=== PATIENT | male | born 1975 | race Two or more races ===

== ENCOUNTER 2016-08-25 01:30 | Inpatient (IN) | payer MEDICAID ==
[2016-08-25] VITALS (84 sets, daily range): BP systolic 86–131; BP diastolic 43–109; PULSE 82–110; RESP 6–24; Ht 165.1 cm; Wt 86.1 kg
[~2016-08-25] VITALS: Ht 165.1 cm; Wt 86.1 kg
[2016-08-25] MEDS ORDERED: AMIODARONE 150 MG INJ ONE ×2 (01:46→02:40)
[2016-08-25] MEDS ORDERED: PROPOFOL 100 ML ONE (01:47)
[2016-08-25] MEDS ORDERED: PROPOFOL 100 ML IV STA (01:55)
[2016-08-25] MEDS ORDERED: SODIUM CHLORIDE 0.9% 500 ML BAG IV* STA (01:55)
[2016-08-25] MEDS ORDERED: VECURONIUM 100 MG in DEXTROSE 5% 100 ML IV ONE (01:55)
[2016-08-25] MEDS ORDERED: ASPIRIN 300 MG SUPP PR STA (01:55)
[2016-08-25] MEDS ORDERED: AMIODARONE 900 MG in DEXTROSE 5% 482 ML IV SCH ×4 (02:00)
[2016-08-25] MEDS ORDERED: PROPOFOL 100 ML IV ONE (02:00)
--- NOTE | 2016-08-25 02:10 | ERA ---
ER Documentation Chief Complaint Date/Time DATE: 08/25/16 TIME: 02:06 Chief Complaint HPI This is a 41-year-old male who comes in in cardiac arrest post V. fib. Patient was pulseless upon arrival. Upon arrival patient immediately placed on tire care manager which showed atrial fibrillation. ACLS started. Patient shocked multiple times. We were able to revive the patient. Hypothermia started immediately. No real history is known about this patient other than the fact that the family found him down for an unknown amount of time but not greater than [address] denton.of cardiology contacted immediately. Patient to go to laborer pipeline for intervention ROS All systems reviewed and are negative except as per history of present illness. Allergies Allergies: Coded Allergies: No Known Allergy (Unverified , 08/25/16) Physical Exam Physical Exam Const: [] Head: Atraumatic Eyes: Normal Conjunctiva ENT: Normal External Ears, Nose and Mouth. Neck: Full range of motion..~ No meningismus. Resp: Clear to auscultation bilaterally Cardio: Regular rate and rhythm, no murmurs Abd: Soft, non tender, non distended. Normal bowel sounds Skin: No petechiae or rashes Back: No midline or flank tenderness Ext: No cyanosis, or edema Neur: Awake and alert Psych: Normal Mood and Affect Results 24 hrs Laboratory Tests Test 08/25/16 01:48 Bedside Glucose 465mg/dL Current Medications Medications (Trade) Dose Ordered Sig/Stan Route PRN Reason Start Time Stop Time Status Last Admin Dose Admin Amiodarone HCl/ Dextrose (Cordarone Iv/ D5W) 500 ml @ 0 mls/hr Q0M IV 08/25/16 02:00 08/26/16 01:59 UNV Amiodarone HCl 150 mg 150 mg STK-MED ONCE .ROUTE 08/25/16 01:46 08/25/16 01:47 DC Propofol 100 ml @ ud STK-MED ONCE .ROUTE 08/25/16 01:47 08/25/16 01:48 DC Propofol (Diprivan) 100 ml @ 0 mls/hr TITRATE ONCE IV 08/25/16 02:00 08/25/16 02:01 UNV Sodium Chloride 500 ml 500 ml ONCE STAT IV* 08/25/16 01:55 08/25/16 01:58 DC Propofol (Diprivan) 100 ml @ 0 mls/hr ONCE STAT IV 08/25/16 01:55 08/25/16 01:58 DC Aspirin 300 mg 300 mg ONCE STAT AL 08/25/16 01:55 08/25/16 01:58 DC Vecuronium [place] 100 mg/ Dextrose 100 ml @ 0 mls/hr Q0M ONCE IV 08/25/16 01:55 08/25/16 01:58 DC Amiodarone HCl/ Dextrose (Cordarone Iv/ D5W) 500 ml @ 0 mls/hr Q0M IV 08/25/16 02:00 08/26/16 01:59 Procedures/MDM EKG: Post arrest Rate/Rhythm: [Normal Sinus Rhythm] QRS, ST, T-waves: ST segment elevation in 1 aVL with reciprocal depressions and 2 3 aVF Impression: STEMI Chest X-ray 1V Interpreted by me: Soft Tissue: No acute abnormalities Bones: No acute abnormalities Mediastinum/Cardiac Silhouette/Lungs: [No acute abnormalities] Medical decision-makin-year-old gentleman with ventricular fibrillation arrest. Patient is intubated with a central line and hypothermic protocol has been initiated. Per dog handler, patient given rectal aspirin along with heparin intravenously. Patient will be admitted to intensive care unit before first go to laborer pipeline. More than likely patient suffered massive cardiac event. Family notified. Critical Care: Time: 45 minutes Treatments/Evaluations: Close monitoring and treatment of unstable vital signs, cardiorespiratory, and neurologic status, while maintaining tight balance of fluid, respiratory, and cardiac interventions. Endotracheal Intubation by me: Pre assessment performed. See preceding note for details. Pre-oxygenation performed with 100% oxygen RSI: Performed w/o complication or hypoxic events. Medications as ordered. Blade: [Mac 4] ET Tube: 7.5 cm Depth: 24 cm at the lip Intubation confirmed by colorimetric CO2, equal breath sounds, quiet over the stomach. Chest X-ray 1V Interpreted by me: 3 cm above the maia ET tube. Normal soft tissue, No pneumothorax. Central Line Placement by me: Patient consented, sterilely draped, full prep, gown, glove, mask, time out performed. Anesthesia: 1% lidocaine locally Location: Left subclavian Device: Multiple lumen Technique: Seldinger technique. Secured with suture. Results: Venous return from all ports with easy saline flush. No complications. Guide wire retrieved and disposed of. [Chest X-ray 1V Interpreted by me: Central line in SVC, Normal soft tissue, No evidence of pneumothorax.] Departure Diagnosis: Primary Impression: Cardiac arrest Additional Impression: STEMI (ST elevation myocardial infarction) Qualified Code: I21.3 - ST elevation myocardial infarction (STEMI), unspecified artery Condition: Critical ARIES DUNBAR Aug 25, 2016 02:10
[2016-08-25] MEDS ORDERED: NA BICARBONATE 8.4% 50 ML SYG IV STA (02:20)
[2016-08-25 02:22] LABS: ADD SCAN DIFF NO
[2016-08-25 02:24] LABS: ABNORMAL IP MESSAGE 1; HEMATOCRIT 54.6 % (42.0-52.0); HEMOGLOBIN 16.4 g/dl (14.0-18.0); MEAN CORPUSCULAR HEMOGLOBIN 30.3 pg (29.0-33.0); MEAN CORPUSCULAR VOLUME 100.7 fl (82.0-101.0); MEAN PLATELET VOLUME 10.9 fl (7.4-10.4); PLATELET COUNT 74 10^3/UL (140-415); RED BLOOD COUNT 5.42 10^6/ul (4.70-6.10); RED CELL DISTRIBUTION WIDTH 13.7 % (11.5-14.5); WHITE BLOOD COUNT 19.3 10^3/ul (4.8-10.8)
[2016-08-25] MEDS ORDERED: NORepinephrine 8MG/250 ML (PMX 250 ML ONE ×2 (02:29→08:07)
[2016-08-25] MEDS ORDERED: HEPARIN 5,000 UNIT/0.5 ML VIAL IV ONE (02:30)
[2016-08-25 02:34] LABS: ALBUMIN 3.8 g/dl (3.3-4.9); INR 1.67; POTASSIUM 4.6 mmol/L (3.5-5.1); PROTIME 19.8 Sec (12.2-14.2); PT RATIO 1.5
[2016-08-25 02:36] LABS: CREATININE 1.1 mg/dl (0.61-1.24)
--- NOTE | 2016-08-25 02:36 | RADRPT ---
PROCEDURE: Chest. CLINICAL INDICATION: Chest pain. TECHNIQUE: Single frontal view of the chest was obtained. COMPARISON: None. FINDINGS: There is an endotracheal tube 4.5 cm above the maia. The cardiac silhouette is within normal limi ts. The aortic arch is unremarkable. There are hazy and patchy opacities bilaterally. There is no pleural effusion. There is no pneumothorax. IMPRESSION: Bilateral hazy and patchy opacities could represent pulmonary edema and/or multifocal pneumonia. Endotracheal tube in place. .Priyank Lucero MD, MD Date Time Electronically viewed and signed by .Priyank Lucero MD, on 08/25/2016 02:36 .T/
[2016-08-25 02:37] LABS: ALBUMIN/GLOBULIN RATIO 1.22; BILIRUBIN,INDIRECT 0.3 mg/dl (0-1.1); BILIRUBIN,TOTAL 0.3 mg/dl (0.2-1.3); TOTAL PROTEIN 6.9 g/dl (6.1-8.1)
[2016-08-25 02:38] LABS: CALCIUM 9.4 mg/dl (8.4-10.2); MAGNESIUM 2.7 mg/dl (1.7-2.5)
[2016-08-25] MEDS ORDERED: EPINEPHrine 0.1 MG/ML SYG ONE (02:40)
[2016-08-25] MEDS ORDERED: NA BICARBONATE 8.4% 50 ML SYG ONE ×4 (02:40→14:00)
[2016-08-25] MEDS ORDERED: DEXTROSE 50% 50 ML SYRINGE ONE (02:40)
[2016-08-25] MEDS ORDERED: CA CHLORIDE 10% 10 ML SYRINGE ONE (02:40)
[2016-08-25] MEDS ORDERED: IOHEXOL 350MG/ML 50 ML BTL ONE (02:45)
[2016-08-25] MEDS ORDERED: MIDAZOLAM 1 MG/ML 2 ML INJ ONE (02:45)
[2016-08-25] MEDS ORDERED: HEPARIN 1000 UNITS/ML 10 ML INJ ONE (02:45)
[2016-08-25] MEDS ORDERED: FENTAnyl 50 MCG/ML VIAL ONE (02:45)
[2016-08-25] MEDS ORDERED: LIDOCAINE 1% (MDV) 20 ML INJ ONE (02:45)
[2016-08-25] MEDS ORDERED: IODIXANOL LOCM 100 ML BTL ONE (02:45)
[2016-08-25] MEDS ORDERED: VERAPAMIL 5 MG INJ ONE (02:46)
[2016-08-25] MEDS ORDERED: NITROGLYCERIN (IC) 100 MCG/ML INJ ONE (02:46)
[2016-08-25 02:49] LABS: TROPONIN-I 0.063 ng/ml (0.00-0.12)
[2016-08-25 02:52] LABS: PHOSPHORUS 13.6 mg/dl (2.5-4.9)
[2016-08-25 03:10] LABS: PARTIAL THROMBOPLASTIN TIME 114.2 Sec (25.0-35.0)
[2016-08-25] MEDS ORDERED: BIVALIRUDIN 250MG /NS 50 ML 50 ML IVPB ONE (03:23)
[2016-08-25] MEDS ORDERED: PROPOFOL 20 ML ONE ×2 (03:25→03:28)
[2016-08-25 03:53] LABS: EOSINOPHILS # 1.2 10^3/ul (0.0-0.5); LYMPHOCYTES # 13.1 10^3/ul (0.8-2.9); MONOCYTE # 0.8 10^3/ul (0.3-0.9); NEUTROPHIL # 2.9 10^3/ul (1.6-7.5)
[2016-08-25 03:54] LABS: PLATELET ESTIMATE PLT APPEAR DECREASED
[2016-08-25] MEDS ORDERED: SOD CHLORIDE 0.9% 1,000 ML IV SCH ×2 (04:05→05:03)
[2016-08-25] MEDS ORDERED: INSULIN HUMAN REGULAR 100 UNIT in SOD CHLORIDE 0.9% 99 ML IV SCH ×2 (04:41→05:03)
--- NOTE | 2016-08-25 04:46 | HP ---
Date/Time of Note Date/Time of Note DATE: 08/25/16 TIME: 04:40 Assessment/Plan VTE Prophylaxis VTE Prophylaxis Intervention: contraindicated (Bleeding Risk. Possibly bleeding now - found BRBPR. Labs pending. R/O DIC) Assessment/Plan Assessment/Plan 1) Cardiac arrest, revived in ER after several rounds of CPR and multiple shocks, intubated - Revived. Found to have post arrest STEMI, taken directly to the forestry farm laborer 2) STEMI (ST elevation myocardial infarction) s/p Angioplasty and balloon stent placement - Admit to Intensive Care - Majority of orders provided by Dr. Dyer - Due to get hypothermia treatment - CONSULT: Critical Care - Dr. Angel - Insulin Drip and follow-up as requested by Dr. Dyer. Hgb A1c pending. HPI/ROS Admit Date/Time Admit Date/Time 08/25/16 0441 Hx of Present Illness This is a 41 year old male who just arrived in the ICU after undergoing successful Coronary Artery Catheterization with Angioplasty and Balloon Pump placement by Dr. Dyer. He is currently intubated and on a ventilator. Labs are pending to help with immediate management, and a few minutes ago, he passed BRBPR. Labs are pending. If he is in ER Physician reports: this is a 41-year-old male who comes in in cardiac arrest post V. fib. Patient was pulseless upon arrival. Upon arrival patient immediately placed on cardiac rehabilitation program director which showed atrial fibrillation. ACLS started. Patient shocked multiple times. We were able to revive the patient. Hypothermia started immediately. No real history is known about this patient other than the fact that the family found him down for an unknown amount of time but not greater than [address] Dyer.of cardiology contacted immediately. Patient to go to forestry farm laborer for intervention. He was intubated and a central line placed while in the ER. ROS Unable to obtain due to Critical Condition of Chronic Trach patient, now on Ventilator in ICU. PMH/Family/Social Social History Smoking Status: Unknown if ever smoked Exam/Review of Systems Vital Signs Vitals Vital Signs Date Time Temp Pulse Resp B/P Pulse Ox O2 Delivery O2 Flow Rate FiO2 08/25/16 01:57 83 16 94 100 08/25/16 01:50 99.1 92/64 Exam Exam General: Intubated, Ventilated, Sedated Eyes: Sclera White HENT: Normocephalic/Atraumatic, External Ears/Nose Normal Neck: Trachea Midline Cardiovascular: Normal Rate, Regular Rhythm, No Murmur, No Extra Sounds. Radial pulse +2/4. No pedal Edema. Pulmonary: Coarse breath sounds throughout Gastrointestinal: Normoactive Bowel Sounds, Soft, Non-Tender/Non-Distended, No Hepatosplenomegaly Appreciated Urogenital: Deferred Musculoskeletal: Normal Muscle Bulk, On Propofol and a Paralytic Neurological: Unable to assess Integumentary: Normal Moisture and Temperature, Good Turgor, No Jaundice, No Rash Lymphatic: No Cervical Lymphadenopathy Psychiatric: Unable to assess Labs Result Diagram: 08/25/1621408/25/16214 Medications Medications Current Medications Medications (Trade) Dose Ordered Sig/Stan Route PRN Reason Start Time Stop Time Status Last Admin Dose Admin Amiodarone HCl/ Dextrose (Cordarone Iv/ D5W) 500 ml @ 0 mls/hr Q0M IV 08/25/16 02:00 08/26/16 01:59 UNV Amiodarone HCl 150 mg 150 mg STK-MED ONCE .ROUTE 08/25/16 01:46 08/25/16 01:47 DC Propofol 100 ml @ ud STK-MED ONCE .ROUTE 08/25/16 01:47 08/25/16 01:48 DC Propofol (Diprivan) 100 ml @ 0 mls/hr TITRATE ONCE IV 08/25/16 02:00 08/25/16 02:01 UNV Sodium Chloride 500 ml 500 ml ONCE STAT IV* 08/25/16 01:55 08/25/16 01:58 DC Propofol (Diprivan) 100 ml @ 0 mls/hr ONCE STAT IV 08/25/16 01:55 08/25/16 01:58 DC Aspirin 300 mg 300 mg ONCE STAT OK 08/25/16 01:55 08/25/16 01:58 DC Vecuronium [place] 100 mg/ Dextrose 100 ml @ 0 mls/hr Q0M ONCE IV 08/25/16 01:55 08/25/16 01:58 DC Amiodarone HCl/ Dextrose (Cordarone Iv/ D5W) 500 ml @ 0 mls/hr Q0M IV 08/25/16 02:00 08/26/16 01:59 Procedures Procedures Test 08/25/16 01:48 Bedside Glucose 465mg/dL EKG: Post arrest Interpreted by ER Physician Rate/Rhythm: [Normal Sinus Rhythm] QRS, ST, T-waves: ST segment elevation in 1 aVL with reciprocal depressions and 2 3 aVF Impression: STEMI PROCEDURE: Chest. CLINICAL INDICATION: Chest pain. TECHNIQUE: Single frontal view of the chest was obtained. COMPARISON: None. FINDINGS: There is an endotracheal tube 4.5 cm above the maia. The cardiac silhouette is within normal limits. The aortic arch is unremarkable. There are hazy and patchy opacities bilaterally. There is no pleural effusion. There is no pneumothorax. IMPRESSION: Bilateral hazy and patchy opacities could represent pulmonary edema and/or multifocal pneumonia. Endotracheal tube in place. LESLEY NAILS DO Aug 25, 2016 04:46 pneumothorax.
[2016-08-25] MEDS ORDERED: DEXTROSE 50% 50 ML SYRINGE IV PRN ×4 (05:00→05:30)
[2016-08-25] MEDS: PROPOFOL 100 ML IV SCH ×4 (05:00→21:07)
[2016-08-25] MEDS: ACCU-CHEK XX SCH ×18 (05:25→23:19)
[2016-08-25] MEDS ORDERED: MEPERIDINE 25 MG INJ IV PRN ×2 (05:30)
[2016-08-25] MEDS ORDERED: ACETAMINOPHEN 650MG/20.3ML CUP PO PRN (05:30)
[2016-08-25] MEDS ORDERED: PROPOFOL 100 ML IV SCH (05:30)
[2016-08-25] MEDS ORDERED: ACCU-CHEK XX SCH (05:30)
[2016-08-25] MEDS ORDERED: ACETAMINOPHEN 650 MG SUPP PR PRN (05:30)
--- NOTE | 2016-08-25 05:43 | SP ---
DATE OF PROCEDURE: 08/25/2016 NAME OF PROCEDURE: 1. Emergent left heart catheterization, selective right and left coronary angiography. 2. Angioplasty of left anterior descending artery: 3. Angioplasty of the left circumflex artery. 4. Intraaortic balloon pump placement. 5. Moderate sedation for more than 45 minutes. SURGEON: Dennis Dyer MD CLINICAL INDICATIONS: A 41-year-old gentleman who presented with ventricular fibrillation cardiac a rrest, ST elevation [place]. EKG post-infarct showed diffuse ST elevation myocardial infarction in the a nterolateral leads consistent with anterolateral ST elevation myocardial infarction. FINDINGS: 1. Left main coronary artery is a long vessel. It is large with about 20% stenosis. 2. Left anterior descending is a long vessel which wraps around the apex. It has about 99% mid les ion. After successful angioplasty of this lesion, no significant residual stenosis left. 3. Left circumflex artery is a moderate sized vessel. It is extremely tortuous. Distally, it has about 99% stenosis with CANDACE 2 flow. After successful PTCA of this lesion, there was less than 10% residual stenosis left with CANDACE 3 flow. 4. Right coronary artery is a moderate sized vessel. It is 100% occluded proximally. There are le ft to right collaterals noted consistent with chronic total occlusion right coronary artery. 5. LVEDP is about 22. No significant gradient was noted across the aortic valve. DESCRIPTION OF PROCEDURE: Written informed consent was obtained. The risks and benefits were discu ssed with the patient's nephew and brother. The patient was emergently brought to the cardiovascular lab director, [facility] in supine position. Right groin was prepped and draped in sterile fashion. Right coronary was anesthetized with 1% lidocaine. Using modified Seldinger technique, a 6-Bruneian sheath was placed in right femoral artery. JR4 catheter was advanced into the left ventricle. Hemodynamics were record ed, aortic pressure was measured. It was engaged in the right coronary artery, and angiogram was ob tained. Of note, initial blood pressure was 70/43. Then, JL4 7-Bruneian guide catheter was advanced and engaged the left main coronary artery and angiogram was obtained. A BMW wire used to cross into the LAD lesion. A 2.5 x 12 balloon was used and inflated across the LAD, and the flow was restored . Angiogram was obtained. I decided not to stent the area because of concern about him bleeding. The patient with low platelet, elevated INR. We have already noticed significant bleeding from the ET tube suction. He also has thrombocytopenia, history of poor compliance with medication. I used a 3.0 noncompliant balloon which was placed across the lesion, multiple times inflated. Angiogram w as obtained. Then, BMW wire was used to cross into the left circumflex artery. A 2.5 x 12 balloon was used and advanced across the lesion with difficulty given the severe tortuosity of this vessel. The balloon was inflated multiple times with prolonged inflation up to 12 atmospheres. Angiogram w as obtained. At the LAD, there was another lesion after the area which was ballooned. I was not rubalcava re if it was spasm or hemodynamically significant stenosis. Nitroglycerine intracoronary was given. Improvement was noted, but it was not resolved. I used the same 2.0 balloon, placed across this l esion, and multiple times inflated again. Final angiogram was obtained which showed CANDACE 3 flow, no evidence of dissection, and less than 10 residual stenosis. Catheter and Glidewire were removed. Right femoral angiogram was performed. Given his hemodynamic instability, intraaortic balloon pump was placed as well under direct fluoroscopy. IMMEDIATE COMPLICATIONS: None. TOTAL CONTRAST USED: 140 mL of Visipaque. CONCLUSION: Successful angioplasty of the LAD, left circumflex artery, intraaortic balloon pump. RECOMMENDATIONS: Aggressive medical therapy. Hypothermia will be continued. Intraaortic balloon p ump support will be continued. ICU care, vent support will be continued. Discussed with adis lu. PROGNOSIS: Guarded. Dictated By: DENNIS DUBOSE/PEÑA Conf#: [id number] DID#: [id number]
[2016-08-25] MEDS ORDERED: ARTIFICIAL TEARS 15 ML OPH BOTH EYES SCH (06:00)
[2016-08-25] MEDS ORDERED: PHENYLephrine 20MG IN 250 ML 250 ML IV SCH (06:00)
[2016-08-25] MEDS ORDERED: OCULAR LUBRICANT 3.5 GM OPH OINT BOTH EYES SCH (06:00)
[2016-08-25] MEDS ORDERED: PHENYLephrine 40 MG in DEXTROSE 5% 496 ML IV SCH (06:30)
[2016-08-25 06:31] LABS: ADD SCAN DIFF NO
[2016-08-25 06:42] LABS: ALBUMIN 3.5 g/dl (3.3-4.9)
[2016-08-25 06:43] LABS: ABNORMAL IP MESSAGE 1; HEMATOCRIT 49.8 % (42.0-52.0); HEMOGLOBIN 16.3 g/dl (14.0-18.0); MEAN CORPUSCULAR HEMOGLOBIN 30.7 pg (29.0-33.0); MEAN CORPUSCULAR HGB CONC 32.7 g/dl (32.0-37.0); MEAN CORPUSCULAR VOLUME 93.8 fl (82.0-101.0); MEAN PLATELET VOLUME 10.4 fl (7.4-10.4); PLATELET COUNT 204 10^3/UL (140-415); POTASSIUM 3.4 mmol/L (3.5-5.1); RED BLOOD COUNT 5.31 10^6/ul (4.70-6.10); WHITE BLOOD COUNT 34.5 10^3/ul (4.8-10.8)
[2016-08-25 06:44] LABS: INR 3.09; PROTIME 32.3 Sec (12.2-14.2); PT RATIO 2.5
[2016-08-25 06:45] LABS: ALBUMIN/GLOBULIN RATIO 1.06; BILIRUBIN,INDIRECT 0.6 mg/dl (0-1.1); BILIRUBIN,TOTAL 0.6 mg/dl (0.2-1.3); CREATININE 1.22 mg/dl (0.61-1.24); TOTAL PROTEIN 6.8 g/dl (6.1-8.1)
[2016-08-25 06:46] LABS: CALCIUM 8.3 mg/dl (8.4-10.2); PHOSPHORUS 6.6 mg/dl (2.5-4.9)
[2016-08-25 07:31] LABS: PARTIAL THROMBOPLASTIN TIME > 180.0 Sec (25.0-35.0)
--- NOTE | 2016-08-25 07:39 | CONS ---
DATE OF ADMISSION: 08/25/2016 DATE OF CONSULTATION: 08/25/2016 CARDIOLOGY CONSULTATION REASON FOR CONSULTATION: Cardiopulmonary arrest and ST elevation myocardial infarction. CHIEF COMPLAINT: Cardiac arrest. HISTORY OF PRESENT ILLNESS: History was obtained from the patient's nephew. From discussion with Jesus boucher ____ and also staff, he is an unfortunate 41-year-old gentleman with history of coronary artery d isease, status post PCI apparently 10 years ago, who does not appear to be very compliant with his m edications. The patient was at home on ____; however, today he was found by his nephew to be "choki ng and gagging." He was splashed some water on his face and tried to get him better. The patient w as unresponsive. He put him down, and paramedics were called. Paramedics monitored and noted the p atient to be in V-fib arrest. Multiple shocks were done. They had difficulty extubating the patien t. The patient was intubated in the emergency room. The EKG has shown marked diffuse ST elevation anterolaterally. I was called active code STEMI. The patient has been unresponsive, and hypothermi a protocol has been done. Has been hypotensive and placed on Levophed. PAST MEDICAL HISTORY: Obtained from the family members. History of hypertension, history of morin ry artery disease, status post AK, status post PCI about 10 years ago, history of dyslipidemia. MEDICATIONS AT HOME: Unclear if he takes any medication or not. He is not taking his cholesterol m edication apparently. SOCIAL HISTORY: He smokes. He has been a heavy drinker as well. FAMILY HISTORY: Positive for coronary artery disease. REVIEW OF SYSTEMS: Unable to obtain as well. MEDICATIONS: At home unclear. He apparently does not take much medication. PHYSICAL EXAMINATION: VITAL SIGNS: Temperature 99.1, heart rate of 98, blood pressure 92/64, respiration rate of 16, satu rating 94%, 100% on oxygen. HEENT: Status post intubation on the vent. Pupils are dilated. CARDIOVASCULAR: Regular rate and rhythm. PULMONARY: Diffuse rhonchi. GASTROINTESTINAL: Soft, nontender. EXTREMITIES: Trivial edema. NEUROLOGIC: No response to verbal stimuli. LABORATORY: WBC of 20.3, hemoglobin 15.4, platelets of 74. INR is 1.67. EKG showed sinus rhythm with marked ST elevation diffusely consistent with anterolateral ST elevatio n myocardial infarction. ASSESSMENT AND PLAN: 1. Cardiopulmonary arrest. 2. Ventricular fibrillation cardiac arrest. 3. Acute diffuse anterolateral ST elevation myocardial infarction with history of coronary artery d isease. 4. Severe hyperglycemia consistent with diabetes. 5. History of dyslipidemia. 6. History of percutaneous coronary intervention. 7. Poor compliance. 8. Alcohol use. 9. History of tobacco use. 10. Congestive heart failure. 11. Cardiogenic shock. RECOMMENDATIONS: The patient has been given aspirin and heparin. He will be taken to the labor relations teacher immediately as soon as the labor relations teacher is available. I have explained the high risk situation and high mortality rate as well as risk of stroke, AK, vascular complication, renal failure, etc. to the pat ient's brother and nephew who were at the bedside. They have consented to procedure. The patient's brother, however, appeared to be intoxicated though. Prognosis appears to be guarded, but given hi s young age and his presentation, I explained to the family that we will do all we can including car diac catheterization to provide him the best chance. Dictated By: DENNIS DUBOSE/PEÑA Conf#: [id number] DID#: [id number]
[2016-08-25] MEDS: PIPER-TAZO 3.375 GM IV (PMX) 100 ML IVPB SCH ×3 (08:16→17:31)
[2016-08-25 08:58] LABS: AADO2 Arterial 589.9 mmHg (7.0-24.0); Arterial Base Excess -5.8 mmol/L (-3.0-3); Arterial COHb 3.1 % (0.0-3.0); Arterial Fraction of Oxyhgb 89.2 % (93.0-99.0); Arterial HCO3 21.6 mmol/L (22.0-26.0); Arterial MetHb 0.3 % (0.0-1.5); Arterial Total Hemglobin 14.9 g/dl (12.0-18.0); MODE VENT - AC
[2016-08-25 08:59] LABS: AADO2 Arterial 594.5 mmHg (7.0-24.0); Arterial Base Excess -11.8 mmol/L (-3.0-3); Arterial COHb 3.8 % (0.0-3.0); Arterial Fraction of Oxyhgb 88.8 % (93.0-99.0); Arterial HCO3 15.4 mmol/L (22.0-26.0); Arterial MetHb 0.3 % (0.0-1.5); Arterial Total Hemglobin 15.2 g/dl (12.0-18.0); Blood Gas Low PEEP Setting 0 cmH2O; MODE VENT - AC
[2016-08-25 08:59] LABS: AADO2 Arterial 554.2 mmHg (7.0-24.0); Allen Test ACCEPTAB; Arterial COHb 5.1 % (0.0-3.0); Arterial Fraction of Oxyhgb 89.8 % (93.0-99.0); Arterial HCO3 11.8 mmol/L (22.0-26.0); Arterial MetHb 0.3 % (0.0-1.5); Arterial Total Hemglobin 15.4 g/dl (12.0-18.0); MODE VENT - AC
[2016-08-25] MEDS ORDERED: PANTOPRAZOLE 40 MG INJ IV SCH (09:00)
[2016-08-25] MEDS ORDERED: FAMOTIDINE 20 MG INJ IV SCH (09:00)
[2016-08-25 09:11] LABS: FIBRINOGEN < 40.0 mg/dl (207-461)
--- NOTE | 2016-08-25 09:24 | RADRPT ---
PROCEDURE: XR Abdomen CLINICAL INDICATION: Confirm NG/OG tube placement TECHNIQUE: An AP supine radiograph of the abdomen was submitted. COMPARISON: None FINDINGS: No NG tube or OG tube is identified. The stomach is moderately distended with gas. The bowel gas pattern otherwise reflects an ileus. No organomegaly or discrete mass is identified. No pathological calcification is identified. Residual contrast is seen within the urinary tracts and a Jacobo catheter is seen within a nondistend ed bladder. The osseous elements appear intact. IMPRESSION: 1. Moderate gaseous distension of the stomach with the bowel gas pattern otherwise reflecting a mil d ileus. 2. Residual contrast is seen within the urinary tract with a Jacobo catheter seen in the bladder. 3. An NG tube is not identified. Physician Kristen Date Time Electronically viewed and signed by Physician Kristen on 08/25/2016 09:24 /
[2016-08-25 09:27] LABS: D-DIMER > 10000.00 ng/ml (<460)
--- NOTE | 2016-08-25 09:28 | RADRPT ---
PROCEDURE: XR Chest AP portable CLINICAL INDICATION: CHF TECHNIQUE: An AP portable radiograph of the chest was submitted. COMPARISON: 08/25/2016 FINDINGS: Support Hardware: An NG tube tip projects to the neck at the level of C6. An endotracheal tube is s atisfactorily positioned. A loop recorder is identified. Cardiovascular: The heart size remains normal. The pulmonary vasculature appears congested. Lung Ragland: Asymmetrical bilateral pulmonary infiltrates are evident more extensive than alveolar o n the right and more interstitial on the left having worsened since the previous study. Pleural Spaces: No pneumothorax or pleural effusion is identified. Osseous Structures: The osseous structures appear intact. Soft Tissues: The soft tissues appear unremarkable. IMPRESSION: 1. NG tube tip projects to the level of C6 wall and endotracheal tube is satisfactorily positioned. 2. Normal sized heart with the pulmonary vasculature appearing congested. 3. Asymmetrical pulmonary infiltrates more extensive alveolar on the right and more interstitial on the left, worsened from the previous. Physician Kristen Date Time Electronically viewed and signed by Physician Kristen on 08/25/2016 09:28 /
[2016-08-25] MEDS: morphine 2 MG INJ IV PRN ×2 (10:44→15:53)
[2016-08-25] MEDS: PANTOPRAZOLE 40 MG INJ IV SCH ×2 (10:49→21:05)
[2016-08-25 11:15] LABS: EOSINOPHILS # 0.3 10^3/ul (0.0-0.5); LYMPHOCYTES # 3.5 10^3/ul (0.8-2.9); MYELOCYTES # 0.3; NEUTROPHIL # 23.8 10^3/ul (1.6-7.5)
[2016-08-25 11:20] LABS: AADO2 Arterial 493.9 mmHg (7.0-24.0); Arterial Base Excess 0.5 mmol/L (-3.0-3); Arterial COHb 0.3 % (0.0-3.0); Arterial Fraction of Oxyhgb 98.2 % (93.0-99.0); Arterial HCO3 24.6 mmol/L (22.0-26.0); Arterial MetHb 0.4 % (0.0-1.5); Arterial Total Hemglobin 16.5 g/dl (12.0-18.0); MODE VENT - AC
[2016-08-25] MEDS ORDERED: POTASSIUM CHLORIDE 250 ML IVPB ONE (11:30)
--- NOTE | 2016-08-25 12:06 | CONS ---
Date/Time of Note Date/Time of Note DATE: 08/25/16 TIME: 12:01 Assessment/Plan Assessment/Plan Additional Assessment/Plan X-ray was reviewed from today which is showing a right upper lobe infiltrate. Endotracheal tube is at an adequate level. Ventilator setting; AC of 18, tidal volume 500, PEEP of 5, 100% FiO2. Assessment recommendations; 1. Patient admitted for cardiac arrest due to acute [place] underwent emergent coronary angiography. 2. Prior history of coronary artery disease. 3. Status post CPR lasting proximity 10 minutes patient however exhibiting excellent mental status. Not requiring hypothermia protocol. 4. Right upper lobe pneumonia, likely aspiration. 5. Some element of intravascular volume depletion. 6. Cardiogenic shock. Currently requiring intra-aortic balloon pump and one-to -one augmentation. Obtain a repeat blood gas on current ventilator settings. Once ABGs obtained I will review it and make further recommendations regarding ventilator settings. Meanwhile add cefepime 1 g IV every 12 hours. Obtain a follow-up chest x-ray in 24 hours. Wean off Levophed as tolerated. Consultation Date/Type/Reason Admit Date/Time 08/25/16 0441 Date of Consultation: Aug 25, 2016 Type of Consultation: Pulmonary/critical care Reason for Consultation Pulmonary consultations requested for evaluation of respiratory failure. Patient admitted with cardiac arrest due to acute [place]. History presenting; patient is a 41-year-old white male who was brought into the emergency room after undergoing cardiac arrest. Patient was taken emergently to the [facility] where emergent coronary angiography was performed to of the lesions required stenting of the patient did have 100% RCA occlusion which could not be stented. The patient has remained on ventilator currently requiring intra-aortic balloon pump with one-to-one augmentation ratio. The patient despite undergoing CPR is completely awake alert and has remained hemodynamically stable. Past medical history; 1. Patient with a history of prior coronary artery disease status post PTCA about 10 years ago. 2. History of noncompliance with medication. Medications; were reviewed. Allergies; are none. Social history; patient does not smoke. Family history; patient has a supportive family. Various family members have heart disease. Occupational history; not available. Review of systems; limited review of systems could be obtained patient denies any headache, any chest pain, any shortness of breath, any abdominal pain, nausea vomiting. General exam; young male, orally intubated, awake currently in no distress. Social History Smoking Status: Current every day smoker Exam/Review of Systems Vital Signs Vitals Vital Signs Date Time Temp Pulse Resp B/P Pulse Ox O2 Delivery O2 Flow Rate FiO2 08/25/16 09:45 89 16 121/72 100 08/25/16 09:00 Mechanical Ventilator 08/25/16 08:15 97.5 08/25/16 08:00 100 Intake and Output 08/24/16 08/24/16 08/25/16 15:00 23:00 07:00 Intake Total 150 ml Output Total 1000 ml Balance -850 ml Exam HEENT examined; supple neck, no JVD. No lymphadenopathy. Midline trachea. No thyromegaly. Orally intubated. Pupils are midsize and reactive to light. No neck masses. Chest examination; clear to auscultation. S1-S2 audible, no murmurs. Regular rhythm. Abdomen examination; soft, nondistended. No organomegaly. Bowel sounds audible. Extremity exam is; no peripheral edema. Pulses 1+ bilaterally. No clubbing. [employer] examination; patient is awake alert follows commands moves all 4 extremities. Results Result Diagram: 08/25/1659908/25/16599 Results 24 hrs Laboratory Tests Test 08/25/16 01:48 08/25/16 01:55 08/25/16 02:15 08/25/16 02:30 Bedside Glucose 465 *H Blood Gas Specimen Source Blood arterial Blood arterial Arterial Blood Date Drawn 08/25/2016 2:30:00 AM 08/25/2016 3:05:10 AM Arterial Blood pH (Temp corrected) 6.979 *L 7.209 *L Arterial Blood pCO2 (Temp correct) 51.5 H 39.6 Arterial Blood pO2 (Temp corrected) 107.3 H 78.9 L Arterial Blood HCO3 11.8 L 15.4 L Arterial Blood Base Excess -20.0 L -11.8 L Arterial Blood Oxygen Saturation 94.9 L 92.6 L Gregory Test ACCEPTAB N/A Arterial Blood Gas Puncture Site Right Radial A-Line Arterial Blood Carboxyhemoglobin 5.1 H 3.8 H Arterial Blood Methemoglobin 0.3 0.3 Blood Gas A-a O2 Differential 554.2 H 594.5 H Oxyhemoglobin Percent 89.8 L 88.8 L Total Hemoglobin 15.4 15.2 Blood Gas Temperature 37.0 37.0 Blood Gas Respiration Rate 16.0 16.0 Blood Gas Actual Respiration Rate 16 16 Blood Gas Modality VENT - AC VENT - AC FiO2 100.0 100.0 Blood Gas Tidal Volume 600.0 600.0 Blood Gas High PEEP Setting 5.0 Blood Gas Critical Value Read Back DR CHAO Knight Blood Gas Notified Whom STEFFANY AA Blood Gas Notified Time 08/25/2016 2:38:00 AM 08/25/2016 3:20:12 AM White Blood Count 19.3 H Red Blood Count 5.42 Hemoglobin 16.4 Hematocrit 54.6 H Mean Corpuscular Volume 100.7 Mean Corpuscular Hemoglobin 30.3 Mean Corpuscular Hemoglobin Concent 30.0 L Red Cell Distribution Width 13.7 Platelet Count 74 L Mean Platelet Volume 10.9 H Neutrophils % 15.0 L Lymphocytes % 68.0 H Reactive Lymphocytes % 7.0 Monocytes % 4.0 Eosinophils % 6.0 Nucleated Red Blood Cells % 1.0 H Neutrophils # 2.9 Lymphocytes # 13.1 H Monocytes # 0.8 Eosinophils # 1.2 H Differential Comment MANUAL DIFF Platelet Estimate PLT APPEAR DECREASED Prothrombin Time 19.8 H Prothrombin Time Ratio 1.5 INR International Normalized Ratio 1.67 Activated Partial Thromboplast Time 114.2 *H Sodium Level 145 H Potassium Level 4.6 Chloride Level 99 Carbon Dioxide Level 17 L Anion Gap 34 H Blood Urea Nitrogen 16 Creatinine 1.10 Glucose Level 264 H Calcium Level 9.4 Phosphorus Level 13.6 H Magnesium Level 2.7 H Total Bilirubin 0.3 Direct Bilirubin 0.00 Indirect Bilirubin 0.3 Aspartate Amino Transf (AST/SGOT) 178 H Alanine Aminotransferase (ALT/SGPT) 230 H Alkaline Phosphatase 92 Troponin I 0.063 Total Protein 6.9 Albumin 3.8 Globulin 3.10 Albumin/Globulin Ratio 1.22 Blood Gas Low PEEP Setting 0 Test 08/25/16 03:43 08/25/16 05:03 08/25/16 05:53 08/25/16 06:00 Blood Gas Specimen Source Blood arterial Arterial Blood Date Drawn 08/25/2016 3:43:28 AM Arterial Blood pH (Temp corrected) 7.258 *L Arterial Blood pCO2 (Temp correct) 49.4 H Arterial Blood pO2 (Temp corrected) 73.7 L Arterial Blood HCO3 21.6 L Arterial Blood Base Excess -5.8 L Arterial Blood Oxygen Saturation 92.3 L Gregory Test N/A Arterial Blood Gas Puncture Site A-Line Arterial Blood Carboxyhemoglobin 3.1 H Arterial Blood Methemoglobin 0.3 Blood Gas A-a O2 Differential 589.9 H Oxyhemoglobin Percent 89.2 L Total Hemoglobin 14.9 Blood Gas Temperature 37.0 Blood Gas Respiration Rate 16.0 Blood Gas Actual Respiration Rate 16 Blood Gas Modality VENT - AC FiO2 100.0 Blood Gas Tidal Volume 600.0 Blood Gas Low PEEP Setting 5.0 Blood Gas Critical Value Read Back Antonia THORNE MD Blood Gas Notified Whom RENATA Blood Gas Notified Time 08/25/2016 3:52:23 AM Bedside Glucose 217 224 H White Blood Count 34.5 #H Red Blood Count 5.31 Hemoglobin 16.3 Hematocrit 49.8 Mean Corpuscular Volume 93.8 Mean Corpuscular Hemoglobin 30.7 Mean Corpuscular Hemoglobin Concent 32.7 Red Cell Distribution Width 14.0 Platelet Count 204 # Mean Platelet Volume 10.4 Neutrophils % 69.0 Band Neutrophils % 19.0 H Lymphocytes % 10.0 L Eosinophils % 1.0 Myelocytes % 1.0 H Neutrophils # 23.8 H Lymphocytes # 3.5 H Eosinophils # 0.3 Myelocytes # 0.3 Prothrombin Time 32.3 #H Prothrombin Time Ratio 2.5 INR International Normalized Ratio 3.09 Activated Partial Thromboplast Time > 180.0 *H Sodium Level 143 Potassium Level 3.4 L Chloride Level 100 Carbon Dioxide Level 26 Anion Gap 20 #H Blood Urea Nitrogen 25 H Creatinine 1.22 Glucose Level 230 H Calcium Level 8.3 L Phosphorus Level 6.6 #H Magnesium Level 2.4 Total Bilirubin 0.6 Direct Bilirubin 0.00 Indirect Bilirubin 0.6 Aspartate Amino Transf (AST/SGOT) 542 #H Alanine Aminotransferase (ALT/SGPT) 312 H Alkaline Phosphatase 141 #H Lactate Dehydrogenase 3394 H Creatine Kinase 6769 H Creatine Kinase Index 2.8 Creatinine Kinase MB (Mass) 192.00 H Troponin I 108.000 *H Total Protein 6.8 Albumin 3.5 Globulin 3.30 H Albumin/Globulin Ratio 1.06 Triglycerides Level 708 H Cholesterol Level 243 H LDL Cholesterol, Calculated 79 HDL Cholesterol 22 L Cholesterol/HDL Ratio 11.0 Amylase Level 323 H Lipase 177 Test 08/25/16 06:20 08/25/16 07:30 08/25/16 07:50 08/25/16 08:59 Stool Occult Blood POSITIVE Fibrinogen < 40.0 L D-Dimer > 54645.00 H Bedside Glucose 212 151 Test 08/25/16 09:56 08/25/16 10:56 08/25/16 11:02 Bedside Glucose 133 128 Blood Gas Specimen Source Blood arterial Arterial Blood Date Drawn 08/25/2016 11:10:12 AM Arterial Blood pH (Temp corrected) 7.428 Arterial Blood pCO2 (Temp correct) 38.1 Arterial Blood pO2 (Temp corrected) 181.0 H Arterial Blood HCO3 24.6 Arterial Blood Base Excess 0.5 Arterial Blood Oxygen Saturation 98.9 H Gregory Test N/A Arterial Blood Gas Puncture Site A-Line Arterial Blood Carboxyhemoglobin 0.3 Arterial Blood Methemoglobin 0.4 Blood Gas A-a O2 Differential 493.9 H Oxyhemoglobin Percent 98.2 Total Hemoglobin 16.5 Blood Gas Temperature 37.0 Blood Gas Respiration Rate 16.0 Blood Gas Actual Respiration Rate 16 Blood Gas Modality VENT - AC FiO2 100.0 Blood Gas Tidal Volume 600.0 Blood Gas Low PEEP Setting 5.0 Blood Gas Notified Whom JLD Blood Gas Notified Time 08/25/2016 11:20:07 AM Medications Medications Current Medications Amiodarone HCl 900 mg/Dextrose 500 ml @ 0 mls/hr Q0M IV Last administered on 03:05; Admin Dose 33.4 MLS/HR; Start 08/25/16 at 02:00; Stop 08/26/16 at 01:59 Amiodarone HCl 900 mg/Dextrose 500 ml @ 0 mls/hr Q0M IV ; Start 08/25/16 at 02: 00; Stop 08/26/16 at 01:59 Norepinephrine 16 mg/Dextrose 500 ml @ 1.87 mls/hr TITRATE IV Last administered on 08/25/16 02:34; Admin Dose 1.87 MLS/HR; Start 08/25/16 at 02:30 Sodium Chloride (NS) 1,000 ml @ 75 mls/hr [id number] IV Last administered on 08/25 08:16; Admin Dose 75 MLS/HR; Start 08/25/16 at 04:05; Stop 08/25/16 at 17: 24 Aspirin (Aspirin) 300 mg DAILY MS ; Start 08/26/16 at 09:00 Diagnostic Test (Pha) (Accu-Chek) 1 ea Q1H XX Last administered on 08/25/16 10 :58; Admin Dose 1 EA; Start 08/25/16 at 05:00 Dextrose (D50w Syringe) 25 ml Q15M PRN IV Till BS 80 mg/dL or above x2; Start 08/25/16 at 05:00 Dextrose 50 ml 50 ml Q15M PRN IV Till BS 80 mg/dL or above x2; Start 08/25/16 at 05:00 Propofol 100 ml @ 3 mls/hr Q12H IV Last administered on 08/25/16 05:00; Admin Dose 30 MLS/HR; Start 08/25/16 at 05:00 Piperacillin Sod/ Tazobactam Sod 100 ml @ 200 mls/hr Q6 IVPB Last administered on 08/25/16 11:27; Admin Dose 200 MLS/HR; Start 08/25/16 at 06:00 Insulin Human Regular/Sodium Chloride (Novolin-R/NS) 100 ml @ 0 mls/hr Q0M IV ; Start 08/25/16 at 05:03 Dextrose (D50w Syringe) 25 ml Q15M PRN IV Till BS 80 mg/dL or above x2; Start 08/25/16 at 05:30 Dextrose 50 ml 50 ml Q15M PRN IV Till BS 80 mg/dL or above x2; Start 08/25/16 at 05:30 Phenylephrine HCl/ Dextrose (Jorge-Syneph/D5W) 500 ml @ 75 mls/hr TITRATE IV ; Start 08/25/16 at 06:30 Pantoprazole (Protonix Iv) 40 mg BID IV Last administered on 08/25/16 10:49; Admin Dose 40 MG; Start 08/25/16 at 11:00 Morphine Sulfate 2 mg 2 mg Q3H PRN IV PAIN LEVEL 6-10 Last administered on 08/25 10:44; Admin Dose 2 MG; Start 08/25/16 at 11:00 Potassium Chloride (KCl 40 MEQ/250 ML NS) 250 ml @ 62.5 mls/hr ONCE ONCE IVPB Last administered on 08/25/16 11:27; Admin Dose 62.5 MLS/HR; Start 08/25/16 at 11:30; Stop 08/25/16 at 15:29 TUYET SCHWARTZ Aug 25, 2016 12:05
[2016-08-25] MEDS ORDERED: CEFEPIME 1GM/50 ML (PMX) 50 ML IVPB SCH (13:00)
--- NOTE | 2016-08-25 15:13 | RADRPT ---
Echocardiogram Report Patient Name: LUZ ELENA EVANS Gender: Male Date: 1975 Study Date: 25-Aug-2016 [employer]: Trae Roldan RDCS Location: [id number] Ref. Physician: DENNIS DYER Quality: Adequate Procedures: Transthoracic echocardiogram with complete 2D, M-Mode, and doppler examination. Indications: STEMI. 2D/M Mode Doppler Measurement Value Normal Ranges Measurement Value Normal Ranges LVIDd 2D 5.4 3.5 - 5.6 cm AV Peak Sylvester 1.0 m/sec LVIDs 2D 3.5 2.1 - 4.1 cm AV Peak PG 4.0 mmHg FS 2D 35.6 % LVOT Peak Sylvester 0.7 m/sec LVPWd 2D 0.9 0.6 - 1.1 cm LVOT Peak PG 2.0 mmHg IVSd 2D 0.7 0.6 - 1.1 cm IVS/LVPW 2D 0.8 AoR Diam 2D 2.9 2.0 - 3.7 cm LA/Ao 2D 1 0 - 1 EDV 2D 162.0 cm3 ESV 2D 43.2 cm3 LA Dimen 2D 2.5 2.3 - 4.0 cm Findings Left Ventricle: Normal left ventricular cavity size. Normal left ventricular wall thickness. Ejection fraction is visually estimated at 2525 %. Abnormal Diastolic Function. Multiple segmental wall motion abnormalities. Right Ventricle: Normal right ventricular size. Normal right ventricular systolic function. Left Atrium: The left atrium is normal in size. Right Atrium: The right atrium is normal in size. Mitral Valve: Normal appearance and function of the mitral valve with trace physiologic regurgitation. Aortic Valve: Normal appearance of the aortic valve. No significant aortic stenosis or insufficiency. Tricuspid Valve: Normal appearance of the tricuspid valve. Unable to obtain RVSP due to minimal presence of tricuspid regurgitation. Pulmonic Valve: Normal pulmonic valve appearance. Pericardium: Normal pericardium with no significant pericardial effusion. Aorta: Normal aortic root. IVC: Inferior vena cava without respiratory collapse, however, patient on ventilator. Conclusions 1.Normal left ventricular cavity size. Normal left ventricular wall thickness. Ejection fraction is visually estimated at 25-25 % (ON levophed and IABP support). . Abnormal Diastolic Function. Multiple segmental wall motion abnormalities. 2.Normal appearance and function of the mitral valve with trace physiologic regurgitation. 3.Normal appearance of the aortic valve. No significant aortic stenosis or insufficiency. 4.Normal appearance of the tricuspid valve. Unable to obtain RVSP due to minimal presence of tricuspid regurgitation. 5.Inferior vena cava without respiratory collapse, however, patient on ventilator. Electronically Signed By: Dennis Dyer 25-Aug-2016 15:12:31 -0700 Patient Name: LUZ ELENA EVANS Study Date: 25-Aug-[id number]
[2016-08-25] MEDS: SOD CHLORIDE 0.9% 1,000 ML IV SCH ×2 (17:56→23:19)
--- NOTE | 2016-08-25 18:38 | PN ---
DATE: 08/25/2016 SUBJECTIVE: No events noted. Discussed with the staff and the patient's mother. Discussed with Dr Prabha Maya. The patient is still intubated on the vent in the ICU. He is still on Levophed. He has had reportedly bright red blood per rectum. ____could not be started because of that. ____ balloo n pump. MEDICATIONS: Reviewed. PHYSICAL EXAMINATION: VITAL SIGNS: Temperature 97.7, heart rate of 82, blood pressure 108/59, respiration rate 23 on 100% oxygen, still saturating 100%. HEENT: Normocephalic, atraumatic. CARDIOVASCULAR: Regular rate and rhythm. PULMONARY: Diffuse rhonchi. GASTROINTESTINAL: Soft. EXTREMITIES: No edema. LABORATORY: WBC of 34.5, hemoglobin of 16.3, platelets of 204. Sodium 143, potassium 3.4, BUN of 2 5, creatinine 1.22, glucose of 230. Most recent glucose 133. ALT of 312, AST of 5.42. Troponin 10 8. CK of 6769. Repeat chest x-ray was done and showed normal heart sounds with cardiopulmonary con gestion. ASSESSMENT AND PLAN: 1. Cardiopulmonary arrest secondary to ventricular fibrillation arrest. 2. Acute anterolateral ST elevation myocardial infarction. 3. Status post emergent PTCA of the LAD and left circumflex artery. 4. Rectal bleeding, gastrointestinal bleed. 5. Elevated LFTs, transaminitis. 6. Encephalopathy. 7. Hyperglycemia/diabetes 8. Dyslipidemia. 9. History of coronary artery disease, status post myocardial infarction. RECOMMENDATIONS: We will continue with supportive care. Levophed will be continued, balloon pump will be continued. Aspirin regularly continued. Hold off on any Plavix or Brilinta given the fact the patient did not get a stent. Suggest angioplasty. The patient has had bleeding now. Statins a re on hold now. ____started due to concern about elevated LFTs. The patient remains in sinus rhyth m now. Amiodarone has been discontinued due to concern about her elevated LFTs again. We will cont inue with the full support and start the patient on antibiotics. Possible aspiration pneumonitis as well. Prognosis guarded. 60 minutes of critical care time was of this patient excluding any procedures. Dictated By: DENNIS DUBOSE/PEÑA Conf#: [id number] [employer]#: [id number]
[2016-08-25] MEDS: MIDAZOLAM (DRIP) 50 mg/50 mL 50 ML IV SCH (18:53)
[2016-08-25] MEDS: FENTAnyl (DRIP) 1000 mcg/100mL 100 ML IV SCH (18:54)
[2016-08-25] MEDS: ACETAMINOPHEN 650MG/20.3ML CUP GTB PRN (20:19)
--- NOTE | 2016-08-25 21:19 | RADRPT ---
PROCEDURE: XR Chest AP portable CLINICAL INDICATION: Verify tube placement TECHNIQUE: An AP portable radiograph of the chest was submitted. COMPARISON: Of the study done earlier on the same date. FINDINGS: Support Hardware: The endotracheal to remain satisfactorily positioned 10 L NG tube is been placed w ith the tip distal to the gas esophageal junction. A left upper extremity PICC catheter is again ev ident with the tip at the junction of the superior vena cava and left innominate vein. A catheter o n the mediastinum to the right of the spine and pleural that may represent a pericardial drain. Cardiovascular: The cardiovascular silhouette appears unremarkable. Lung Ragland: There is increasing opacification of the right hemithorax compatible with worsening inf iltrate and possibly layering of right pleural fluid accumulation. The left lung is clear. Pleural Spaces: No pneumothorax is evident. Osseous Structures: The osseous structures appear intact. Soft Tissues: The soft tissues appear unremarkable. IMPRESSION: 1. The endotracheal tube remain satisfactorily positioned, fall left upper extremity PICC catheter is stable in positioning, the NG tube is then advanced is not satisfactorily positioned, and there i s a catheter projecting to the mediastinum to the right of the thoracic spine which may represent a pericardial drain. 2. The cardiovascular silhouette appears normal. 3. Worsening opacification of the right hemithorax compatible with worsening diffuse infiltrate and possibly gravity dependent layering of right pleural fluid accumulation. No pneumothorax is eviden t. Physician Kristen Date Time Electronically viewed and signed by Physician Kristen on 08/25/2016 21:18 /
[2016-08-26] VITALS (98 sets, daily range): BP systolic 84–137; BP diastolic 43–73; PULSE 76–110; RESP 14–18
[2016-08-26] MEDS: PIPER-TAZO 3.375 GM IV (PMX) 100 ML IVPB SCH ×5 (00:01→23:19)
[2016-08-26] MEDS: ACCU-CHEK XX SCH ×17 (00:01→16:16)
[2016-08-26] MEDS: MIDAZOLAM (DRIP) 50 mg/50 mL 50 ML IV SCH ×3 (02:15→16:17)
[2016-08-26 04:39] LABS: ADD SCAN DIFF NO
[2016-08-26 04:54] LABS: INR 1.27; PT RATIO 1.3
[2016-08-26 04:59] LABS: ABNORMAL IP MESSAGE 1; BASOPHIL # 0.1 10^3/ul (0.0-0.1); BASOPHILS % 0.2 % (0.0-2.0); EOSINOPHILS # 0.1 10^3/ul (0.0-0.5); EOSINOPHILS % 0.3 % (0.0-7.0); HEMATOCRIT 37.9 % (42.0-52.0); HEMOGLOBIN 12.6 g/dl (14.0-18.0); LYMPHOCYTES # 5.4 10^3/ul (0.8-2.9); LYMPHOCYTES % 20.1 % (15.0-51.0); MEAN CORPUSCULAR HEMOGLOBIN 30.7 pg (29.0-33.0); MEAN CORPUSCULAR HGB CONC 33.2 g/dl (32.0-37.0); MEAN CORPUSCULAR VOLUME 92.4 fl (82.0-101.0); MEAN PLATELET VOLUME 10.1 fl (7.4-10.4); MONOCYTE # 2.2 10^3/ul (0.3-0.9); NEUTROPHIL # 18.9 10^3/ul (1.6-7.5); NEUTROPHILS % 70.9 % (39.0-77.0); PLATELET COUNT 144 10^3/UL (140-415); RED CELL DISTRIBUTION WIDTH 14.1 % (11.5-14.5); WHITE BLOOD COUNT 26.7 10^3/ul (4.8-10.8)
[2016-08-26] MEDS: PROPOFOL 100 ML IV SCH ×3 (05:00→16:17)
[2016-08-26 05:12] LABS: ALBUMIN 2.5 g/dl (3.3-4.9); ALBUMIN/GLOBULIN RATIO 0.96; BILIRUBIN,INDIRECT 0.5 mg/dl (0-1.1); BILIRUBIN,TOTAL 0.5 mg/dl (0.2-1.3); CALCIUM 7.1 mg/dl (8.4-10.2); CHOL/HDL RATIO 7.3 RATIO; CREATININE 0.89 mg/dl (0.61-1.24); MAGNESIUM 1.8 mg/dl (1.7-2.5); POTASSIUM 3.3 mmol/L (3.5-5.1); TOTAL PROTEIN 5.1 g/dl (6.1-8.1)
[2016-08-26 05:20] LABS: CK-MB 47.2 ng/ml (0.0-2.4); TROPONIN-I 41.6 ng/ml (0.00-0.12)
[2016-08-26] MEDS ORDERED: ACETAMINOPHEN 650 MG SUPP PR SCH (05:30)
[2016-08-26] MEDS ORDERED: ACETAMINOPHEN 650MG/20.3ML CUP PO SCH (05:30)
[2016-08-26 05:36] LABS: THYROID STIMULATING HORMONE 0.983 MIU/L (0.465-4.680)
[2016-08-26] MEDS ORDERED: MAGNESIUM SULFATE 2 GM/50 ML 50 ML IVPB ONE (07:00)
[2016-08-26] MEDS: POTASSIUM CHLORIDE 50 ML IVPB SCH ×2 (08:37→09:38)
[2016-08-26] MEDS: PANTOPRAZOLE 40 MG INJ IV SCH ×2 (08:39→20:47)
[2016-08-26] MEDS ORDERED: ASPIRIN 300 MG SUPP PR SCH (09:00)
--- NOTE | 2016-08-26 09:36 | CONS ---
Date/Time of Note Date/Time of Note DATE: 08/26/16 TIME: 09:32 Assessment/Plan Assessment/Plan Additional Assessment/Plan Ventilator settings; AC of 16, tidal volume 600, PEEP of 5, 50% FiO2. Patient currently on Levophed at 30 mics per minute, Versed 8 mg/h. Fentanyl 100 mics per hour. Assessment recommendations; 1. Patient admitted for acute SD with cardiogenic shock. 2. Status post emergent coronary angiography with stenting of 2 vessels. 3. 100% RCA occlusion. 4. Prior history of coronary artery disease. 5. History of noncompliance of medication. 6. Possibly some element of aspiration pneumonia. Continue current supportive care. Will obtain follow-up chest x-ray. Wean down FiO2 to keep O2 sat around 92-94%. Consultation Date/Type/Reason Admit Date/Time Aug 25, 2016 at 04:41 Initial Consult Date 08/25/16 Type of Consultation: Pulmonary/critical care 24 HR Interval Summary Free Text/Dictation Patient condition remains critical. Still requiring full ventilator support, intra-aortic balloon pump as well as high-dose Levophed. Patient however has exhibited good mental status off sedation. General exam; young male, orally intubated, currently in no distress, sedated. Exam/Review of Systems Vital Signs Vitals Vital Signs Date Time Temp Pulse Resp B/P Pulse Ox O2 Delivery O2 Flow Rate FiO2 08/26/16 09:15 94 16 100/51 100 08/26/16 09:00 Mechanical Ventilator 08/26/16 08:30 100.1 08/26/16 08:00 50 Intake and Output 08/25/16 08/25/16 08/26/16 15:00 23:00 07:00 Intake Total 1455.48 ml 1378.50 ml 1372.0 ml Output Total 435 ml 700 ml 475 ml Balance 1020.48 ml 678.50 ml 897.0 ml Exam HEENT exam; supple neck, positive JVD. No lymphadenopathy. Midline trachea. No thyromegaly. Orally intubated. Nipples are small bilaterally. No neck masses. Chest exam; clear to auscultation. S1-S2 audible, no murmurs. Regular rhythm. Abdomen exam is; soft, nondistended. No organomegaly. Bowel sounds audible. Extremity exam is; no peripheral edema. Pulses 1+ bilaterally. [employer] examination; patient is sedated. Results Result Diagram: 08/26/16 0420 08/26/16 0420 Results 24 hrs Laboratory Tests Test 08/25/16 09:56 08/25/16 10:56 08/25/16 11:02 08/25/16 12:03 Bedside Glucose 133 128 118 Blood Gas Specimen Source Blood arterial Arterial Blood Date Drawn 08/25/2016 11:10:12 AM Arterial Blood pH (Temp corrected) 7.428 Arterial Blood pCO2 (Temp correct) 38.1 Arterial Blood pO2 (Temp corrected) 181.0 H Arterial Blood HCO3 24.6 Arterial Blood Base Excess 0.5 Arterial Blood Oxygen Saturation 98.9 H Gregory Test N/A Arterial Blood Gas Puncture Site A-Line Arterial Blood Carboxyhemoglobin 0.3 Arterial Blood Methemoglobin 0.4 Blood Gas A-a O2 Differential 493.9 H Oxyhemoglobin Percent 98.2 Total Hemoglobin 16.5 Blood Gas Temperature 37.0 Blood Gas Respiration Rate 16.0 Blood Gas Actual Respiration Rate 16 Blood Gas Modality VENT - AC FiO2 100.0 Blood Gas Tidal Volume 600.0 Blood Gas Low PEEP Setting 5.0 Blood Gas Notified Whom JLD Blood Gas Notified Time 08/25/2016 11:20:07 AM Test 08/25/16 13:00 08/25/16 14:41 08/25/16 15:54 08/25/16 17:57 Bedside Glucose 123 134 118 138 Test 08/25/16 20:14 08/25/16 22:19 08/26/16 00:08 08/26/16 02:13 Bedside Glucose 125 98 114 109 Test 08/26/16 04:18 08/26/16 04:20 08/26/16 06:08 08/26/16 08:25 Bedside Glucose 117 101 117 White Blood Count 26.7 #H Red Blood Count 4.10 #L Hemoglobin 12.6 #L Hematocrit 37.9 #L Mean Corpuscular Volume 92.4 Mean Corpuscular Hemoglobin 30.7 Mean Corpuscular Hemoglobin Concent 33.2 Red Cell Distribution Width 14.1 Platelet Count 144 # Mean Platelet Volume 10.1 Neutrophils % 70.9 Lymphocytes % 20.1 Monocytes % 8.0 Eosinophils % 0.3 Basophils % 0.2 Nucleated Red Blood Cells % 0.0 Neutrophils # 18.9 H Lymphocytes # 5.4 H Monocytes # 2.2 H Eosinophils # 0.1 Basophils # 0.1 Nucleated Red Blood Cells # 0.0 Prothrombin Time 16.0 #H Prothrombin Time Ratio 1.3 INR International Normalized Ratio 1.27 Activated Partial Thromboplast Time 32.0 Sodium Level 140 Potassium Level 3.3 L Chloride Level 113 H Carbon Dioxide Level 26 Anion Gap 4 #L Blood Urea Nitrogen 18 Creatinine 0.89 Glucose Level 123 # Hemoglobin A1c 5.1 Calcium Level 7.1 L Magnesium Level 1.8 Total Bilirubin 0.5 Direct Bilirubin 0.00 Indirect Bilirubin 0.5 Aspartate Amino Transf (AST/SGOT) 377 H Alanine Aminotransferase (ALT/SGPT) 187 H Alkaline Phosphatase 64 # Creatine Kinase Creatine Kinase Index Creatinine Kinase MB (Mass) 47.20 H Troponin I 41.600 *H B-Type Natriuretic Peptide 2250 H Total Protein 5.1 #L Albumin 2.5 #L Globulin 2.60 Albumin/Globulin Ratio 0.96 Triglycerides Level 408 H Cholesterol Level 154 # LDL Cholesterol, Calculated 51 HDL Cholesterol 21 L Cholesterol/HDL Ratio 7.3 Thyroid Stimulating Hormone (TSH) 0.983 Free Thyroxine 1.06 Test 08/26/16 09:06 Bedside Glucose 117 Medications Medications Current Medications Aspirin (Aspirin) 300 mg DAILY HI ; Start 08/26/16 at 09:00 Diagnostic Test (Pha) (Accu-Chek) 1 ea Q1H XX Last administered on 08/26/16 09 :08; Admin Dose 1 EA; Start 08/25/16 at 05:00 Dextrose (D50w Syringe) 25 ml Q15M PRN IV Till BS 80 mg/dL or above x2; Start 08/25/16 at 05:00 Dextrose 50 ml 50 ml Q15M PRN IV Till BS 80 mg/dL or above x2; Start 08/25/16 at 05:00 Propofol 100 ml @ 3 mls/hr Q12H IV Last administered on 08/26/16 07:00; Admin Dose 3 MLS/HR; Start 08/25/16 at 05:00 Piperacillin Sod/ Tazobactam Sod 100 ml @ 200 mls/hr Q6 IVPB Last administered on 08/26/16 06:09; Admin Dose 200 MLS/HR; Start 08/25/16 at 06:00 Insulin Human Regular/Sodium Chloride (Novolin-R/NS) 100 ml @ 0 mls/hr Q0M IV Last administered on 08/25/16 08:00; Admin Dose 2 MLS/HR; Start 08/25/16 at 05: 03 Dextrose (D50w Syringe) 25 ml Q15M PRN IV Till BS 80 mg/dL or above x2; Start 08/25/16 at 05:30 Dextrose 50 ml 50 ml Q15M PRN IV Till BS 80 mg/dL or above x2; Start 08/25/16 at 05:30 Phenylephrine HCl/ Dextrose (Jorge-Syneph/D5W) 500 ml @ 75 mls/hr TITRATE IV Last administered on 08/25/16 18:21; Admin Dose 37.5 MLS/HR; Start 08/25/16 at 06:30 Pantoprazole (Protonix Iv) 40 mg BID IV Last administered on 08/26/16 08:39; Admin Dose 40 MG; Start 08/25/16 at 11:00 Morphine Sulfate 2 mg 2 mg Q3H PRN IV PAIN LEVEL 6-10 Last administered on 08/25 15:53; Admin Dose 2 MG; Start 08/25/16 at 11:00 Norepinephrine 16 mg/Dextrose 500 ml @ 1.87 mls/hr TITRATE IV Last administered on 08/26/16 09:12; Admin Dose 56.15 MLS/HR; Start 08/25/16 at 15: 00 Sodium Chloride 1,000 ml @ 75 mls/hr [id number] IV Last administered on 23:19; Admin Dose 75 MLS/HR; Start 08/25/16 at 18:00 Fentanyl 100 ml @ 2.5 mls/hr TITRATE IV Last administered on 08/25/16 18:54; Admin Dose 2.5 MLS/HR; Start 08/25/16 at 19:00 Midazolam HCl (Versed) 50 ml @ 1 mls/hr TITRATE IV Last administered on 06:55; Admin Dose 10 MLS/HR; Start 08/25/16 at 19:00 Acetaminophen (Tylenol Liquid) 650 mg Q4H PRN GTB PAIN AND OR ELEVATED TEMP Last administered on 08/25/16 20:19; Admin Dose 650 MG; Start 08/25/16 at 20:00 TUYET SCHWARTZ Aug 26, 2016 09:36
[2016-08-26] MEDS: FENTAnyl (DRIP) 1000 mcg/100mL 100 ML IV SCH ×2 (09:39→20:47)
--- NOTE | 2016-08-26 09:46 | RADRPT ---
PROCEDURE: XR Chest. CLINICAL INDICATION: Shortness of breath. TECHNIQUE: Single frontal view. COMPARISON: 08/25/2016. FINDINGS: The endotracheal tube should be advanced approximately 5 cm as the tip is at the level of the upper clavicle heads. The nasogastric tube tip is in the stomach. There is an intra-aortic balloon with the superior tip in the descending aorta, approximately 2 cm inferior to the upper aortic arch. Def ibrillator pads are noted overlying the left side of the chest. There is hazy opacification of the right hemithorax which is due to a combination of layering pleural fluid and pulmonary consolidation , slightly improved. The left lung is clear and there is no left pleural effusion. The heart size is normal. There is no pneumothorax. IMPRESSION: 1. The endotracheal tube should be advanced approximately 5 cm. 2. Intra-aortic balloon pump in satisfactory position. 3. Slightly improved aeration of the right lung. 4. No other new abnormality. Call report: A call report of the findings was made to the patient's nurse Ellen Amin on 7 at 0940 hours. RPTAT: QQ .Gabe Harris MD, MD Date Time Electronically viewed and signed by .Gabe Harris MD, MD on 08/26/2016 09:46 .R/
[2016-08-26] MEDS ORDERED: ASPIRIN 325 MG TAB PO ONE (11:00)
--- NOTE | 2016-08-26 13:51 | RADRPT ---
PROCEDURE: CHEST 1VW CLINICAL INDICATION: Shortness of breath TECHNIQUE: Single frontal view of the chest was obtained COMPARISON: 08/26/2016 FINDINGS: The endotracheal tube is seen with the tip 3.8 cm maia. Nasogastric tube courses into the stomach . Stable positioning of intra-aortic balloon pump. The cardiac size is normal. Aortic vascular calcifications are demonstrated. There is no pulmonary vascular congestion. Improved aeration seen of the right lung. Mild degenerative changes of the visualized osseous structures are visualized. IMPRESSION: 1. The endotracheal tube is seen with the tip 3.8 cm maia. 2. Improved aeration of the right lung. RPTAT:PP .Oswaldo Herndon MD, Date Time Electronically viewed and signed by .Oswaldo Herndon MD, on 08/26/2016 13:51 .V/
--- NOTE | 2016-08-26 16:19 | PN ---
Date/Time of Note Date/Time of Note DATE: 08/26/16 TIME: 16:14 Assessment/Plan VTE Prophylaxis VTE Prophylaxis Intervention: SCD's Lines/Catheters IV Catheter Type (from [facility]): A Line Assessment/Plan Chief Complaint/Hosp Course 1. Cardiac arrest, revived in ER after several rounds of CPR and multiple shocks - Revived. Found to have post arrest STEMI, taken directly to the laboratory apparatus glass blower 2. STEMI (ST elevation myocardial infarction) s/p Angioplasty -cont ASA 3. Cardiogenic Shock -cont IABP and pressor support 4. GIB-resolving 5. Acute Resp Failure -Pulm on case, cont vent support 6. Hyperglycemia-reactive -A1C is 5.1 PPx- SCD's Problems: Subjective 24 Hr Interval Summary Subjective hx not possible: pt non-verbal Exam/Review of Systems Vital Signs Vitals Vital Signs Date Time Temp Pulse Resp B/P Pulse Ox O2 Delivery O2 Flow Rate FiO2 08/26/16 15:15 96 16 104/53 100 08/26/16 15:00 Mechanical Ventilator 08/26/16 12:00 100.0 08/26/16 11:00 50 Intake and Output 08/25/16 08/25/16 08/26/16 15:00 23:00 07:00 Intake Total 1455.48 ml 1378.50 ml 1372.0 ml Output Total 435 ml 700 ml 535 ml Balance 1020.48 ml 678.50 ml 837.0 ml Exam Constitutional: non-verbal ENMT: intubated Respiratory: clear to auscultation Cardiovascular: regular rate and rhythm Gastrointestinal: soft, No distended Musculoskeletal: nl extremities to inspection Results Result Diagram: 08/26/160 08/26/16 0420 Results 24 hrs Laboratory Tests Test 08/25/16 17:57 08/25/16 20:14 08/25/16 22:19 08/26/16 00:08 Bedside Glucose 138 125 98 114 Test 08/26/16 02:13 08/26/16 04:18 08/26/16 04:20 08/26/16 06:08 Bedside Glucose 109 117 101 White Blood Count 26.7 #H Red Blood Count 4.10 #L Hemoglobin 12.6 #L Hematocrit 37.9 #L Mean Corpuscular Volume 92.4 Mean Corpuscular Hemoglobin 30.7 Mean Corpuscular Hemoglobin Concent 33.2 Red Cell Distribution Width 14.1 Platelet Count 144 # Mean Platelet Volume 10.1 Neutrophils % 70.9 Lymphocytes % 20.1 Monocytes % 8.0 Eosinophils % 0.3 Basophils % 0.2 Nucleated Red Blood Cells % 0.0 Neutrophils # 18.9 H Lymphocytes # 5.4 H Monocytes # 2.2 H Eosinophils # 0.1 Basophils # 0.1 Nucleated Red Blood Cells # 0.0 Prothrombin Time 16.0 #H Prothrombin Time Ratio 1.3 INR International Normalized Ratio 1.27 Activated Partial Thromboplast Time 32.0 Sodium Level 140 Potassium Level 3.3 L Chloride Level 113 H Carbon Dioxide Level 26 Anion Gap 4 #L Blood Urea Nitrogen 18 Creatinine 0.89 Glucose Level 123 # Hemoglobin A1c 5.1 Calcium Level 7.1 L Magnesium Level 1.8 Total Bilirubin 0.5 Direct Bilirubin 0.00 Indirect Bilirubin 0.5 Aspartate Amino Transf (AST/SGOT) 377 H Alanine Aminotransferase (ALT/SGPT) 187 H Alkaline Phosphatase 64 # Creatine Kinase Creatine Kinase Index Creatinine Kinase MB (Mass) 47.20 H Troponin I 41.600 *H B-Type Natriuretic Peptide 2250 H Total Protein 5.1 #L Albumin 2.5 #L Globulin 2.60 Albumin/Globulin Ratio 0.96 Triglycerides Level 408 H Cholesterol Level 154 # LDL Cholesterol, Calculated 51 HDL Cholesterol 21 L Cholesterol/HDL Ratio 7.3 Thyroid Stimulating Hormone (TSH) 0.983 Free Thyroxine 1.06 Test 08/26/16 08:25 08/26/16 09:06 08/26/16 11:16 08/26/16 12:55 Bedside Glucose 117 117 133 108 Test 08/26/16 15:17 Bedside Glucose 106 Medications Medications Current Medications Diagnostic Test (Pha) 1 ea 1 ea Q1H XX Last administered on 08/26/16 15:34; Admin Dose 1 EA; Start 08/25/16 at 05:00 Propofol 100 ml @ 3 mls/hr Q12H IV Last administered on 08/26/16 07:00; Admin Dose 3 MLS/HR; Start 08/25/16 at 05:00 Piperacillin Sod/ Tazobactam Sod 100 ml @ 200 mls/hr Q6 IVPB Last administered on 08/26/16 12:05; Admin Dose 200 MLS/HR; Start 08/25/16 at 06:00 Insulin Human Regular/Sodium Chloride (Novolin-R/NS) 100 ml @ 0 mls/hr Q0M IV Last administered on 08/25/16 08:00; Admin Dose 2 MLS/HR; Start 08/25/16 at 05: 03 Dextrose (D50w Syringe) 25 ml Q15M PRN IV Till BS 80 mg/dL or above x2; Start 08/25/16 at 05:30 Dextrose 50 ml 50 ml Q15M PRN IV Till BS 80 mg/dL or above x2; Start 08/25/16 at 05:30 Phenylephrine HCl/ Dextrose (Jorge-Syneph/D5W) 500 ml @ 75 mls/hr TITRATE IV Last administered on 08/25/16 18:21; Admin Dose 37.5 MLS/HR; Start 08/25/16 at 06:30 Pantoprazole (Protonix Iv) 40 mg BID IV Last administered on 08/26/16 08:39; Admin Dose 40 MG; Start 08/25/16 at 11:00 Morphine Sulfate 2 mg 2 mg Q3H PRN IV PAIN LEVEL 6-10 Last administered on 08/25 15:53; Admin Dose 2 MG; Start 08/25/16 at 11:00 Norepinephrine 16 mg/Dextrose 500 ml @ 1.87 mls/hr TITRATE IV Last administered on 08/26/16 09:12; Admin Dose 56.15 MLS/HR; Start 08/25/16 at 15: 00 Sodium Chloride 1,000 ml @ 75 mls/hr [id number] IV Last administered on 23:19; Admin Dose 75 MLS/HR; Start 08/25/16 at 18:00 Fentanyl 100 ml @ 2.5 mls/hr TITRATE IV Last administered on 08/26/16 09:39; Admin Dose 10 MLS/HR; Start 08/25/16 at 19:00 Midazolam HCl (Versed) 50 ml @ 1 mls/hr TITRATE IV Last administered on 06:55; Admin Dose 10 MLS/HR; Start 08/25/16 at 19:00 Acetaminophen (Tylenol Liquid) 650 mg Q4H PRN GTB PAIN AND OR ELEVATED TEMP Last administered on 08/25/16 20:19; Admin Dose 650 MG; Start 08/25/16 at 20:00 JAMEEL HERNANDEZ Apr 11, 2017 16:19
[2016-08-26] MEDS ORDERED: POTASSIUM CHLORIDE (SR) 20 MEQ TAB PO STA (16:42)
[2016-08-26] MEDS: ACETAMINOPHEN 650MG/20.3ML CUP GTB PRN (16:59)
[2016-08-26] MEDS ORDERED: MAGNESIUM SULFATE 1 GM/D5W 100 ML IVPB ONE (17:00)
[2016-08-26] MEDS ORDERED: GLUCOSE GEL 15 GRAM TUBE PO PRN ×2 (17:00)
[2016-08-26] MEDS ORDERED: MAGNESIUM SULFATE 3 GM in SOD CHLORIDE 0.9% 100 ML IVPB ONE (17:00)
[2016-08-26] MEDS ORDERED: POTASSIUM CHLORIDE 20 MEQ POWDER FOR ORAL SOLN NGT ONE (17:00)
[2016-08-26] MEDS ORDERED: GLUCOSE GEL 15 GRAM TUBE BUCCAL PRN (17:00)
[2016-08-26] MEDS ORDERED: GLUCAGON 1 MG INJ IM PRN (17:00)
[2016-08-26] MEDS ORDERED: DEXTROSE 50% 50 ML SYRINGE IV PRN ×2 (17:00)
--- NOTE | 2016-08-26 17:38 | PN ---
DATE: 08/26/2016 CARDIOLOGY FOLLOWUP SUBJECTIVE: Discussed with the staff and with multiple family members including brother, mother and ____. The patient remains intubated on the vent in the ICU on Levophed as well as ____. The patie nt required to be on Jorge-Synephrine and he has been titrated off. Blood pressures have been stable. He has remained in sinus rhythm. No more episodes of V-tach noted. Question of PVCs, though. Th e patient neurologically according to the staff gets agitated when awake, but is moving his extremit ies. MEDICATIONS: Reviewed. PHYSICAL EXAMINATION: VITAL SIGNS: Temperature 100, T-max 100.2, heart rate of 96, blood pressure 104/53, respiration rat e of 16, saturating 100%. HEENT: Normocephalic, atraumatic. Status post intubation on the vent. CARDIOVASCULAR: Regular rate and rhythm, systolic murmur. PULMONARY: With mild rhonchi. No wheezes. GASTROINTESTINAL: Soft, nontender. EXTREMITIES: With trivial lower extremity edema. NEUROLOGIC: Sedated. LABORATORY: WBC of 26.7, hemoglobin of 12.6, platelets of 144. Sodium 144, potassium 3.3, BUN of 1 8, creatinine 0.89, glucose of 123, ALT of 187, AST of 377. Albumin is 2.5. Cholesterol 154, LDL o f 51, HDL of 21. Chest x-ray was personally reviewed, shows improved aeration of the lungs. ASSESSMENT AND PLAN: 1. Acute anterolateral ST elevation myocardial infarction. 2. Cardiopulmonary arrest secondary to ventricular fibrillation arrest secondary to above. 3. Cardiogenic and possible recent septic shock. 4. ____Respiratory failure, status post intubation on the vent. 5. Probably severe sepsis and shock as well. 6. History of multiple coronary artery disease, status post percutaneous transluminal coronary vitaly oplasty of the left anterior descending and left circumflex artery. 6. Possible gastrointestinal bleed. RECOMMENDATIONS: 1. I will continue with the aspirin. 2. Potassium and magnesium will be replaced. Continue with Levophed and try to titrate off. Will discontinue the intraaortic balloon pump once the patient is hemodynamically more stable. Antibioti c will be continued and managed as per pulmonary. Vent support will be continued. Diabetic control insulin drip will be continued and adjusted and titrated as per internal medicine. Continue with t he ICU care. More than 40 minutes of critical care time was spent managing this patient, excluding any procedures . Dictated By: DENNIS DUBOSE/PEÑA Conf#: [id number] DID#: [id number]
[2016-08-26] MEDS: INSULIN ASPART [NOVOLOG] 3 ML PEN SC SCH ×2 (18:00→23:53)
--- NOTE | 2016-08-26 18:26 | RADRPT ---
Vent Rate: 100 bpm RR Interval: 0 msec HI Interval: 142 msec QRS Duration: 104 msec QT Interval: 388 msec QTC Interval: 500 msec P-R-T [place]: 51 - 38 - 67 degrees Normal sinus rhythm Nonspecific T wave abnormality Prolonged QT Abnormal ECG Electronically Signed By: Armando Haney [id number]
--- NOTE | 2016-08-26 18:30 | RADRPT ---
Vent Rate: 103 bpm RR Interval: 0 msec DC Interval: 136 msec QRS Duration: 82 msec QT Interval: 428 msec QTC Interval: 560 msec P-R-T [place]: 63 - 49 - 0 degrees Sinus tachycardia Anteroseptal infarct , age undetermined T wave abnormality, consider inferolateral ischemia Abnormal ECG Electronically Signed By: Armando Haney [id number]
[2016-08-26] MEDS: SOD CHLORIDE 0.9% 1,000 ML IV SCH ×2 (20:40→23:32)
[2016-08-26 22:08] LABS: POTASSIUM 4.3 mmol/L (3.5-5.1)
[2016-08-26 22:11] LABS: CREATININE 0.73 mg/dl (0.61-1.24)
[2016-08-26 22:12] LABS: CALCIUM 7.6 mg/dl (8.4-10.2); PHOSPHORUS 2.1 mg/dl (2.5-4.9)
[2016-08-26] MEDS ORDERED: SODIUM PHOSPHATE 15 MMOL in SOD CHLORIDE 0.9% 250 ML IVPB ONE (22:30)
[2016-08-27] VITALS (106 sets, daily range): BP systolic 74–136; BP diastolic 37–98; PULSE 75–107; RESP 16–23
[2016-08-27] MEDS: MIDAZOLAM (DRIP) 50 mg/50 mL 50 ML IV SCH ×5 (00:08→21:54)
[2016-08-27 04:52] LABS: ADD SCAN DIFF NO
[2016-08-27 05:00] LABS: BASOPHIL # 0.1 10^3/ul (0.0-0.1); BASOPHILS % 0.4 % (0.0-2.0); EOSINOPHILS # 0.6 10^3/ul (0.0-0.5); EOSINOPHILS % 2.9 % (0.0-7.0); HEMATOCRIT 33.6 % (42.0-52.0); HEMOGLOBIN 10.6 g/dl (14.0-18.0); LYMPHOCYTES # 3.4 10^3/ul (0.8-2.9); MEAN CORPUSCULAR HEMOGLOBIN 30.1 pg (29.0-33.0); MEAN CORPUSCULAR HGB CONC 31.5 g/dl (32.0-37.0); MEAN CORPUSCULAR VOLUME 95.5 fl (82.0-101.0); MEAN PLATELET VOLUME 10.3 fl (7.4-10.4); MONOCYTE # 1.5 10^3/ul (0.3-0.9); MONOCYTES % 6.9 % (0.0-11.0); NEUTROPHIL # 15.5 10^3/ul (1.6-7.5); NEUTROPHILS % 73.2 % (39.0-77.0); PLATELET COUNT 103 10^3/UL (140-415); RED BLOOD COUNT 3.52 10^6/ul (4.70-6.10); RED CELL DISTRIBUTION WIDTH 14.6 % (11.5-14.5)
[2016-08-27] MEDS: PROPOFOL 100 ML IV SCH ×2 (05:00→16:22)
[2016-08-27 05:28] LABS: ALBUMIN 2.2 g/dl (3.3-4.9)
[2016-08-27] MEDS: PIPER-TAZO 3.375 GM IV (PMX) 100 ML IVPB SCH ×4 (05:28→23:33)
[2016-08-27 05:29] LABS: POTASSIUM 4.1 mmol/L (3.5-5.1)
[2016-08-27 05:31] LABS: BILIRUBIN,INDIRECT 0.8 mg/dl (0-1.1); BILIRUBIN,TOTAL 0.8 mg/dl (0.2-1.3); CREATININE 0.77 mg/dl (0.61-1.24); TOTAL PROTEIN 4.4 g/dl (6.1-8.1)
[2016-08-27 05:32] LABS: CALCIUM 7.6 mg/dl (8.4-10.2)
[2016-08-27 05:35] LABS: WHITE BLOOD COUNT 21.2 10^3/ul (4.8-10.8)
[2016-08-27] MEDS: INSULIN ASPART [NOVOLOG] 3 ML PEN SC SCH ×4 (05:38→23:41)
[2016-08-27 05:40] LABS: CK-MB 7.99 ng/ml (0.0-2.4); TROPONIN-I 15.9 ng/ml (0.00-0.12)
[2016-08-27 06:55] LABS: MAGNESIUM 1.9 mg/dl (1.7-2.5); PHOSPHORUS 2.7 mg/dl (2.5-4.9)
[2016-08-27] MEDS: FENTAnyl (DRIP) 1000 mcg/100mL 100 ML IV SCH ×3 (07:37→21:55)
[2016-08-27] MEDS: ASPIRIN 81 MG TAB PO SCH (08:34)
[2016-08-27] MEDS: PANTOPRAZOLE 40 MG INJ IV SCH ×2 (08:34→20:54)
[2016-08-27] MEDS: SOD CHLORIDE 0.9% 1,000 ML IV SCH ×2 (08:35→23:33)
--- NOTE | 2016-08-27 08:40 | RADRPT ---
PROCEDURE: XR Chest. CLINICAL INDICATION: CHF TECHNIQUE: A single AP view of the chest was obtained. COMPARISON: Chest x-ray dated 08/26/2016 FINDINGS: The endotracheal tube tip is approximately 4.9 cm above the maia. The tip of the enteric tube ex tends below the left diaphragm. There is a left subclavian central venous catheter with tip near the junction of the left brachiocephalic vein and SVC. There is intra-aortic balloon pump with radiopa que marker in the descending aortic arch, partially 5 cm distal to the aortic knob.. There is a small to moderate right pleural effusion with layering component posteriorly. No focal a irspace opacification or pneumothorax is seen. The cardiomediastinal silhouette is within normal li mits for size. The osseous structures are unremarkable. IMPRESSION: 1. Small to moderate right pleural effusion, mildly increased when compared to the prior examinatio n. 2. Tubes and lines, as described above. RPTAT: .Gracy Duenas MD, MD Date Time Electronically viewed and signed by .Gracy Duenas MD, MD on 08/27/2016 08:40 .G/
[2016-08-27] MEDS: ACETAMINOPHEN 650MG/20.3ML CUP GTB PRN (11:52)
--- NOTE | 2016-08-27 11:59 | CONS ---
Date/Time of Note Date/Time of Note DATE: 08/27/16 TIME: 11:56 Assessment/Plan Assessment/Plan Additional Assessment/Plan Chest x-ray was reviewed from today which is showing endotracheal tube at an adequate level. There is very minimal haziness involving the right lung. Possibly from underlying small pleural effusion. Ventilator settings; AC of 16, tidal volume 600, PEEP of 5, 40% FiO2. Patient currently on Levophed at 19 mics per minute, fentanyl 800 mics per hour. Patient is off phenylephrine drip. Assessment recommendations; 1. Patient admitted with cardiac arrest status post hypothermia protocol and acute coronary intervention. 2. Cardiomyopathy. 3. Persistent hypotension. 4. Preserved renal function. 5. Leukocytosis likely a stress response. Patient however maintained on Zosyn. As it s very difficult to rule out any element of aspiration pneumonia. Continue current supportive care. I did have a very detailed discussion the patient's brother at bedside. Patient's balloon pump likely will be removed either today or tomorrow morning. Weaning from ventilator will depend upon adequate recovery of hemodynamics off pressor support. Prognosis is guarded. Consultation Date/Type/Reason Admit Date/Time Aug 25, 2016 at 04:41 Initial Consult Date 08/25/16 Type of Consultation: Pulmonary/critical care 24 HR Interval Summary Free Text/Dictation Patient condition remains critical. Still requiring full ventilator support as well as intra-aortic balloon pump at one-to-one augmentation. Still requiring high-dose Levophed for blood pressure maintenance. General exam; young male, orally intubated, sedated. Currently in no distress. Exam/Review of Systems Vital Signs Vitals Vital Signs Date Time Temp Pulse Resp B/P Pulse Ox O2 Delivery O2 Flow Rate FiO2 08/27/16 10:55 87 16 99 40 08/27/16 10:30 124/57 Mechanical Ventilator 08/27/16 08:00 100.0 Intake and Output 08/26/16 08/26/16 08/27/16 15:00 23:00 07:00 Intake Total 1535.40 ml 1050.21 ml 1616.10 ml Output Total 450 ml 445 ml 400 ml Balance 1085.40 ml 605.21 ml 1216.10 ml Exam HEENT exam; supple neck, positive JVD. No lymphadenopathy. Midline trachea. Orally intubated. Patient has fair dentition. Pupils are pinpoint bilaterally. No neck masses. No thyromegaly. Chest examination; clear to auscultation bilaterally. No added sound. S1-S2 audible, no murmurs. Regular rhythm. Abdomen examination; soft, protuberant. Bowel sounds audible. No organomegaly. Extremity exam; no peripheral edema. Pulses 2+ bilaterally. No clubbing. MINERAL MIXER examination; patient is sedated. Results Result Diagram: 08/27/16 0412 08/27/16 0412 Results 24 hrs Laboratory Tests Test 08/26/16 12:55 08/26/16 15:17 08/26/16 16:08 08/26/16 18:12 Bedside Glucose 108 106 108 123 Test 08/26/16 21:50 08/26/16 23:45 08/27/16 04:12 08/27/16 05:35 Sodium Level 138 140 Potassium Level 4.3 4.1 Chloride Level 111 H 112 H Carbon Dioxide Level 23 24 Anion Gap 8 8 Blood Urea Nitrogen 10 10 Creatinine 0.73 0.77 Glucose Level 126 108 Calcium Level 7.6 L 7.6 L Phosphorus Level 2.1 #L 2.7 Magnesium Level 2.2 1.9 Bedside Glucose 123 107 White Blood Count 21.2 #H Red Blood Count 3.52 L Hemoglobin 10.6 L Hematocrit 33.6 L Mean Corpuscular Volume 95.5 Mean Corpuscular Hemoglobin 30.1 Mean Corpuscular Hemoglobin Concent 31.5 L Red Cell Distribution Width 14.6 H Platelet Count 103 #L Mean Platelet Volume 10.3 Neutrophils % 73.2 Lymphocytes % 16.0 Monocytes % 6.9 Eosinophils % 2.9 Basophils % 0.4 Nucleated Red Blood Cells % 0.0 Neutrophils # 15.5 H Lymphocytes # 3.4 H Monocytes # 1.5 H Eosinophils # 0.6 H Basophils # 0.1 Nucleated Red Blood Cells # 0.0 Total Bilirubin 0.8 Direct Bilirubin 0.00 Indirect Bilirubin 0.8 Aspartate Amino Transf (AST/SGOT) 204 H Alanine Aminotransferase (ALT/SGPT) 122 H Alkaline Phosphatase 73 Creatine Kinase 3080 #H Creatine Kinase Index 0.3 Creatinine Kinase MB (Mass) 7.99 H Troponin I 15.900 *H B-Type Natriuretic Peptide 1110 H Total Protein 4.4 L Albumin 2.2 L Globulin 2.20 Albumin/Globulin Ratio 1.00 Test 08/27/16 11:49 Bedside Glucose 114 Medications Medications Current Medications Propofol 100 ml @ 3 mls/hr Q12H IV Last administered on 08/26/16 07:00; Admin Dose 3 MLS/HR; Start 08/25/16 at 05:00 Piperacillin Sod/ Tazobactam Sod 100 ml @ 200 mls/hr Q6 IVPB Last administered on 08/27/16 11:53; Admin Dose 200 MLS/HR; Start 08/25/16 at 06:00 Phenylephrine HCl/ Dextrose (Jorge-Syneph/D5W) 500 ml @ 75 mls/hr TITRATE IV Last administered on 08/25/16 18:21; Admin Dose 37.5 MLS/HR; Start 08/25/16 at 06:30 Pantoprazole (Protonix Iv) 40 mg BID IV Last administered on 08/27/16 08:34; Admin Dose 40 MG; Start 08/25/16 at 11:00 Morphine Sulfate 2 mg 2 mg Q3H PRN IV PAIN LEVEL 6-10 Last administered on 08/25 15:53; Admin Dose 2 MG; Start 08/25/16 at 11:00 Norepinephrine 16 mg/Dextrose 500 ml @ 1.87 mls/hr TITRATE IV Last administered on 08/27/16 05:27; Admin Dose 37.5 MLS/HR; Start 08/25/16 at 15:00 Sodium Chloride 1,000 ml @ 75 mls/hr [id number] IV Last administered on 08:35; Admin Dose 75 MLS/HR; Start 08/25/16 at 18:00 Fentanyl 100 ml @ 2.5 mls/hr TITRATE IV Last administered on 08/27/16 07:37; Admin Dose 9 MLS/HR; Start 08/25/16 at 19:00 Midazolam HCl (Versed) 50 ml @ 1 mls/hr TITRATE IV Last administered on 11:12; Admin Dose 10 MLS/HR; Start 08/25/16 at 19:00 Acetaminophen (Tylenol Liquid) 650 mg Q4H PRN GTB PAIN AND OR ELEVATED TEMP Last administered on 08/27/16 11:52; Admin Dose 650 MG; Start 08/25/16 at 20:00 Aspirin (Aspirin) 81 mg DAILY PO Last administered on 4/12/17at 08:34; Admin Dose 81 MG; Start 08/27/16 at 09:00 Insulin Aspart (Novolog Insulin Pen) NOVOLOG *MILD* ALGORI... Q6 SC ; Start 04/03 at 18:00 Miscellaneous Information 1 ea NOTE XX ; Start 08/26/16 at 17:00 Glucose (Glutose) 15 gm Q15M PRN PO DECREASED GLUCOSE; Start 08/26/16 at 17:00 Glucose (Glutose) 22.5 gm Q15M PRN PO DECREASED GLUCOSE; Start 08/26/16 at 17: 00 Dextrose (D50w Syringe) 25 ml Q15M PRN IV DECREASED GLUCOSE; Start 08/26/16 at 17:00 Dextrose (D50w Syringe) 50 ml Q15M PRN IV DECREASED GLUCOSE; Start 08/26/16 at 17:00 Glucagon (Glucagen) 1 mg Q15M PRN IM DECREASED GLUCOSE; Start 08/26/16 at 17:00 Glucose (Glutose) 15 gm Q15M PRN BUCCAL DECREASED GLUCOSE; Start 08/26/16 at 17 :00 TUYET SCHWARTZ Aug 27, 2016 11:59
--- NOTE | 2016-08-27 13:19 | PN ---
Date/Time of Note Date/Time of Note DATE: 08/27/16 TIME: 13:19 Assessment/Plan VTE Prophylaxis VTE Prophylaxis Intervention: SCD's Lines/Catheters IV Catheter Type (from [facility]): A Line Assessment/Plan Chief Complaint/Hosp Course 1. Cardiac arrest, revived in ER after several rounds of CPR and multiple shocks - Revived. Found to have post arrest STEMI, taken directly to the labourers 2. STEMI (ST elevation myocardial infarction) s/p Angioplasty -cont ASA 3. Cardiogenic Shock -cont IABP and pressor support 4. GIB-resolving 5. Acute Resp Failure -Pulm on case, cont vent support 6. Hyperglycemia-reactive -A1C is 5.1 -Now off Insulin gtt PPx- SCD's Problems: Subjective 24 Hr Interval Summary Subjective hx not possible: pt non-verbal Exam/Review of Systems Vital Signs Vitals Vital Signs Date Time Temp Pulse Resp B/P Pulse Ox O2 Delivery O2 Flow Rate FiO2 08/27/16 12:45 86 16 111/50 100 Mechanical Ventilator 08/27/16 11:45 100.8 08/27/16 10:55 40 Intake and Output 08/26/16 08/26/16 08/27/16 15:00 23:00 07:00 Intake Total 1535.40 ml 1050.21 ml 1616.10 ml Output Total 450 ml 445 ml 400 ml Balance 1085.40 ml 605.21 ml 1216.10 ml Exam Constitutional: non-verbal Respiratory: clear to auscultation Cardiovascular: regular rate and rhythm Gastrointestinal: soft, No distended Musculoskeletal: nl extremities to inspection Results Result Diagram: 08/27/16 0412 08/27/16 0412 Results 24 hrs Laboratory Tests Test 08/26/16 15:17 08/26/16 16:08 08/26/16 18:12 08/26/16 21:50 Bedside Glucose 106 108 123 Sodium Level 138 Potassium Level 4.3 Chloride Level 111 H Carbon Dioxide Level 23 Anion Gap 8 Blood Urea Nitrogen 10 Creatinine 0.73 Glucose Level 126 Calcium Level 7.6 L Phosphorus Level 2.1 #L Magnesium Level 2.2 Test 08/26/16 23:45 08/27/16 04:12 08/27/16 05:35 08/27/16 11:49 Bedside Glucose 123 107 114 White Blood Count 21.2 #H Red Blood Count 3.52 L Hemoglobin 10.6 L Hematocrit 33.6 L Mean Corpuscular Volume 95.5 Mean Corpuscular Hemoglobin 30.1 Mean Corpuscular Hemoglobin Concent 31.5 L Red Cell Distribution Width 14.6 H Platelet Count 103 #L Mean Platelet Volume 10.3 Neutrophils % 73.2 Lymphocytes % 16.0 Monocytes % 6.9 Eosinophils % 2.9 Basophils % 0.4 Nucleated Red Blood Cells % 0.0 Neutrophils # 15.5 H Lymphocytes # 3.4 H Monocytes # 1.5 H Eosinophils # 0.6 H Basophils # 0.1 Nucleated Red Blood Cells # 0.0 Sodium Level 140 Potassium Level 4.1 Chloride Level 112 H Carbon Dioxide Level 24 Anion Gap 8 Blood Urea Nitrogen 10 Creatinine 0.77 Glucose Level 108 Calcium Level 7.6 L Phosphorus Level 2.7 Magnesium Level 1.9 Total Bilirubin 0.8 Direct Bilirubin 0.00 Indirect Bilirubin 0.8 Aspartate Amino Transf (AST/SGOT) 204 H Alanine Aminotransferase (ALT/SGPT) 122 H Alkaline Phosphatase 73 Creatine Kinase 3080 #H Creatine Kinase Index 0.3 Creatinine Kinase MB (Mass) 7.99 H Troponin I 15.900 *H B-Type Natriuretic Peptide 1110 H Total Protein 4.4 L Albumin 2.2 L Globulin 2.20 Albumin/Globulin Ratio 1.00 Medications Medications Current Medications Propofol 100 ml @ 3 mls/hr Q12H IV Last administered on 08/26/16 07:00; Admin Dose 3 MLS/HR; Start 08/25/16 at 05:00 Piperacillin Sod/ Tazobactam Sod 100 ml @ 200 mls/hr Q6 IVPB Last administered on 08/27/16 11:53; Admin Dose 200 MLS/HR; Start 08/25/16 at 06:00 Phenylephrine HCl/ Dextrose (Jorge-Syneph/D5W) 500 ml @ 75 mls/hr TITRATE IV Last administered on 08/25/16 18:21; Admin Dose 37.5 MLS/HR; Start 08/25/16 at 06:30 Pantoprazole (Protonix Iv) 40 mg BID IV Last administered on 08/27/16 08:34; Admin Dose 40 MG; Start 08/25/16 at 11:00 Morphine Sulfate 2 mg 2 mg Q3H PRN IV PAIN LEVEL 6-10 Last administered on 08/25 15:53; Admin Dose 2 MG; Start 08/25/16 at 11:00 Norepinephrine 16 mg/Dextrose 500 ml @ 1.87 mls/hr TITRATE IV Last administered on 08/27/16 05:27; Admin Dose 37.5 MLS/HR; Start 08/25/16 at 15:00 Sodium Chloride 1,000 ml @ 75 mls/hr [id number] IV Last administered on 08:35; Admin Dose 75 MLS/HR; Start 08/25/16 at 18:00 Fentanyl 100 ml @ 2.5 mls/hr TITRATE IV Last administered on 08/27/16 07:37; Admin Dose 9 MLS/HR; Start 08/25/16 at 19:00 Midazolam HCl (Versed) 50 ml @ 1 mls/hr TITRATE IV Last administered on 11:12; Admin Dose 10 MLS/HR; Start 08/25/16 at 19:00 Acetaminophen (Tylenol Liquid) 650 mg Q4H PRN GTB PAIN AND OR ELEVATED TEMP Last administered on 08/27/16 11:52; Admin Dose 650 MG; Start 08/25/16 at 20:00 Aspirin (Aspirin) 81 mg DAILY PO Last administered on 08/27/16 08:34; Admin Dose 81 MG; Start 08/27/16 at 09:00 Insulin Aspart (Novolog Insulin Pen) NOVOLOG *MILD* ALGORI... Q6 SC ; Start 04/03 at 18:00 Miscellaneous Information 1 ea NOTE XX ; Start 08/26/16 at 17:00 Glucose (Glutose) 15 gm Q15M PRN PO DECREASED GLUCOSE; Start 08/26/16 at 17:00 Glucose (Glutose) 22.5 gm Q15M PRN PO DECREASED GLUCOSE; Start 08/26/16 at 17: 00 Dextrose (D50w Syringe) 25 ml Q15M PRN IV DECREASED GLUCOSE; Start 08/26/16 at 17:00 Dextrose (D50w Syringe) 50 ml Q15M PRN IV DECREASED GLUCOSE; Start 08/26/16 at 17:00 Glucagon (Glucagen) 1 mg Q15M PRN IM DECREASED GLUCOSE; Start 08/26/16 at 17:00 Glucose (Glutose) 15 gm Q15M PRN BUCCAL DECREASED GLUCOSE; Start 08/26/16 at 17 :00 JAMEEL HERNANDEZ Aug 27, 2016 13:19
--- NOTE | 2016-08-27 19:48 | PN ---
DATE: 08/27/2016 SUBJECTIVE: Discussed with the staff, with multiple family members including brothers and mother at the bedside. He remains intubated on the vent, Levophed drip, remains on the balloon pump. Jorge-Sy nephrine drip. Intra-aortic balloon intermittently has been "damping" pressures. The patient curre ntly sedated. MEDICATIONS: Reviewed. PHYSICAL EXAMINATION: VITAL SIGNS: Temperature 99.4. T-max is 100.8. Yesterday, temperature was as high as 102. Heart rate of 83, blood pressure 104/90s reported. Respiratory rate 18. HEENT: Normocephalic, atraumatic. Intubated, on the vent. Eyes: Pupils are constricted. CARDIOVASCULAR: Regular rate and rhythm. Systolic murmur. PULMONARY: Anteriorly with no wheezes, mild rhonchi. GASTROINTESTINAL: Soft, nontender. EXTREMITIES: No significant edema. NEUROLOGIC: Sedated. LABORATORY: Sodium 140, potassium is 4.1, BUN of 10, creatinine of 0.77, glucose of 108, AST of 24, ALT of 122. ProBNP 1110. Albumin is 2.2. Chest x-ray was personally reviewed, shows pleural effusion on the right side. ASSESSMENT AND PLAN: 1. Cardiopulmonary arrest secondary to ventricular fibrillation arrest. 2. ST-elevation myocardial infarction, anterolateral. 3. Status post emergent percutaneous transluminal coronary angioplasty of left anterior descending and left circumflex artery. 4. Cardiogenic shock. 5. Possible sepsis. 6. ____ pneumonia associated with ischemic cardiomyopathy. 7. Congestive heart failure. 8. Hyperglycemia. 9. Possible gastrointestinal bleed. RECOMMENDATIONS: Will continue with the aspirin. Will add Plavix if there is no other sign of blee ding noted. Will continue on the Levophed. Will remove the intra-aortic balloon pump given his fev er now, concerned about infection as well as since it appeared to be damping as well. Continue the ICU care. Continue vent support. More than ____ minutes of critical care time was spent in management of this patient excluding any p rocedures. Dictated By: DENNIS THORNE MD AV/NTS Conf#: [id number] DID#: [id number] CC: JAMEEL HERNANDEZ MD;*End*
--- NOTE | 2016-08-27 21:35 | SP ---
DATE OF PROCEDURE: 08/27/2016 PROCEDURE: Intraaortic balloon pump removal. DESCRIPTION OF PROCEDURE: The patient had the balloon pump in place. He was placed in standby reji emely and the sheath was kept in place which was an 8-Macedonian sheath. No complications. Dictated By: DENNIS THORNE MD AV/PEÑA Conf#: [id number] DID#: [id number] CC: JAMEEL HERNANDEZ MD;*EndCC*
[2016-08-28] VITALS (104 sets, daily range): BP systolic 80–125; BP diastolic 45–92; PULSE 83–108; RESP 16–20
[2016-08-28 00:06] LABS: MAGNESIUM 1.6 mg/dl (1.7-2.5); POTASSIUM 3.8 mmol/L (3.5-5.1)
[2016-08-28] MEDS ORDERED: MAGNESIUM SULFATE (GM) 50% 2 ML INJ IVPB ONE (01:00)
[2016-08-28] MEDS ORDERED: MAGNESIUM SULFATE 3 GM in SOD CHLORIDE 0.9% 100 ML IVPB ONE (01:00)
[2016-08-28] MEDS: MIDAZOLAM (DRIP) 50 mg/50 mL 50 ML IV SCH ×2 (03:18→09:56)
[2016-08-28] MEDS: POTASSIUM CHLORIDE 50 ML IVPB PRN ×3 (03:57→23:53)
[2016-08-28 04:40] LABS: ADD SCAN DIFF NO
[2016-08-28 04:52] LABS: ABNORMAL IP MESSAGE 1; BASOPHIL # 0.1 10^3/ul (0.0-0.1); BASOPHILS % 0.3 % (0.0-2.0); EOSINOPHILS # 0.8 10^3/ul (0.0-0.5); EOSINOPHILS % 4.5 % (0.0-7.0); HEMATOCRIT 31.6 % (42.0-52.0); HEMOGLOBIN 9.9 g/dl (14.0-18.0); LYMPHOCYTES # 3.1 10^3/ul (0.8-2.9); LYMPHOCYTES % 18.4 % (15.0-51.0); MEAN CORPUSCULAR HEMOGLOBIN 29.8 pg (29.0-33.0); MEAN CORPUSCULAR HGB CONC 31.3 g/dl (32.0-37.0); MEAN CORPUSCULAR VOLUME 95.2 fl (82.0-101.0); MEAN PLATELET VOLUME 10.4 fl (7.4-10.4); MONOCYTE # 1.2 10^3/ul (0.3-0.9); MONOCYTES % 7.1 % (0.0-11.0); NEUTROPHIL # 11.7 10^3/ul (1.6-7.5); PLATELET COUNT 98 10^3/UL (140-415); POTASSIUM 3.9 mmol/L (3.5-5.1); RED BLOOD COUNT 3.32 10^6/ul (4.70-6.10); RED CELL DISTRIBUTION WIDTH 14.1 % (11.5-14.5)
[2016-08-28 04:55] LABS: CREATININE 0.78 mg/dl (0.61-1.24)
[2016-08-28 04:56] LABS: CALCIUM 7.5 mg/dl (8.4-10.2)
[2016-08-28] MEDS: PROPOFOL 100 ML IV SCH ×2 (05:00→17:00)
[2016-08-28] MEDS: PIPER-TAZO 3.375 GM IV (PMX) 100 ML IVPB SCH ×4 (05:45→23:52)
[2016-08-28] MEDS: INSULIN ASPART [NOVOLOG] 3 ML PEN SC SCH ×4 (06:00→23:55)
[2016-08-28] MEDS: FENTAnyl (DRIP) 1000 mcg/100mL 100 ML IV SCH (07:32)
[2016-08-28] MEDS ORDERED: POTASSIUM CHLORIDE 50 ML IVPB ONE (09:00)
[2016-08-28] MEDS: PANTOPRAZOLE 40 MG INJ IV SCH ×2 (09:17→20:38)
[2016-08-28] MEDS: ASPIRIN 81 MG TAB PO SCH (09:17)
[2016-08-28] MEDS: CLOPIDOGREL 75 MG TAB NGT SCH (09:18)
--- NOTE | 2016-08-28 09:34 | CONS ---
Date/Time of Note Date/Time of Note DATE: 08/28/16 TIME: 09:31 Assessment/Plan Assessment/Plan Additional Assessment/Plan Ventilator settings; AC of 16, tidal volume 600, PEEP of 5, 30% FiO2. Patient currently on Levophed at 8 mics per minute, fentanyl drip 100 mics per hour, Versed 8 mg/h. Assessment recommendations; 1. Patient admitted with acute SD and cardiac arrest post emergent angioplasty. 2. Mild leukocytosis, possibly some element of aspiration pneumonia. Patient currently on appropriate antibiotic regimen. 3. Possibly some element of anoxic brain injury. 4. Mild thrombocytopenia. Continue supportive care for now. Hold further sedation vacations. Patient will be given another sedation vacation 24 hours for assessing him for possible weaning from ventilator. Obtain follow-up chest x-ray. I did have a very detailed discussion the patient's brother at bedside and answered all his questions. Weaning from ventilator will depend upon adequate mental status recovery. Consultation Date/Type/Reason Admit Date/Time Aug 25, 2016 at 04:41 Initial Consult Date 08/25/16 Type of Consultation: Pulmonary/critical care 24 HR Interval Summary Free Text/Dictation Patient condition remains critical. However he is improving hemodynamically. Patient was given a sedation vacation earlier this morning, he became quite agitated and had to be re-sedated. General exam; young male, orally intubated, sedated. Currently in no distress. Exam/Review of Systems Vital Signs Vitals Vital Signs Date Time Temp Pulse Resp B/P Pulse Ox O2 Delivery O2 Flow Rate FiO2 08/28/16 08:30 89 17 107/66 100 08/28/16 08:00 100.1 Mechanical Ventilator 08/28/16 05:34 28 Intake and Output 08/27/16 08/27/16 08/28/16 15:00 23:00 07:00 Intake Total 1069.00 ml 1074.42 ml 1321 ml Output Total 385 ml 420 ml 510 ml Balance 684.00 ml 654.42 ml 811 ml Exam HEENT examination; supple neck, no JVD. No lymphadenopathy. Midline trachea. No thyromegaly. Pupils are pinpoint . Orally intubated. No neck masses. Chest exam is; clear to auscultation. S1-S2 audible, no murmurs. Regular rhythm. Abdomen examination; soft, nondistended. No organomegaly. Bowel sounds audible. Extremity exam; no peripheral edema. Pulses 1+ bilaterally. DIAL BRUSHER examination; patient is sedated. Results Result Diagram: 08/28/16 0428 08/28/16 0428 Results 24 hrs Laboratory Tests Test 08/27/16 11:49 08/27/16 17:58 08/27/16 23:30 08/27/16 23:38 Bedside Glucose 114 96 89 Potassium Level 3.8 Magnesium Level 1.6 L Test 08/28/16 04:28 08/28/16 06:21 White Blood Count 17.0 H Red Blood Count 3.32 L Hemoglobin 9.9 L Hematocrit 31.6 L Mean Corpuscular Volume 95.2 Mean Corpuscular Hemoglobin 29.8 Mean Corpuscular Hemoglobin Concent 31.3 L Red Cell Distribution Width 14.1 Platelet Count 98 L Mean Platelet Volume 10.4 Neutrophils % 69.0 Lymphocytes % 18.4 Monocytes % 7.1 Eosinophils % 4.5 Basophils % 0.3 Nucleated Red Blood Cells % 0.0 Neutrophils # 11.7 H Lymphocytes # 3.1 H Monocytes # 1.2 H Eosinophils # 0.8 H Basophils # 0.1 Nucleated Red Blood Cells # 0.0 Sodium Level 140 Potassium Level 3.9 Chloride Level 110 Carbon Dioxide Level 25 Anion Gap 9 Blood Urea Nitrogen 8 Creatinine 0.78 Glucose Level 95 Calcium Level 7.5 L Magnesium Level 2.3 Bedside Glucose 89 Medications Medications Current Medications Propofol 100 ml @ 3 mls/hr Q12H IV Last administered on 08/26/16 07:00; Admin Dose 3 MLS/HR; Start 08/25/16 at 05:00 Piperacillin Sod/ Tazobactam Sod 100 ml @ 200 mls/hr Q6 IVPB Last administered on 08/28/16 05:45; Admin Dose 200 MLS/HR; Start 08/25/16 at 06:00 Phenylephrine HCl/ Dextrose (Jorge-Syneph/D5W) 500 ml @ 75 mls/hr TITRATE IV Last administered on 08/25/16 18:21; Admin Dose 37.5 MLS/HR; Start 08/25/16 at 06:30 Pantoprazole (Protonix Iv) 40 mg BID IV Last administered on 08/28/16 09:17; Admin Dose 40 MG; Start 08/25/16 at 11:00 Morphine Sulfate 2 mg 2 mg Q3H PRN IV PAIN LEVEL 6-10 Last administered on 08/25 15:53; Admin Dose 2 MG; Start 08/25/16 at 11:00 Norepinephrine 16 mg/Dextrose 500 ml @ 1.87 mls/hr TITRATE IV Last administered on 08/27/16 19:40; Admin Dose 20 MLS/HR; Start 08/25/16 at 15:00 Sodium Chloride 1,000 ml @ 75 mls/hr [id number] IV Last administered on 23:33; Admin Dose 75 MLS/HR; Start 08/25/16 at 18:00 Fentanyl 100 ml @ 2.5 mls/hr TITRATE IV Last administered on 08/28/16 07:32; Admin Dose 10 MLS/HR; Start 08/25/16 at 19:00 Midazolam HCl (Versed) 50 ml @ 1 mls/hr TITRATE IV Last administered on 03:18; Admin Dose 10 MLS/HR; Start 08/25/16 at 19:00 Acetaminophen (Tylenol Liquid) 650 mg Q4H PRN GTB PAIN AND OR ELEVATED TEMP Last administered on 08/27/16 11:52; Admin Dose 650 MG; Start 08/25/16 at 20:00 Aspirin (Aspirin) 81 mg DAILY PO Last administered on 08/28/16 09:17; Admin Dose 81 MG; Start 08/27/16 at 09:00 Insulin Aspart (Novolog Insulin Pen) NOVOLOG *MILD* ALGORI... Q6 SC ; Start 04/03 at 18:00 Miscellaneous Information 1 ea NOTE XX ; Start 08/26/16 at 17:00 Glucose (Glutose) 15 gm Q15M PRN PO DECREASED GLUCOSE; Start 08/26/16 at 17:00 Glucose (Glutose) 22.5 gm Q15M PRN PO DECREASED GLUCOSE; Start 08/26/16 at 17: 00 Dextrose (D50w Syringe) 25 ml Q15M PRN IV DECREASED GLUCOSE; Start 08/26/16 at 17:00 Dextrose (D50w Syringe) 50 ml Q15M PRN IV DECREASED GLUCOSE; Start 08/26/16 at 17:00 Glucagon (Glucagen) 1 mg Q15M PRN IM DECREASED GLUCOSE; Start 08/26/16 at 17:00 Glucose (Glutose) 15 gm Q15M PRN BUCCAL DECREASED GLUCOSE; Start 08/26/16 at 17 :00 Clopidogrel Bisulfate (plaVIX) 75 mg DAILY NGT Last administered on 08/28/16t 09:18; Admin Dose 75 MG; Start 08/28/16 at 09:00 Atorvastatin Calcium 20 mg 20 mg HS NGT ; Start 08/28/16 at 21:00 Potassium Chloride (KCl 20 MEQ/50 ML SW) 50 ml @ 25 mls/hr ONCE ONCE IVPB ; Start 08/28/16 at 09:00; Stop 08/28/16 at 10:59 TUYET SCHWARTZ Aug 28, 2016 09:34
[2016-08-28] MEDS: SOD CHLORIDE 0.9% 1,000 ML IV SCH (14:48)
--- NOTE | 2016-08-28 17:52 | PN ---
Date/Time of Note Date/Time of Note DATE: 08/28/16 TIME: 17:50 Assessment/Plan VTE Prophylaxis VTE Prophylaxis Intervention: SCD's Assessment/Plan Chief Complaint/Hosp Course 1. Cardiac arrest, revived in ER after several rounds of CPR and multiple shocks - Revived. Found to have post arrest STEMI, taken directly to the systems testing laboratory technician 2. STEMI (ST elevation myocardial infarction) s/p Angioplasty -cont ASA 3. Cardiogenic Shock -Status post IABP -Continue to wean off pressor support 4. GIB-resolved 5. Acute Resp Failure -Pulm on case, cont vent support 6. Hyperglycemia-reactive -A1C is 5.1 -Now off Insulin gtt 7. Anoxic encephalopathy Follow-up on EEG PPx- SCD's Problems: Subjective 24 Hr Interval Summary Subjective hx not possible: pt non-verbal Exam/Review of Systems Vital Signs Vitals Vital Signs Date Time Temp Pulse Resp B/P Pulse Ox O2 Delivery O2 Flow Rate FiO2 08/28/16 17:30 104 16 97/55 99 08/28/16 17:10 30 08/28/16 17:00 Mechanical Ventilator 08/28/16 16:00 99.7 Intake and Output 08/27/16 08/27/16 08/28/16 15:00 23:00 07:00 Intake Total 1069.00 ml 1074.42 ml 1321 ml Output Total 385 ml 420 ml 510 ml Balance 684.00 ml 654.42 ml 811 ml Exam Constitutional: non-verbal ENMT: intubated Respiratory: clear to auscultation Cardiovascular: regular rate and rhythm Gastrointestinal: soft, No distended Musculoskeletal: nl extremities to inspection Results Result Diagram: 08/28/16 0428 08/28/16 0428 Results 24 hrs Laboratory Tests Test 08/27/16 17:58 08/27/16 23:30 08/27/16 23:38 08/28/16 04:28 Bedside Glucose 96 89 Potassium Level 3.8 3.9 Magnesium Level 1.6 L 2.3 White Blood Count 17.0 H Red Blood Count 3.32 L Hemoglobin 9.9 L Hematocrit 31.6 L Mean Corpuscular Volume 95.2 Mean Corpuscular Hemoglobin 29.8 Mean Corpuscular Hemoglobin Concent 31.3 L Red Cell Distribution Width 14.1 Platelet Count 98 L Mean Platelet Volume 10.4 Neutrophils % 69.0 Lymphocytes % 18.4 Monocytes % 7.1 Eosinophils % 4.5 Basophils % 0.3 Nucleated Red Blood Cells % 0.0 Neutrophils # 11.7 H Lymphocytes # 3.1 H Monocytes # 1.2 H Eosinophils # 0.8 H Basophils # 0.1 Nucleated Red Blood Cells # 0.0 Sodium Level 140 Chloride Level 110 Carbon Dioxide Level 25 Anion Gap 9 Blood Urea Nitrogen 8 Creatinine 0.78 Glucose Level 95 Calcium Level 7.5 L Test 08/28/16 06:21 08/28/16 12:18 Bedside Glucose 89 72 Medications Medications Current Medications Propofol 100 ml @ 3 mls/hr Q12H IV Last administered on 08/26/16 07:00; Admin Dose 3 MLS/HR; Start 08/25/16 at 05:00 Piperacillin Sod/ Tazobactam Sod 100 ml @ 200 mls/hr Q6 IVPB Last administered on 08/28/16 12:18; Admin Dose 200 MLS/HR; Start 08/25/16 at 06:00 Phenylephrine HCl/ Dextrose (Jorge-Syneph/D5W) 500 ml @ 75 mls/hr TITRATE IV Last administered on 08/25/16 18:21; Admin Dose 37.5 MLS/HR; Start 08/25/16 at 06:30 Pantoprazole (Protonix Iv) 40 mg BID IV Last administered on 08/28/16 09:17; Admin Dose 40 MG; Start 08/25/16 at 11:00 Morphine Sulfate 2 mg 2 mg Q3H PRN IV PAIN LEVEL 6-10 Last administered on 08/25 15:53; Admin Dose 2 MG; Start 08/25/16 at 11:00 Norepinephrine 16 mg/Dextrose 500 ml @ 1.87 mls/hr TITRATE IV Last administered on 08/27/16 19:40; Admin Dose 20 MLS/HR; Start 08/25/16 at 15:00 Sodium Chloride 1,000 ml @ 75 mls/hr [id number] IV Last administered on 14:48; Admin Dose 75 MLS/HR; Start 08/25/16 at 18:00 Fentanyl 100 ml @ 2.5 mls/hr TITRATE IV Last administered on 08/28/16 07:32; Admin Dose 10 MLS/HR; Start 08/25/16 at 19:00 Midazolam HCl (Versed) 50 ml @ 1 mls/hr TITRATE IV Last administered on 09:56; Admin Dose 8 MLS/HR; Start 08/25/16 at 19:00 Acetaminophen (Tylenol Liquid) 650 mg Q4H PRN GTB PAIN AND OR ELEVATED TEMP Last administered on 08/27/16 11:52; Admin Dose 650 MG; Start 08/25/16 at 20:00 Aspirin (Aspirin) 81 mg DAILY PO Last administered on 08/28/16 09:17; Admin Dose 81 MG; Start 08/27/16 at 09:00 Insulin Aspart (Novolog Insulin Pen) NOVOLOG *MILD* ALGORI... Q6 SC ; Start 04/03 at 18:00 Miscellaneous Information 1 ea NOTE XX ; Start 08/26/16 at 17:00 Glucose (Glutose) 15 gm Q15M PRN PO DECREASED GLUCOSE; Start 08/26/16 at 17:00 Glucose (Glutose) 22.5 gm Q15M PRN PO DECREASED GLUCOSE; Start 08/26/16 at 17: 00 Dextrose (D50w Syringe) 25 ml Q15M PRN IV DECREASED GLUCOSE; Start 08/26/16 at 17:00 Dextrose (D50w Syringe) 50 ml Q15M PRN IV DECREASED GLUCOSE; Start 08/26/16 at 17:00 Glucagon (Glucagen) 1 mg Q15M PRN IM DECREASED GLUCOSE; Start 08/26/16 at 17:00 Glucose (Glutose) 15 gm Q15M PRN BUCCAL DECREASED GLUCOSE; Start 08/26/16 at 17 :00 Clopidogrel Bisulfate (plaVIX) 75 mg DAILY NGT Last administered on 08/28/16 09:18; Admin Dose 75 MG; Start 08/28/16 at 09:00 Atorvastatin Calcium (Lipitor) 20 mg HS NGT ; Start 08/28/16 at 21:00 JAMEEL HERNANDEZ Aug 28, 2016 17:52
[2016-08-28] MEDS: ACETAMINOPHEN 650MG/20.3ML CUP GTB PRN (18:56)
[2016-08-28] MEDS: ATORVASTATIN 20 MG TAB NGT SCH (20:38)
[2016-08-28 23:19] LABS: POTASSIUM 3.6 mmol/L (3.5-5.1)
[2016-08-28 23:23] LABS: MAGNESIUM 1.9 mg/dl (1.7-2.5)
[2016-08-29] VITALS (80 sets, daily range): BP systolic 92–134; BP diastolic 44–86; PULSE 88–136; RESP 13–31
[2016-08-29] MEDS: POTASSIUM CHLORIDE 50 ML IVPB PRN ×2 (01:06→07:49)
--- NOTE | 2016-08-29 03:17 | SP ---
DATE OF PROCEDURE: ELECTROENCEPHALOGRAM REFERRING PHYSICIAN: Dr. Dyer ATTENDING: Dr. Tirado TECHNIQUE: EEG done using 10-20 International electrode system with photic stimulation. FINDINGS: Bilateral occipital hemisphere view showed delta wave, 3 to 4 Hz, low amplitude, asymmetr ic bilateral. Photic stimulation done did not elicit a drive. No epileptiform discharge or seizure activities recorded. IMPRESSION: This is an abnormal electroencephalogram that shows generalized slowing consistent with underlying encephalopathy. No epileptiform discharge or seizure activity is recorded. Followup EE G may be needed if clinically indicated. Dictated By: DAVID TIRADO MD NA/PEÑA Conf#: [id number] DID#: [id number]
[2016-08-29 04:44] LABS: ADD SCAN DIFF NO
[2016-08-29 04:53] LABS: BASOPHILS % 0.3 % (0.0-2.0); EOSINOPHILS # 0.5 10^3/ul (0.0-0.5); EOSINOPHILS % 4.9 % (0.0-7.0); HEMATOCRIT 27.2 % (42.0-52.0); HEMOGLOBIN 8.6 g/dl (14.0-18.0); LYMPHOCYTES # 1.5 10^3/ul (0.8-2.9); LYMPHOCYTES % 13.9 % (15.0-51.0); MEAN CORPUSCULAR HEMOGLOBIN 30.1 pg (29.0-33.0); MEAN CORPUSCULAR HGB CONC 31.6 g/dl (32.0-37.0); MEAN CORPUSCULAR VOLUME 95.1 fl (82.0-101.0); MEAN PLATELET VOLUME 10.6 fl (7.4-10.4); MONOCYTES % 9.2 % (0.0-11.0); NEUTROPHIL # 7.5 10^3/ul (1.6-7.5); NEUTROPHILS % 70.8 % (39.0-77.0); PLATELET COUNT 102 10^3/UL (140-415); RED BLOOD COUNT 2.86 10^6/ul (4.70-6.10); WHITE BLOOD COUNT 10.5 10^3/ul (4.8-10.8)
[2016-08-29] MEDS: PROPOFOL 100 ML IV SCH ×2 (05:00→17:00)
[2016-08-29 05:22] LABS: ALBUMIN 2.2 g/dl (3.3-4.9); ALBUMIN/GLOBULIN RATIO 0.88; BILIRUBIN,INDIRECT 0.2 mg/dl (0-1.1); BILIRUBIN,TOTAL 0.2 mg/dl (0.2-1.3); CALCIUM 7.5 mg/dl (8.4-10.2); CREATININE 0.82 mg/dl (0.61-1.24); MAGNESIUM 1.8 mg/dl (1.7-2.5); POTASSIUM 3.8 mmol/L (3.5-5.1); TOTAL PROTEIN 4.7 g/dl (6.1-8.1)
[2016-08-29] MEDS: INSULIN ASPART [NOVOLOG] 3 ML PEN SC SCH ×2 (06:00→12:00)
[2016-08-29] MEDS: PIPER-TAZO 3.375 GM IV (PMX) 100 ML IVPB SCH ×4 (06:05→23:51)
[2016-08-29] MEDS: SOD CHLORIDE 0.9% 1,000 ML IV SCH ×2 (06:06→23:51)
[2016-08-29] MEDS: FENTAnyl (DRIP) 1000 mcg/100mL 100 ML IV SCH ×3 (07:30→20:00)
[2016-08-29 08:02] LABS: AADO2 Arterial 94.9 mmHg (7.0-24.0); Allen Test ACCEPTAB; Arterial Base Excess -1.3 mmol/L (-3.0-3); Arterial COHb 0.3 % (0.0-3.0); Arterial Fraction of Oxyhgb 94.9 % (93.0-99.0); Arterial HCO3 22.4 mmol/L (22.0-26.0); Arterial MetHb 0.5 % (0.0-1.5); Arterial Total Hemglobin 9.7 g/dl (12.0-18.0); MODE VENT - AC
[2016-08-29] MEDS: PANTOPRAZOLE 40 MG INJ IV SCH ×2 (08:10→21:27)
[2016-08-29] MEDS: ASPIRIN 81 MG TAB PO SCH (08:10)
[2016-08-29] MEDS: ACETAMINOPHEN 650MG/20.3ML CUP GTB PRN (08:10)
[2016-08-29] MEDS: CLOPIDOGREL 75 MG TAB NGT SCH (08:10)
--- NOTE | 2016-08-29 08:10 | PN ---
DATE: 08/28/2016 CARDIOLOGY FOLLOWUP SUBJECTIVE: Discussed with the staff, discussed with the patient's brother. The patient remains in sinus rhythm. Has occasional PVCs, but overall has been stable. He is intubated on the vent, unab le to wean off so far. Also, he gets agitated ____. MEDICATIONS: Reviewed as per medication reconciliation, personally reviewed, which include: 1. Aspirin 81. 2. Insulin. 3. Levophed currently at 11 mcg. 4. Protonix IV b.i.d. 5. Zosyn. PHYSICAL EXAMINATION: VITAL SIGNS: Temperature is 100.1, heart rate of 89, blood pressure of 107/66, respiration rate of 17, saturating 100%. HEENT: Normocephalic, atraumatic. Pupils are equal. Status post intubation on the vent. CARDIOVASCULAR: Regular rate and rhythm, systolic murmur. PULMONARY: With no wheezes heard anteriorly. GASTROINTESTINAL: Soft, nontender. EXTREMITIES: With no significant lower extremity edema. Vascular ____ with no bleeding, no hematoma . CHEST: There was a central line in place. LABORATORY: Sodium 140, potassium is 3.9, BUN of 8, creatinine 0.78, glucose of 95. CVP was about 8 to 10. I's and O's is 3377 in and 1365 out. ASSESSMENT AND PLAN: 1. Status post cardiac arrest. 2. Ventricular fibrillation arrest. 3. Anterolateral ST elevation myocardial infarction. 4. Status post PTCA of the LAD and left circumflex artery. 5. Possible transient gastrointestinal bleed, currently has resolved. 6. Hypoxemic anoxic brain injury and encephalopathy, hypoxemic respiratory failure, status post int ubation on the vent. 7. Shock, probably multifactorial secondary to cardiomyopathy, cardiogenic as well as septic. 8. Recurrent fever, etiology unclear, blood culture has been ordered. 9. Hyperglycemia has improved. RECOMMENDATION: There is no more sign of bleeding so far. Nutritional support to be continued once okay from a pulmonary standpoint. We will continue with a CVP monitoring. I would continue with th e aspirin and add Plavix to his regimen. I will also add Lipitor as his LFTs have improved. We arun l continue with the ICU care. Continue with close monitoring. More than 38 minutes of critical care time was spent managing this patient excluding any procedures. Dictated By: DENNIS DUBOSE/NTS Conf#: [id number] DID#: [id number] CC: JAMEEL HERNANDEZ MD;*End*
--- NOTE | 2016-08-29 09:04 | RADRPT ---
PROCEDURE: XR Chest. CLINICAL INDICATION: CHF TECHNIQUE: A single AP view of the chest was obtained. COMPARISON: Chest x-ray dated 08/26/2016 and 08/27/2016 FINDINGS: The endotracheal tube tip is approximately 2.7 cm above the maia. The tip of the enteric tube ex tends below the left diaphragm. There is a left subclavian central venous catheter with tip near the junction of the left brachiocephalic vein and SVC. The intra-aortic balloon pump has been removed. There is a moderate right pleural effusion with layering component posteriorly. No focal airspace o pacification or pneumothorax is seen. The cardiomediastinal silhouette is within normal limits for size. The osseous structures are unremarkable. IMPRESSION: 1. Moderate right pleural effusion, mildly increased when compared to the prior examination. 2. Tubes and lines, as described above. RPTAT: HH .Gracy Duenas MD, MD Date Time Electronically viewed and signed by .Gracy Duenas MD, on 08/29/2016 09:04 .Cesar/
--- NOTE | 2016-08-29 10:33 | CONS ---
Date/Time of Note Date/Time of Note DATE: 08/29/16 TIME: 10:30 Assessment/Plan Assessment/Plan Additional Assessment/Plan Ventilator settings; AC of 16, tidal volume 600, PEEP of 5, 30% FiO2. Chest x-ray was reviewed from today which is showing a very small right pleural effusion. Assessment recommendations; next 1. Patient admitted with acute MA causing respiratory failure. 3. Status post CPR. Possibly with some element of anoxic brain injury. 4. Rule out some element of aspiration pneumonia. 5. Patient hemodynamically has improved. He is off balloon pump as well as off pressor support. Continue current supportive care. I did have a very detailed discussion the patient's brother at bedside and answered all his questions. Weaning from ventilator with depend upon adequate mental status recovery. Consultation Date/Type/Reason Admit Date/Time Aug 25, 2016 at 04:41 Initial Consult Date 08/25/16 Type of Consultation: Pulmonary/critical care 24 HR Interval Summary Free Text/Dictation Patient condition remains critical. He is awake but does not follow any commands. Has been off sedation since yesterday afternoon. Has remained hemodynamically stable. Now off pressor support. General exam; young male, orally intubated, awake but does not follow any commands. Currently in no distress. Exam/Review of Systems Vital Signs Vitals Vital Signs Date Time Temp Pulse Resp B/P Pulse Ox O2 Delivery O2 Flow Rate FiO2 08/29/16 09:00 116 18 105/55 96 Mechanical Ventilator 08/29/16 08:00 102.9 08/29/16 08:00 30 Intake and Output 08/28/16 08/28/16 08/29/16 15:00 23:00 07:00 Intake Total 923.75 ml 937.25 ml 1227.50 ml Output Total 565 ml 370 ml 371 ml Balance 358.75 ml 567.25 ml 856.50 ml Exam HEENT examination; supple neck, no JVD. No lymphadenopathy. Midline trachea. No thyromegaly. Pupils are midsize reactive to light. Orally intubated. Chest exam is; clear to auscultation. S1-S2 audible, no murmurs. Regular rhythm. Abdomen examination; soft, nondistended. No organomegaly. Bowel sounds audible. Extremity exam is; no peripheral edema. Pulses 1+ bilaterally. VARNISHER PLASTICOATER exam; patient is awake but does not follow any commands. Results Result Diagram: 08/29/16 0430 08/29/16 0430 Results 24 hrs Laboratory Tests Test 08/28/16 12:18 08/28/16 18:43 08/28/16 23:00 08/28/16 23:40 Bedside Glucose 72 86 87 Potassium Level 3.6 Magnesium Level 1.9 Test 08/29/16 04:30 08/29/16 06:17 08/29/16 07:31 White Blood Count 10.5 # Red Blood Count 2.86 L Hemoglobin 8.6 L Hematocrit 27.2 L Mean Corpuscular Volume 95.1 Mean Corpuscular Hemoglobin 30.1 Mean Corpuscular Hemoglobin Concent 31.6 L Red Cell Distribution Width 14.0 Platelet Count 102 L Mean Platelet Volume 10.6 H Neutrophils % 70.8 Lymphocytes % 13.9 L Monocytes % 9.2 Eosinophils % 4.9 Basophils % 0.3 Nucleated Red Blood Cells % 0.0 Neutrophils # 7.5 Lymphocytes # 1.5 Monocytes # 1.0 H Eosinophils # 0.5 Basophils # 0.0 Nucleated Red Blood Cells # 0.0 Sodium Level 137 Potassium Level 3.8 Chloride Level 113 H Carbon Dioxide Level 24 Anion Gap 4 L Blood Urea Nitrogen 9 Creatinine 0.82 Glucose Level 101 Calcium Level 7.5 L Magnesium Level 1.8 Total Bilirubin 0.2 Direct Bilirubin 0.00 Indirect Bilirubin 0.2 Aspartate Amino Transf (AST/SGOT) 88 H Alanine Aminotransferase (ALT/SGPT) 72 H Alkaline Phosphatase 137 H Total Protein 4.7 L Albumin 2.2 L Globulin 2.50 Albumin/Globulin Ratio 0.88 Bedside Glucose 93 Blood Gas Specimen Source Blood arterial Arterial Blood Date Drawn 08/29/2016 7:39:01 AM Arterial Blood pH (Temp corrected) 7.445 Arterial Blood pCO2 (Temp correct) 33.3 L Arterial Blood pO2 (Temp corrected) 79.9 L Arterial Blood HCO3 22.4 Arterial Blood Base Excess -1.3 Arterial Blood Oxygen Saturation 95.7 Gregory Test ACCEPTAB Arterial Blood Gas Puncture Site Right Radial Arterial Blood Carboxyhemoglobin 0.3 Arterial Blood Methemoglobin 0.5 Blood Gas A-a O2 Differential 94.9 H Oxyhemoglobin Percent 94.9 Total Hemoglobin 9.7 L Blood Gas Temperature 37.0 Blood Gas Respiration Rate 16.0 Blood Gas Actual Respiration Rate 17 Blood Gas Modality VENT - AC FiO2 30.0 Blood Gas Tidal Volume 600.0 Blood Gas Low PEEP Setting 5.0 Blood Gas Notified Whom JLD Blood Gas Notified Time 08/29/2016 8:02:47 AM Medications Medications Current Medications Propofol 100 ml @ 3 mls/hr Q12H IV Last administered on 08/26/16 07:00; Admin Dose 3 MLS/HR; Start 08/25/16 at 05:00 Piperacillin Sod/ Tazobactam Sod 100 ml @ 200 mls/hr Q6 IVPB Last administered on 08/29/16 06:05; Admin Dose 200 MLS/HR; Start 08/25/16 at 06:00 Phenylephrine HCl/ Dextrose (Jorge-Syneph/D5W) 500 ml @ 75 mls/hr TITRATE IV Last administered on 08/25/16 18:21; Admin Dose 37.5 MLS/HR; Start 08/25/16 at 06:30 Pantoprazole (Protonix Iv) 40 mg BID IV Last administered on 08/29/16 08:10; Admin Dose 40 MG; Start 08/25/16 at 11:00 Morphine Sulfate 2 mg 2 mg Q3H PRN IV PAIN LEVEL 6-10 Last administered on 08/25 15:53; Admin Dose 2 MG; Start 08/25/16 at 11:00 Norepinephrine 16 mg/Dextrose 500 ml @ 1.87 mls/hr TITRATE IV Last administered on 08/27/16 19:40; Admin Dose 20 MLS/HR; Start 08/25/16 at 15:00 Sodium Chloride 1,000 ml @ 75 mls/hr [id number] IV Last administered on 06:06; Admin Dose 75 MLS/HR; Start 08/25/16 at 18:00 Fentanyl 100 ml @ 2.5 mls/hr TITRATE IV Last administered on 08/28/16 07:32; Admin Dose 10 MLS/HR; Start 08/25/16 at 19:00 Midazolam HCl (Versed) 50 ml @ 1 mls/hr TITRATE IV Last administered on 09:56; Admin Dose 8 MLS/HR; Start 08/25/16 at 19:00 Acetaminophen (Tylenol Liquid) 650 mg Q4H PRN GTB PAIN AND OR ELEVATED TEMP Last administered on 08/29/16 08:10; Admin Dose 650 MG; Start 08/25/16 at 20:00 Aspirin (Aspirin) 81 mg DAILY PO Last administered on 08/29/16 08:10; Admin Dose 81 MG; Start 08/27/16 at 09:00 Insulin Aspart (Novolog Insulin Pen) NOVOLOG *MILD* ALGORI... Q6 SC ; Start 04/03 at 18:00 Miscellaneous Information 1 ea NOTE XX ; Start 08/26/16 at 17:00 Glucose (Glutose) 15 gm Q15M PRN PO DECREASED GLUCOSE; Start 08/26/16 at 17:00 Glucose (Glutose) 22.5 gm Q15M PRN PO DECREASED GLUCOSE; Start 08/26/16 at 17: 00 Dextrose (D50w Syringe) 25 ml Q15M PRN IV DECREASED GLUCOSE; Start 08/26/16 at 17:00 Dextrose (D50w Syringe) 50 ml Q15M PRN IV DECREASED GLUCOSE; Start 08/26/16 at 17:00 Glucagon (Glucagen) 1 mg Q15M PRN IM DECREASED GLUCOSE; Start 08/26/16 at 17:00 Glucose (Glutose) 15 gm Q15M PRN BUCCAL DECREASED GLUCOSE; Start 08/26/16 at 17 :00 Clopidogrel Bisulfate (plaVIX) 75 mg DAILY NGT Last administered on 08/29/16 08:10; Admin Dose 75 MG; Start 08/28/16 at 09:00 Atorvastatin Calcium (Lipitor) 20 mg HS NGT Last administered on 08/28/16 20: 38; Admin Dose 20 MG; Start 08/28/16 at 21:00 TUYET SCHWARTZ Aug 29, 2016 10:33
[2016-08-29] MEDS ORDERED: MAGNESIUM SULFATE 3 GM in SOD CHLORIDE 0.9% 100 ML IVPB ONE (15:00)
--- NOTE | 2016-08-29 17:25 | PN ---
Date/Time of Note Date/Time of Note DATE: 08/29/16 TIME: 17:22 Assessment/Plan VTE Prophylaxis VTE Prophylaxis Intervention: SCD's Assessment/Plan Chief Complaint/Hosp Course 1. Cardiac arrest, revived in ER after several rounds of CPR and multiple shocks - Revived. Found to have post arrest STEMI, taken directly to the slab inspector 2. STEMI (ST elevation myocardial infarction) s/p Angioplasty -cont ASA 3. Cardiogenic Shock-resolved -Status post IABP -Now off pressor support 4. GIB-resolved 5. Acute Resp Failure -Pulm on case, cont vent support 6. Hyperglycemia-reactive -A1C is 5.1 -Now off Insulin gtt 7. Anoxic encephalopathy EEG shows encephalopathy Patient is not following commands at this time when off sedation, continue to monitor neuro status PPx- SCD's Problems: Subjective 24 Hr Interval Summary Subjective hx not possible: pt non-verbal Exam/Review of Systems Vital Signs Vitals Vital Signs Date Time Temp Pulse Resp B/P Pulse Ox O2 Delivery O2 Flow Rate FiO2 08/29/16 17:12 104 16 97 30 08/29/16 17:00 105/61 Mechanical Ventilator 08/29/16 16:00 99.0 Intake and Output 08/28/16 08/28/16 08/29/16 15:00 23:00 07:00 Intake Total 923.75 ml 937.25 ml 1227.50 ml Output Total 565 ml 370 ml 371 ml Balance 358.75 ml 567.25 ml 856.50 ml Exam Constitutional: non-verbal ENMT: intubated Respiratory: clear to auscultation Cardiovascular: regular rate and rhythm Gastrointestinal: soft, No distended Musculoskeletal: nl extremities to inspection Results Result Diagram: 08/29/16 0430 08/29/16 0430 Results 24 hrs Laboratory Tests Test 08/28/16 18:43 08/28/16 23:00 08/28/16 23:40 08/29/16 04:30 Bedside Glucose 86 87 Potassium Level 3.6 3.8 Magnesium Level 1.9 1.8 White Blood Count 10.5 # Red Blood Count 2.86 L Hemoglobin 8.6 L Hematocrit 27.2 L Mean Corpuscular Volume 95.1 Mean Corpuscular Hemoglobin 30.1 Mean Corpuscular Hemoglobin Concent 31.6 L Red Cell Distribution Width 14.0 Platelet Count 102 L Mean Platelet Volume 10.6 H Neutrophils % 70.8 Lymphocytes % 13.9 L Monocytes % 9.2 Eosinophils % 4.9 Basophils % 0.3 Nucleated Red Blood Cells % 0.0 Neutrophils # 7.5 Lymphocytes # 1.5 Monocytes # 1.0 H Eosinophils # 0.5 Basophils # 0.0 Nucleated Red Blood Cells # 0.0 Sodium Level 137 Chloride Level 113 H Carbon Dioxide Level 24 Anion Gap 4 L Blood Urea Nitrogen 9 Creatinine 0.82 Glucose Level 101 Calcium Level 7.5 L Total Bilirubin 0.2 Direct Bilirubin 0.00 Indirect Bilirubin 0.2 Aspartate Amino Transf (AST/SGOT) 88 H Alanine Aminotransferase (ALT/SGPT) 72 H Alkaline Phosphatase 137 H Total Protein 4.7 L Albumin 2.2 L Globulin 2.50 Albumin/Globulin Ratio 0.88 Test 08/29/16 06:17 08/29/16 07:31 08/29/16 13:03 Bedside Glucose 93 112 Blood Gas Specimen Source Blood arterial Arterial Blood Date Drawn 08/29/2016 7:39:01 AM Arterial Blood pH (Temp corrected) 7.445 Arterial Blood pCO2 (Temp correct) 33.3 L Arterial Blood pO2 (Temp corrected) 79.9 L Arterial Blood HCO3 22.4 Arterial Blood Base Excess -1.3 Arterial Blood Oxygen Saturation 95.7 Gregory Test ACCEPTAB Arterial Blood Gas Puncture Site Right Radial Arterial Blood Carboxyhemoglobin 0.3 Arterial Blood Methemoglobin 0.5 Blood Gas A-a O2 Differential 94.9 H Oxyhemoglobin Percent 94.9 Total Hemoglobin 9.7 L Blood Gas Temperature 37.0 Blood Gas Respiration Rate 16.0 Blood Gas Actual Respiration Rate 17 Blood Gas Modality VENT - AC FiO2 30.0 Blood Gas Tidal Volume 600.0 Blood Gas Low PEEP Setting 5.0 Blood Gas Notified Whom JLD Blood Gas Notified Time 08/29/2016 8:02:47 AM Medications Medications Current Medications Propofol 100 ml @ 3 mls/hr Q12H IV Last administered on 08/26/16 07:00; Admin Dose 3 MLS/HR; Start 08/25/16 at 05:00 Piperacillin Sod/ Tazobactam Sod 100 ml @ 200 mls/hr Q6 IVPB Last administered on 08/29/16 17:01; Admin Dose 200 MLS/HR; Start 08/25/16 at 06:00 Phenylephrine HCl/ Dextrose (Jorge-Syneph/D5W) 500 ml @ 75 mls/hr TITRATE IV Last administered on 08/25/16 18:21; Admin Dose 37.5 MLS/HR; Start 08/25/16 at 06:30 Pantoprazole (Protonix Iv) 40 mg BID IV Last administered on 08/29/16 08:10; Admin Dose 40 MG; Start 08/25/16 at 11:00 Morphine Sulfate 2 mg 2 mg Q3H PRN IV PAIN LEVEL 6-10 Last administered on 08/25 15:53; Admin Dose 2 MG; Start 08/25/16 at 11:00 Norepinephrine 16 mg/Dextrose 500 ml @ 1.87 mls/hr TITRATE IV Last administered on 08/27/16 19:40; Admin Dose 20 MLS/HR; Start 08/25/16 at 15:00 Sodium Chloride 1,000 ml @ 75 mls/hr [id number] IV Last administered on 06:06; Admin Dose 75 MLS/HR; Start 08/25/16 at 18:00 Fentanyl 100 ml @ 2.5 mls/hr TITRATE IV Last administered on 08/29/16 07:30; Admin Dose 2 MLS/HR; Start 08/25/16 at 19:00 Midazolam HCl (Versed) 50 ml @ 1 mls/hr TITRATE IV Last administered on 09:56; Admin Dose 8 MLS/HR; Start 08/25/16 at 19:00 Acetaminophen (Tylenol Liquid) 650 mg Q4H PRN GTB PAIN AND OR ELEVATED TEMP Last administered on 08/29/16 08:10; Admin Dose 650 MG; Start 08/25/16 at 20:00 Aspirin (Aspirin) 81 mg DAILY PO Last administered on 08/29/16 08:10; Admin Dose 81 MG; Start 08/27/16 at 09:00 Miscellaneous Information 1 ea NOTE XX ; Start 08/26/16 at 17:00 Clopidogrel Bisulfate (plaVIX) 75 mg DAILY NGT Last administered on 08/29/16 08:10; Admin Dose 75 MG; Start 08/28/16 at 09:00 Atorvastatin Calcium 20 mg 20 mg HS NGT Last administered on 08/28/16 20:38; Admin Dose 20 MG; Start 08/28/16 at 21:00 Magnesium Sulfate/ Sodium Chloride (Magnesium Sulfate/NS) 106 ml @ 35.333 mls/ hr ONCE ONCE IVPB Last administered on 08/29/16t 15:00; Admin Dose 35.333 MLS/ HR; Start 08/29/16 at 15:00; Stop 08/29/16 at 17:59 JAMEEL HERNANDEZ Aug 29, 2016 17:25
[2016-08-29] MEDS: ATORVASTATIN 20 MG TAB NGT SCH (21:27)
[2016-08-30] VITALS (45 sets, daily range): BP systolic 86–126; BP diastolic 43–87; PULSE 86–112; RESP 16–21
[2016-08-30] MEDS: FENTAnyl (DRIP) 1000 mcg/100mL 100 ML IV SCH (03:11)
[2016-08-30] MEDS: ACETAMINOPHEN 650MG/20.3ML CUP GTB PRN ×2 (04:58→16:00)
[2016-08-30] MEDS: PROPOFOL 100 ML IV SCH ×2 (05:00→17:00)
[2016-08-30] MEDS: PIPER-TAZO 3.375 GM IV (PMX) 100 ML IVPB SCH ×4 (05:40→23:53)
[2016-08-30 05:57] LABS: ALBUMIN 2.1 g/dl (3.3-4.9)
[2016-08-30 05:58] LABS: POTASSIUM 3.4 mmol/L (3.5-5.1)
[2016-08-30 06:00] LABS: ALBUMIN/GLOBULIN RATIO 0.77; BILIRUBIN,INDIRECT 0.2 mg/dl (0-1.1); BILIRUBIN,TOTAL 0.2 mg/dl (0.2-1.3); CALCIUM 7.6 mg/dl (8.4-10.2); CREATININE 0.91 mg/dl (0.61-1.24); TOTAL PROTEIN 4.8 g/dl (6.1-8.1)
[2016-08-30 06:01] LABS: MAGNESIUM 2.2 mg/dl (1.7-2.5)
[2016-08-30] MEDS: POTASSIUM CHLORIDE 50 ML IVPB PRN ×2 (06:39→07:36)
--- NOTE | 2016-08-30 08:21 | PN ---
Date/Time of Note Date/Time of Note DATE: 08/30/16 TIME: 08:18 Assessment/Plan VTE Prophylaxis VTE Prophylaxis Intervention: SCD's Lines/Catheters IV Catheter Type (from [facility]): Central Line Central line still needed: No Urinary Cath still in place: Yes Reason Cath still needed: urinary retention Assessment/Plan Assessment/Plan 1. Status post cardiac arrest. 2. Ventricular fibrillation arrest. 3. Anterolateral ST elevation myocardial infarction. 4. Status post PTCA of the LAD and left circumflex artery. 5. Possible transient gastrointestinal bleed, currently has resolved. 6. Hypoxemic anoxic brain injury and encephalopathy, hypoxemic respiratory failure, status post intubation on the vent. 7. Shock, probably multifactorial secondary to cardiomyopathy, cardiogenic as well as septic. 8. Recurrent fever, etiology unclear, blood culture has been ordered. 9. Hyperglycemia has improved. 10 Moderate Right effusion 11. Anemia RECOMMENDATION: -I would continue with the aspirin and add Plavix to his regimen. -Progressive decreased HCT - if further drops, may need to hold antiplatelets, but would try to continue and possibly support wiht prbc -Iv lasix prn -We will continue with the ICU care. Continue with close monitoring. Subjective 24 Hr Interval Summary Free Text/Dictation The patient with no cahgne and unresponsive to commands Exam/Review of Systems Vital Signs Vitals Vital Signs Date Time Temp Pulse Resp B/P Pulse Ox O2 Delivery O2 Flow Rate FiO2 08/30/16 06:00 100.4 95 19 101/49 97 Mechanical Ventilator 08/30/16 05:21 30 Intake and Output 08/29/16 08/29/16 08/30/16 14:59 22:59 06:59 Intake Total 1240 ml 1115.999 ml 1530 ml Output Total 385 ml 325 ml 360 ml Balance 855 ml 790.999 ml 1170 ml Results Result Diagram: 08/29/16 0430 08/30/16 0421 Results 24 hrs Laboratory Tests Test 08/29/16 13:03 08/30/16 04:21 Bedside Glucose 112 Sodium Level 142 Potassium Level 3.4 L Chloride Level 111 H Carbon Dioxide Level 25 Anion Gap 9 # Blood Urea Nitrogen 10 Creatinine 0.91 Glucose Level 109 Calcium Level 7.6 L Magnesium Level 2.2 Total Bilirubin 0.2 Direct Bilirubin 0.00 Indirect Bilirubin 0.2 Aspartate Amino Transf (AST/SGOT) 61 H Alanine Aminotransferase (ALT/SGPT) 63 Alkaline Phosphatase 127 H Total Protein 4.8 L Albumin 2.1 L Globulin 2.70 Albumin/Globulin Ratio 0.77 Medications Medications Current Medications Propofol 100 ml @ 3 mls/hr Q12H IV Last administered on 08/26/16 07:00; Admin Dose 3 MLS/HR; Start 08/25/16 at 05:00 Piperacillin Sod/ Tazobactam Sod 100 ml @ 200 mls/hr Q6 IVPB Last administered on 08/30/16 05:40; Admin Dose 200 MLS/HR; Start 08/25/16 at 06:00 Phenylephrine HCl/ Dextrose (Jorge-Syneph/D5W) 500 ml @ 75 mls/hr TITRATE IV Last administered on 08/25/16 18:21; Admin Dose 37.5 MLS/HR; Start 08/25/16 at 06:30 Pantoprazole (Protonix Iv) 40 mg BID IV Last administered on 08/29/16 21:27; Admin Dose 40 MG; Start 08/25/16 at 11:00 Morphine Sulfate 2 mg 2 mg Q3H PRN IV PAIN LEVEL 6-10 Last administered on 08/25 15:53; Admin Dose 2 MG; Start 08/25/16 at 11:00 Norepinephrine 16 mg/Dextrose 500 ml @ 1.87 mls/hr TITRATE IV Last administered on 08/27/16 19:40; Admin Dose 20 MLS/HR; Start 08/25/16 at 15:00 Sodium Chloride 1,000 ml @ 75 mls/hr [id number] IV Last administered on 23:51; Admin Dose 75 MLS/HR; Start 08/25/16 at 18:00 Fentanyl 100 ml @ 2.5 mls/hr TITRATE IV Last administered on 08/30/16 03:11; Admin Dose 10 MLS/HR; Start 08/25/16 at 19:00 Midazolam HCl (Versed) 50 ml @ 1 mls/hr TITRATE IV Last administered on 09:56; Admin Dose 8 MLS/HR; Start 08/25/16 at 19:00 Acetaminophen (Tylenol Liquid) 650 mg Q4H PRN GTB PAIN AND OR ELEVATED TEMP Last administered on 4/15/17at 04:58; Admin Dose 650 MG; Start 08/25/16 at 20:00 Aspirin (Aspirin) 81 mg DAILY PO Last administered on 08/29/16 08:10; Admin Dose 81 MG; Start 08/27/16 at 09:00 Miscellaneous Information 1 ea NOTE XX ; Start 08/26/16 at 17:00 Clopidogrel Bisulfate (plaVIX) 75 mg DAILY NGT Last administered on 08/29/16 08:10; Admin Dose 75 MG; Start 08/28/16 at 09:00 Atorvastatin Calcium (Lipitor) 20 mg HS NGT Last administered on 08/29/16 21: 27; Admin Dose 20 MG; Start 08/28/16 at 21:00 SHAILESH PABLO MD Aug 30, 2016 08:21
[2016-08-30] MEDS ORDERED: FUROSEMIDE 40 MG INJ IV ONE (08:30)
[2016-08-30] MEDS ORDERED: FUROSEMIDE 20 MG INJ IV ONE (09:00)
--- NOTE | 2016-08-30 09:00 | PN ---
DATE: 08/29/2016 CARDIOLOGY FOLLOWUP SUBJECTIVE: Discussed with multiple family members including cousins at the bedside, discussed with the staff, discussed with Dr. Maya. MEDICATIONS: Reviewed. The patient remains intubated on the vent. He is still confused according to the family, he opens his eyes and blinks to their commands. The patient has not been his neurological status. He has been able to wean off of pressors through. MEDICATIONS: Reviewed. PHYSICAL EXAMINATION: VITAL SIGNS: Temperature 99.1, heart rate of 93, blood pressure 92/49, respiration rate of 16, satu rating 100%. HEENT: Normocephalic, atraumatic. Pupils are equal. CARDIOVASCULAR: Regular rate and rhythm. Systolic murmur. PULMONARY: Anteriorly with no wheezes heard. GASTROINTESTINAL: Soft, nontender. EXTREMITIES: With no significant lower extremity edema. VASCULAR: Right femoral with no bleeding, no hematoma. NEUROLOGIC: Does not respond to verbal stimuli, does not track. LABORATORY: WBC of 10.5, hemoglobin 8.6, platelet of 102. Sodium 137, potassium 3.8, BUN of 9, cre atinine 0.82, glucose 101. ALT of 72. ASSESSMENT AND PLAN: 1. Status post ventricular fibrillation arrest. 2. Cardiac arrest secondary to above. 3. Anterolateral ST elevation myocardial infarction. 4. Status post percutaneous transluminal coronary angioplasty of the left anterior descending and l eft circumflex artery. 5. Possible gastrointestinal bleed with melena, currently has resolved. 6. Secondary anemia now. 7. Encephalopathy, possibly anoxic brain injury. 8. Status post shock, currently blood pressure has improved off of pressors. 9. Recurrent fever, etiology unclear. RECOMMENDATIONS: Antibiotic management as per ID recommendation. We will continue with the aspirin . Unable to start beta velia yet due to low blood pressure. will be continued. Continue t he vent support and pulmonary support. ICU care will be continued. Weaning as tolerated as per pul monary once neurological status improves. Follow up with neurology recommendations. Continue with ICU care. More than 38 minutes of critical care time was spent with this patient excluding any procedures. Dictated By: DENNIS THORNE MD AV/PEÑA Conf#: [id number] DID#: [id number] CC: JAMEEL MAYA MD;*EndCC*
--- NOTE | 2016-08-30 09:02 | CONS ---
DATE OF ADMISSION: 08/25/2016 DATE OF CONSULTATION: REFERRING PHYSICIAN: ____ Thank you for asking me to see the patient with you. HISTORY OF PRESENT ILLNESS: The patient is a 41-year-old admitted to ICU. The patient had a cardio pulmonary arrest with CVR, multiple shocks, intubation after code STEMI in which the patient has acu te respiratory failure, hyperglycemia, anoxic encephalopathy with the patient's unresponsiveness in which I got a call about him today by Dr. Maya for more evaluation and treatment. CURRENT MEDICATIONS: Include: 1. Lipitor 20 mg once a day. 2. Plavix 75 mg once a day. 3. Aspirin 81 mg once a day. 4. Potassium chloride as needed. 5. Tylenol 650 mg as needed. 6. ____as needed only. 7. Midazolam titrated IV as needed. 8. Protonix 40 mg once a day. 9. Morphine sulfate 2 mg every 3 hours as needed. 10. ____ titration. PHYSICAL EXAMINATION: GENERAL: On exam today, the patient does not follow any verbal commands, sleepy. CRANIAL NERVES: Cranial nerve II: Pupils equal on both sides, reactive to light. Cranial nerves I II, IV, and : Extraocular muscles intact for doll's maneuver. Cranial nerves V and VII: Intact c orneal reflex. Cranial nerves VIII through XII: Could not assess. MOTOR EXAM: Slight movement for painful stimuli. SENSATION, GAIT AND COORDINATION: Could not assess. HEART: Regular rate and rhythm with systolic murmur. No gallop. LUNGS: Equal breath sounds; no wheeze. ABDOMEN: Soft, relaxed, nondistended. No tenderness. ASSESSMENT AND PLAN: 1. This patient is a 41-year-old male with status post anoxic encephalopathy. EEG done and shows g eneralized slowing consistent with a history of underlying anoxic encephalopathy. No epileptiform d ischarge or seizure activity is recorded. 2. Status post cardiopulmonary arrest. 3. Anterolateral ST elevation myocardial infarction. 4. Status post PTCA and LAD and left circumflex artery. 5. Status post gastrointestinal bleed. 6. Status post respiratory failure and intubation. 7. Cardiogenic shock, plus/minus septic shock, making his condition worse. 8. Recurrent fever covered by IV antibiotic with unclear etiology. 9. Hyperglycemia in which the patient is under sliding scale insulin. 10. Stroke prophylaxis. We will keep the patient on aspirin and Plavix. Again, thank you for asking me to see the patient with you. Dictated By: DAVID ISLAS/PEÑA Conf#: [id number] DID#: [id number]
--- NOTE | 2016-08-30 09:13 | CONS ---
Date/Time of Note Date/Time of Note DATE: 08/30/16 TIME: 09:11 Assessment/Plan Assessment/Plan Additional Assessment/Plan Ventilator settings; AC of 16, tidal volume 600, PEEP of 5, 30% FiO2. Patient currently on fentanyl at 100 mics per hour. Assessment recommendations; 1. Patient admitted for acute AR status post CPR 2. Poor mental status. 3. Right lower lobe pneumonia. 4. Status post hypothermia protocol. Continue current treatment. Discontinue fentanyl drip. If the patient needs sedation I would recommend starting him on either Versed or propofol. Meanwhile continue Zosyn. Will obtain follow-up chest x-ray. I did have a detailed discussion the patient's brother at bedside and answered all his questions. Consultation Date/Type/Reason Admit Date/Time Aug 25, 2016 at 04:41 Initial Consult Date 08/25/16 Type of Consultation: Pulmonary/critical care 24 HR Interval Summary Free Text/Dictation Patient condition remains critical. He is awake but does not respond to any commands. Has remained hemodynamically stable. Exam; young male, orally intubated, awake currently in no distress. Exam/Review of Systems Vital Signs Vitals Vital Signs Date Time Temp Pulse Resp B/P Pulse Ox O2 Delivery O2 Flow Rate FiO2 08/30/16 08:00 99.7 89 16 92/43 97 Mechanical Ventilator 08/30/16 05:21 30 Intake and Output 08/29/16 08/29/16 08/30/16 15:00 23:00 07:00 Intake Total 1185.333 ml 1005.666 ml 1520 ml Output Total 355 ml 335 ml 360 ml Balance 830.333 ml 670.666 ml 1160 ml Exam HEENT exam is; supple neck, no JVD. No lymphadenopathy. Midline trachea. Orally intubated. Patient has good dentition. Nipples are midsize and reactive to light. Chest exam is; clear to auscultation. S1-S2 audible, no murmurs. Regular rhythm. Abdomen exam is; soft, nondistended. No organomegaly. Bowel sounds audible. Extremity exam is; no peripheral edema. Pulses 1+ bilaterally. SOLUTION ENGINEER exam is; patient is awake but does not follow any commands. Results Result Diagram: 08/29/16 0430 08/30/16 0421 Results 24 hrs Laboratory Tests Test 08/29/16 13:03 08/30/16 04:21 Bedside Glucose 112 Sodium Level 142 Potassium Level 3.4 L Chloride Level 111 H Carbon Dioxide Level 25 Anion Gap 9 # Blood Urea Nitrogen 10 Creatinine 0.91 Glucose Level 109 Calcium Level 7.6 L Magnesium Level 2.2 Total Bilirubin 0.2 Direct Bilirubin 0.00 Indirect Bilirubin 0.2 Aspartate Amino Transf (AST/SGOT) 61 H Alanine Aminotransferase (ALT/SGPT) 63 Alkaline Phosphatase 127 H Total Protein 4.8 L Albumin 2.1 L Globulin 2.70 Albumin/Globulin Ratio 0.77 Medications Medications Current Medications Propofol 100 ml @ 3 mls/hr Q12H IV Last administered on 08/26/16 07:00; Admin Dose 3 MLS/HR; Start 08/25/16 at 05:00 Piperacillin Sod/ Tazobactam Sod 100 ml @ 200 mls/hr Q6 IVPB Last administered on 08/30/16 05:40; Admin Dose 200 MLS/HR; Start 08/25/16 at 06:00 Phenylephrine HCl/ Dextrose (Jorge-Syneph/D5W) 500 ml @ 75 mls/hr TITRATE IV Last administered on 08/25/16 18:21; Admin Dose 37.5 MLS/HR; Start 08/25/16 at 06:30 Pantoprazole (Protonix Iv) 40 mg BID IV Last administered on 08/29/16 21:27; Admin Dose 40 MG; Start 08/25/16 at 11:00 Morphine Sulfate 2 mg 2 mg Q3H PRN IV PAIN LEVEL 6-10 Last administered on 08/25 15:53; Admin Dose 2 MG; Start 08/25/16 at 11:00 Norepinephrine 16 mg/Dextrose 500 ml @ 1.87 mls/hr TITRATE IV Last administered on 08/27/16 19:40; Admin Dose 20 MLS/HR; Start 08/25/16 at 15:00 Sodium Chloride 1,000 ml @ 75 mls/hr [id number] IV Last administered on 23:51; Admin Dose 75 MLS/HR; Start 08/25/16 at 18:00 Fentanyl 100 ml @ 2.5 mls/hr TITRATE IV Last administered on 08/30/16 03:11; Admin Dose 10 MLS/HR; Start 08/25/16 at 19:00 Midazolam HCl (Versed) 50 ml @ 1 mls/hr TITRATE IV Last administered on 09:56; Admin Dose 8 MLS/HR; Start 08/25/16 at 19:00 Acetaminophen (Tylenol Liquid) 650 mg Q4H PRN GTB PAIN AND OR ELEVATED TEMP Last administered on 08/30/16 04:58; Admin Dose 650 MG; Start 08/25/16 at 20:00 Aspirin (Aspirin) 81 mg DAILY PO Last administered on 08/29/16 08:10; Admin Dose 81 MG; Start 08/27/16 at 09:00 Miscellaneous Information 1 ea NOTE XX ; Start 08/26/16 at 17:00 Clopidogrel Bisulfate (plaVIX) 75 mg DAILY NGT Last administered on 08/29/16 08:10; Admin Dose 75 MG; Start 08/28/16 at 09:00 Atorvastatin Calcium (Lipitor) 20 mg HS NGT Last administered on 08/29/16 21: 27; Admin Dose 20 MG; Start 08/28/16 at 21:00 TUYET SCHWARTZ Aug 30, 2016 09:13
[2016-08-30] MEDS: PANTOPRAZOLE 40 MG INJ IV SCH ×2 (09:14→20:38)
[2016-08-30] MEDS: ASPIRIN 81 MG TAB PO SCH (09:14)
[2016-08-30] MEDS: CLOPIDOGREL 75 MG TAB NGT SCH (09:14)
--- NOTE | 2016-08-30 10:30 | PN ---
Date/Time of Note Date/Time of Note DATE: 08/30/16 TIME: 10:26 Assessment/Plan VTE Prophylaxis VTE Prophylaxis Intervention: heparin Lines/Catheters IV Catheter Type (from Nrs): Central Line Central line still needed: Yes (iv access ) Urinary Cath still in place: Yes Reason Cath still needed: urinary retention Assessment/Plan Assessment/Plan 1. Cardiac arrest, revived in ER after several rounds of CPR and multiple shocks - Revived. Found to have post arrest STEMI, taken directly to the company laborer 2. STEMI (ST elevation myocardial infarction) s/p Angioplasty -cont ASA 3. Cardiogenic Shock s/p IABP, off pressors now 4. GIB-resolved 5. Acute Resp Failure -Pulm on case, cont vent support 6. Hyperglycemia-reactive -A1C is 5.1 -Now off Insulin gtt 7. Anoxic encephalopathy Follow-up on EEG, neurology consulted on the case PPx- Heparin GI prophylaxis: Protonix Subjective 24 Hr Interval Summary Free Text/Dictation pt remains intubated, BP in 90-100s, on fentanyl drip, HR in 90s, on FiO2 30% Exam/Review of Systems Vital Signs Vitals Vital Signs Date Time Temp Pulse Resp B/P Pulse Ox O2 Delivery O2 Flow Rate FiO2 08/30/16 10:03 90 16 90/61 98 Mechanical Ventilator 08/30/16 09:37 30 08/30/16 08:00 99.7 Intake and Output 08/29/16 08/29/16 08/30/16 15:00 23:00 07:00 Intake Total 1185.333 ml 1005.666 ml 1605 ml Output Total 355 ml 335 ml 360 ml Balance 830.333 ml 670.666 ml 1245 ml Exam HEENT exam is; supple neck, no JVD. No lymphadenopathy. Midline trachea. Orally intubated. Patient has good dentition. Nipples are midsize and reactive to light. Chest exam is; clear to auscultation. S1-S2 audible, no murmurs. Regular rhythm. Abdomen exam is; soft, nondistended. No organomegaly. Bowel sounds audible. Extremity exam is; no peripheral edema. Pulses 1+ bilaterally. NEURO: sedated, on fentanyl drip, Fio2 30% Results Result Diagram: 08/29/16 0430 08/30/16 0421 Results 24 hrs Laboratory Tests Test 08/29/16 13:03 08/30/16 04:21 Bedside Glucose 112 Sodium Level 142 Potassium Level 3.4 L Chloride Level 111 H Carbon Dioxide Level 25 Anion Gap 9 # Blood Urea Nitrogen 10 Creatinine 0.91 Glucose Level 109 Calcium Level 7.6 L Magnesium Level 2.2 Total Bilirubin 0.2 Direct Bilirubin 0.00 Indirect Bilirubin 0.2 Aspartate Amino Transf (AST/SGOT) 61 H Alanine Aminotransferase (ALT/SGPT) 63 Alkaline Phosphatase 127 H Total Protein 4.8 L Albumin 2.1 L Globulin 2.70 Albumin/Globulin Ratio 0.77 Medications Medications Current Medications Propofol 100 ml @ 3 mls/hr Q12H IV Last administered on 08/26/16 07:00; Admin Dose 3 MLS/HR; Start 08/25/16 at 05:00 Piperacillin Sod/ Tazobactam Sod 100 ml @ 200 mls/hr Q6 IVPB Last administered on 08/30/16 05:40; Admin Dose 200 MLS/HR; Start 08/25/16 at 06:00 Phenylephrine HCl/ Dextrose (Jorge-Syneph/D5W) 500 ml @ 75 mls/hr TITRATE IV Last administered on 08/25/16 18:21; Admin Dose 37.5 MLS/HR; Start 08/25/16 at 06:30 Pantoprazole (Protonix Iv) 40 mg BID IV Last administered on 08/30/16 09:14; Admin Dose 40 MG; Start 08/25/16 at 11:00 Morphine Sulfate 2 mg 2 mg Q3H PRN IV PAIN LEVEL 6-10 Last administered on 08/25 15:53; Admin Dose 2 MG; Start 08/25/16 at 11:00 Norepinephrine 16 mg/Dextrose 500 ml @ 1.87 mls/hr TITRATE IV Last administered on 08/27/16 19:40; Admin Dose 20 MLS/HR; Start 08/25/16 at 15:00 Sodium Chloride 1,000 ml @ 75 mls/hr [id number] IV Last administered on 23:51; Admin Dose 75 MLS/HR; Start 08/25/16 at 18:00 Fentanyl 100 ml @ 2.5 mls/hr TITRATE IV Last administered on 08/30/16 03:11; Admin Dose 10 MLS/HR; Start 08/25/16 at 19:00 Midazolam HCl (Versed) 50 ml @ 1 mls/hr TITRATE IV Last administered on 09:56; Admin Dose 8 MLS/HR; Start 08/25/16 at 19:00 Acetaminophen (Tylenol Liquid) 650 mg Q4H PRN GTB PAIN AND OR ELEVATED TEMP Last administered on 08/30/16 04:58; Admin Dose 650 MG; Start 08/25/16 at 20:00 Aspirin (Aspirin) 81 mg DAILY PO Last administered on 08/30/16 09:14; Admin Dose 81 MG; Start 08/27/16 at 09:00 Miscellaneous Information 1 ea NOTE XX ; Start 08/26/16 at 17:00 Clopidogrel Bisulfate (plaVIX) 75 mg DAILY NGT Last administered on 08/30/16 09:14; Admin Dose 75 MG; Start 08/28/16 at 09:00 Atorvastatin Calcium (Lipitor) 20 mg HS NGT Last administered on 08/29/16 21: 27; Admin Dose 20 MG; Start 08/28/16 at 21:00 JULIENNE FARMER MD Aug 30, 2016 10:30
[2016-08-30] MEDS: HEPARIN 5,000 UNIT/0.5 ML VIAL SC SCH ×2 (11:15→20:44)
[2016-08-30] MEDS: SOD CHLORIDE 0.9% 1,000 ML IV SCH (15:30)
[2016-08-30] MEDS: ATORVASTATIN 20 MG TAB NGT SCH (20:38)
[2016-08-31] VITALS (52 sets, daily range): BP systolic 96–144; BP diastolic 56–96; PULSE 70–120; RESP 16–34
[2016-08-31] MEDS: ACETAMINOPHEN 650MG/20.3ML CUP GTB PRN ×2 (00:07→16:58)
[2016-08-31] MEDS: morphine 2 MG INJ IV PRN ×2 (00:10→18:00)
[2016-08-31] MEDS: PROPOFOL 100 ML IV SCH ×3 (01:37→18:10)
[2016-08-31] MEDS: SOD CHLORIDE 0.9% 1,000 ML IV SCH (04:38)
[2016-08-31 05:23] LABS: ADD SCAN DIFF NO
[2016-08-31 05:38] LABS: INR 1.17; PT RATIO 1.2
[2016-08-31 05:39] LABS: PARTIAL THROMBOPLASTIN TIME 38.3 Sec (25.0-35.0)
[2016-08-31] MEDS: PIPER-TAZO 3.375 GM IV (PMX) 100 ML IVPB SCH ×4 (05:39→23:54)
[2016-08-31 05:53] LABS: HEMATOCRIT 23.3 % (42.0-52.0); HEMOGLOBIN 7.3 g/dl (14.0-18.0); MEAN CORPUSCULAR HEMOGLOBIN 30.2 pg (29.0-33.0); MEAN CORPUSCULAR HGB CONC 31.3 g/dl (32.0-37.0); MEAN CORPUSCULAR VOLUME 96.3 fl (82.0-101.0); MEAN PLATELET VOLUME 11.2 fl (7.4-10.4); PLATELET COUNT 153 10^3/UL (140-415); RED BLOOD COUNT 2.42 10^6/ul (4.70-6.10); RED CELL DISTRIBUTION WIDTH 14.4 % (11.5-14.5); WHITE BLOOD COUNT 9.5 10^3/ul (4.8-10.8)
[2016-08-31 05:59] LABS: POTASSIUM 3.2 mmol/L (3.5-5.1)
[2016-08-31 06:02] LABS: CREATININE 0.74 mg/dl (0.61-1.24)
[2016-08-31 06:03] LABS: CALCIUM 7.8 mg/dl (8.4-10.2)
[2016-08-31 06:16] LABS: Allen Test ACCEPTAB; Arterial Base Excess -0.2 mmol/L (-3.0-3); Arterial COHb 0.3 % (0.0-3.0); Arterial Fraction of Oxyhgb 98.8 % (93.0-99.0); Arterial MetHb 0.1 % (0.0-1.5); Arterial Total Hemglobin 10.2 g/dl (12.0-18.0); MODE VENT - AC
[2016-08-31] MEDS: POTASSIUM CHLORIDE 50 ML IVPB PRN ×3 (06:21→10:53)
--- NOTE | 2016-08-31 06:22 | PN ---
DATE: REFERRING PHYSICIAN: . Thank you for asking me to see the patient with you. HISTORY OF PRESENT ILLNESS: Patient is 41 years old admitted to ICU, had a cardiopulmonary arrest, multiple shock intubation, code STEMI, acute respiratory failure, hyperglycemia, anoxic encephalopathy. The patient is unresponsive. CURRENT MEDICATIONS: Include: 1. Morphine sulfate 2 mg every 3 hours as needed. 2. Protonix 40 mg once a day. 3. Tylenol 650 mg as needed. 4. Potassium chloride as needed. 5. Aspirin 81 mg once a day. 6. Plavix 75 mg once a day. 7. Lipitor 20 mg once a day. PHYSICAL EXAMINATION: GENERAL: On exam today, the patient does not follow any verbal commands, has not responded for painful stimuli. Cranial nerve II: Pupils equal on both sides. Cranial nerves III, IV and : Extraocular muscles intact for doll's maneuver. Cranial nerves V and VII: Intact corneal reflex. Cranial nerves VIII through XII: Could not assess. MOTOR: Slight movement for painful stimuli. Sensation decreased for glove and for light touch and temperature. HEART: Regular rate and rhythm. LUNGS: Equal breath sounds. ABDOMEN: Soft, relaxed, nondistended. No tenderness. ASSESSMENT AND PLAN 1. The patient is 41 years old status post anoxic encephalopathy. EEG done, showed generalized slowing consistent with a history of underlying acute encephalopathy. No epileptiform discharge or seizure activity is recorded. 2. Status post cardiopulmonary arrest. 3. ST elevation myocardial infarction. 4. Status post gastrointestinal bleed. 5. Respiratory failure, intubation. 6. Cardiogenic shock. 7. Recurrent fever with intravenous antibiotic. 8. Hyperglycemia. The patient under sliding scale insulin. 9. Stroke prophylaxis in which the patient is on aspirin and Plavix. Again, thank you for asking me to see the patient with you. Dictated By: DAVID ISLAS/PEÑA Conf#: [id number] DID#: [id number] NEDA
[2016-08-31] MEDS: CLOPIDOGREL 75 MG TAB NGT SCH (08:20)
[2016-08-31] MEDS: PANTOPRAZOLE 40 MG INJ IV SCH ×2 (08:20→21:01)
[2016-08-31] MEDS: ASPIRIN 81 MG TAB PO SCH (08:20)
[2016-08-31] MEDS: HEPARIN 5,000 UNIT/0.5 ML VIAL SC SCH ×2 (08:22→21:03)
[2016-08-31 09:28] LABS: EOSINOPHILS # 0.4 10^3/ul (0.0-0.5); LYMPHOCYTES # 2.1 10^3/ul (0.8-2.9); MONOCYTE # 0.3 10^3/ul (0.3-0.9); NEUTROPHIL # 5.9 10^3/ul (1.6-7.5)
--- NOTE | 2016-08-31 10:22 | PN ---
Date/Time of Note Date/Time of Note DATE: 08/31/16 TIME: 10:20 Assessment/Plan VTE Prophylaxis VTE Prophylaxis Intervention: heparin Lines/Catheters IV Catheter Type (from Nrsg): Central Line Central line still needed: Yes (IV access, pt is on shock) Urinary Cath still in place: Yes Reason Cath still needed: other (indicate) (strict I/O, pt intubated on ventilator ) Assessment/Plan Assessment/Plan 1. Cardiac arrest, revived in ER after several rounds of CPR and multiple shocks due to STEMI s/p Cardiac cath 2. STEMI (ST elevation myocardial infarction) s/p Angioplasty - continue current meds, cardiology following 3. Cardiogenic Shock s/p IABP, off pressors now 4. acute GI bleeding resolved, Hb stable 5. Acute Resp Failure due to cardigenic shock intubated on ventilator pulmonary has been following to manage ventilator 6. Hyperglycemia-reactive s/p insulin gtt 7. Anoxic encephalopathy EEG showed slowing activity c/w acute encephalopathy, neurology following PPx- Heparin GI prophylaxis: Protonix Exam/Review of Systems Vital Signs Vitals Vital Signs Date Time Temp Pulse Resp B/P Pulse Ox O2 Delivery O2 Flow Rate FiO2 08/31/16 10:00 97 17 100/63 100 Mechanical Ventilator 08/31/16 09:25 30 08/31/16 08:00 98.9 Intake and Output 08/30/16 08/30/16 08/31/16 15:00 23:00 07:00 Intake Total 1200 ml 1170 ml 1194 ml Output Total 1300 ml 530 ml 410 ml Balance -100 ml 640 ml 784 ml Exam pt intubated on ventilator, off fentanyl drip now, waking up ET Tube in place, no discharge trachea midline Supple Bilatera coarse BS, No wheezing, no crackles S1 S2 tachycardia, no murmur soft, NT, BS+ Jacobo catheter in place uncooperative for neuro exam due to sedation no skin rash Results Result Diagram: 08/31/16 0430 08/31/16 0430 Results 24 hrs Laboratory Tests Test 08/31/16 04:30 08/31/16 05:00 White Blood Count 9.5 Red Blood Count 2.42 L Hemoglobin 7.3 L Hematocrit 23.3 L Mean Corpuscular Volume 96.3 Mean Corpuscular Hemoglobin 30.2 Mean Corpuscular Hemoglobin Concent 31.3 L Red Cell Distribution Width 14.4 Platelet Count 153 # Mean Platelet Volume 11.2 H Neutrophils % 62.0 Band Neutrophils % 8.0 H Lymphocytes % 22.0 Reactive Lymphocytes % 1.0 Monocytes % 3.0 Eosinophils % 4.0 Neutrophils # 5.9 Lymphocytes # 2.1 Monocytes # 0.3 Eosinophils # 0.4 Prothrombin Time 15.0 H Prothrombin Time Ratio 1.2 INR International Normalized Ratio 1.17 Activated Partial Thromboplast Time 38.3 H Sodium Level 142 Potassium Level 3.2 L Chloride Level 112 H Carbon Dioxide Level 25 Anion Gap 8 Blood Urea Nitrogen 10 Creatinine 0.74 Glucose Level 100 Calcium Level 7.8 L Magnesium Level 2.0 Blood Gas Specimen Source Blood arterial Arterial Blood Date Drawn 08/31/2016 5:50:45 AM Arterial Blood pH (Temp corrected) 7.426 Arterial Blood pCO2 (Temp correct) 37.3 Arterial Blood pO2 (Temp corrected) 298.5 H Arterial Blood HCO3 24.0 Arterial Blood Base Excess -0.2 Arterial Blood Oxygen Saturation 99.2 H Gregory Test ACCEPTAB Arterial Blood Gas Puncture Site Right Radial Arterial Blood Carboxyhemoglobin 0.3 Arterial Blood Methemoglobin 0.1 Oxyhemoglobin Percent 98.8 Total Hemoglobin 10.2 L Blood Gas Temperature 37.0 Blood Gas Respiration Rate 16.0 Blood Gas Actual Respiration Rate 22 Blood Gas Modality VENT - AC FiO2 30.0 Blood Gas Tidal Volume 600.0 Blood Gas Low PEEP Setting 5.0 Blood Gas Inspiratory Pressure 29.0 Blood Gas Critical Value Read Back Trae PEDRO RN Blood Gas Notified Whom Blood Gas Notified Time 08/31/2016 6:15:39 AM Medications Medications Current Medications Propofol 100 ml @ 3 mls/hr Q12H IV Last administered on 08/31/16 03:07; Admin Dose 3 MLS/HR; Start 08/25/16 at 05:00 Piperacillin Sod/ Tazobactam Sod 100 ml @ 200 mls/hr Q6 IVPB Last administered on 08/31/16 05:39; Admin Dose 200 MLS/HR; Start 08/25/16 at 06:00 Phenylephrine HCl/ Dextrose (Jorge-Syneph/D5W) 500 ml @ 75 mls/hr TITRATE IV Last administered on 08/25/16 18:21; Admin Dose 37.5 MLS/HR; Start 08/25/16 at 06:30 Pantoprazole (Protonix Iv) 40 mg BID IV Last administered on 08/31/16 08:20; Admin Dose 40 MG; Start 08/25/16 at 11:00 Morphine Sulfate 2 mg 2 mg Q3H PRN IV PAIN LEVEL 6-10 Last administered on 08/31 00:10; Admin Dose 2 MG; Start 08/25/16 at 11:00 Norepinephrine 16 mg/Dextrose 500 ml @ 1.87 mls/hr TITRATE IV Last administered on 08/27/16 19:40; Admin Dose 20 MLS/HR; Start 08/25/16 at 15:00 Sodium Chloride 1,000 ml @ 75 mls/hr [id number] IV Last administered on 04:38; Admin Dose 75 MLS/HR; Start 08/25/16 at 18:00 Fentanyl 100 ml @ 2.5 mls/hr TITRATE IV Last administered on 08/30/16 03:11; Admin Dose 10 MLS/HR; Start 08/25/16 at 19:00 Midazolam HCl (Versed) 50 ml @ 1 mls/hr TITRATE IV Last administered on 09:56; Admin Dose 8 MLS/HR; Start 08/25/16 at 19:00 Acetaminophen (Tylenol Liquid) 650 mg Q4H PRN GTB PAIN AND OR ELEVATED TEMP Last administered on 08/31/16 00:07; Admin Dose 650 MG; Start 08/25/16 at 20:00 Aspirin (Aspirin) 81 mg DAILY PO Last administered on 08/31/16 08:20; Admin Dose 81 MG; Start 08/27/16 at 09:00 Miscellaneous Information 1 ea NOTE XX ; Start 08/26/16 at 17:00 Clopidogrel Bisulfate (plaVIX) 75 mg DAILY NGT Last administered on 08/31/16 08:20; Admin Dose 75 MG; Start 08/28/16 at 09:00 Atorvastatin Calcium (Lipitor) 20 mg HS NGT Last administered on 08/30/16 20: 38; Admin Dose 20 MG; Start 08/28/16 at 21:00 Heparin Sodium (Porcine) (Heparin (5000 Units/0.5 ml)) 5,000 unit BID SC Last administered on 08/31/16 08:22; Admin Dose 5,000 UNIT; Start 08/30/16 at 11:00 JULIENNE FARMER MD Aug 31, 2016 10:22
--- NOTE | 2016-08-31 11:19 | RADRPT ---
PROCEDURE: XR Chest. CLINICAL INDICATION: Shortness of breath. TECHNIQUE: Single frontal view. COMPARISON: 08/29/2016. FINDINGS: The endotracheal tube, left subclavian vein catheter, and nasogastric tube remain in satisfactory po sition. There is a moderate right pleural effusion and moderate atelectasis throughout the right svitlana ng. The left lung is clear and there is no left pleural effusion. The heart size is normal. There is no pneumothorax. IMPRESSION: 1. No change from 08/29/2016. RPTAT: QQ .Gabe Harris MD, MD Date Time Electronically viewed and signed by .Gabe Harris MD, MD on 08/31/2016 11:18 .R/
--- NOTE | 2016-08-31 12:06 | PN ---
Date/Time of Note Date/Time of Note DATE: 08/31/16 TIME: 12:05 Assessment/Plan VTE Prophylaxis VTE Prophylaxis Intervention: SCD's Lines/Catheters IV Catheter Type (from [facility]): Central Line Central line still needed: No Urinary Cath still in place: Yes Reason Cath still needed: urinary retention Assessment/Plan Assessment/Plan 1. Status post cardiac arrest. 2. Ventricular fibrillation arrest. 3. Anterolateral ST elevation myocardial infarction. 4. Status post PTCA of the LAD and left circumflex artery. 5. Possible transient gastrointestinal bleed, currently has resolved. 6. Hypoxemic anoxic brain injury and encephalopathy, hypoxemic respiratory failure, status post intubation on the vent. 7. Shock, probably multifactorial secondary to cardiomyopathy, cardiogenic as well as septic. 8. Recurrent fever, etiology unclear, blood culture has been ordered. 9. Hyperglycemia has improved. 10 Moderate Right effusion 11. Anemia RECOMMENDATION: -I would continue with the aspirin and add Plavix to his regimen. -Progressive decreased HCT - if further drops, may need to hold antiplatelets, but would try to continue and possibly support wiht prbc -Iv lasix prn -We will continue with the ICU care. Continue with close monitoring. Subjective 24 Hr Interval Summary Free Text/Dictation the patient with some responsiveness Exam/Review of Systems Vital Signs Vitals Vital Signs Date Time Temp Pulse Resp B/P Pulse Ox O2 Delivery O2 Flow Rate FiO2 08/31/16 11:00 99 16 118/74 100 Mechanical Ventilator 08/31/16 09:25 30 08/31/16 08:00 98.9 Intake and Output 08/30/16 08/30/16 08/31/16 15:00 23:00 07:00 Intake Total 1200 ml 1170 ml 1194 ml Output Total 1300 ml 530 ml 410 ml Balance -100 ml 640 ml 784 ml Results Result Diagram: 08/31/16 0430 08/31/16 0430 Results 24 hrs Laboratory Tests Test 08/31/16 04:30 08/31/16 05:00 White Blood Count 9.5 Red Blood Count 2.42 L Hemoglobin 7.3 L Hematocrit 23.3 L Mean Corpuscular Volume 96.3 Mean Corpuscular Hemoglobin 30.2 Mean Corpuscular Hemoglobin Concent 31.3 L Red Cell Distribution Width 14.4 Platelet Count 153 # Mean Platelet Volume 11.2 H Neutrophils % 62.0 Band Neutrophils % 8.0 H Lymphocytes % 22.0 Reactive Lymphocytes % 1.0 Monocytes % 3.0 Eosinophils % 4.0 Neutrophils # 5.9 Lymphocytes # 2.1 Monocytes # 0.3 Eosinophils # 0.4 Prothrombin Time 15.0 H Prothrombin Time Ratio 1.2 INR International Normalized Ratio 1.17 Activated Partial Thromboplast Time 38.3 H Sodium Level 142 Potassium Level 3.2 L Chloride Level 112 H Carbon Dioxide Level 25 Anion Gap 8 Blood Urea Nitrogen 10 Creatinine 0.74 Glucose Level 100 Calcium Level 7.8 L Magnesium Level 2.0 Blood Gas Specimen Source Blood arterial Arterial Blood Date Drawn 08/31/2016 5:50:45 AM Arterial Blood pH (Temp corrected) 7.426 Arterial Blood pCO2 (Temp correct) 37.3 Arterial Blood pO2 (Temp corrected) 298.5 H Arterial Blood HCO3 24.0 Arterial Blood Base Excess -0.2 Arterial Blood Oxygen Saturation 99.2 H Gregory Test ACCEPTAB Arterial Blood Gas Puncture Site Right Radial Arterial Blood Carboxyhemoglobin 0.3 Arterial Blood Methemoglobin 0.1 Oxyhemoglobin Percent 98.8 Total Hemoglobin 10.2 L Blood Gas Temperature 37.0 Blood Gas Respiration Rate 16.0 Blood Gas Actual Respiration Rate 22 Blood Gas Modality VENT - AC FiO2 30.0 Blood Gas Tidal Volume 600.0 Blood Gas Low PEEP Setting 5.0 Blood Gas Inspiratory Pressure 29.0 Blood Gas Critical Value Read Back Trae PEDRO RN Blood Gas Notified Whom Blood Gas Notified Time 08/31/2016 6:15:39 AM Medications Medications Current Medications Propofol 100 ml @ 3 mls/hr Q12H IV Last administered on 08/31/16 03:07; Admin Dose 3 MLS/HR; Start 08/25/16 at 05:00 Piperacillin Sod/ Tazobactam Sod 100 ml @ 200 mls/hr Q6 IVPB Last administered on 08/31/16 11:59; Admin Dose 200 MLS/HR; Start 08/25/16 at 06:00 Phenylephrine HCl/ Dextrose (Jorge-Syneph/D5W) 500 ml @ 75 mls/hr TITRATE IV Last administered on 08/25/16 18:21; Admin Dose 37.5 MLS/HR; Start 08/25/16 at 06:30 Pantoprazole (Protonix Iv) 40 mg BID IV Last administered on 08/31/16 08:20; Admin Dose 40 MG; Start 08/25/16 at 11:00 Morphine Sulfate 2 mg 2 mg Q3H PRN IV PAIN LEVEL 6-10 Last administered on 08/31 00:10; Admin Dose 2 MG; Start 08/25/16 at 11:00 Norepinephrine 16 mg/Dextrose 500 ml @ 1.87 mls/hr TITRATE IV Last administered on 08/27/16 19:40; Admin Dose 20 MLS/HR; Start 08/25/16 at 15:00 Sodium Chloride 1,000 ml @ 75 mls/hr [id number] IV Last administered on 04:38; Admin Dose 75 MLS/HR; Start 08/25/16 at 18:00 Fentanyl 100 ml @ 2.5 mls/hr TITRATE IV Last administered on 08/30/16 03:11; Admin Dose 10 MLS/HR; Start 08/25/16 at 19:00 Midazolam HCl (Versed) 50 ml @ 1 mls/hr TITRATE IV Last administered on 09:56; Admin Dose 8 MLS/HR; Start 08/25/16 at 19:00 Acetaminophen (Tylenol Liquid) 650 mg Q4H PRN GTB PAIN AND OR ELEVATED TEMP Last administered on 08/31/16 00:07; Admin Dose 650 MG; Start 08/25/16 at 20:00 Aspirin (Aspirin) 81 mg DAILY PO Last administered on 08/31/16 08:20; Admin Dose 81 MG; Start 08/27/16 at 09:00 Miscellaneous Information 1 ea NOTE XX ; Start 08/26/16 at 17:00 Clopidogrel Bisulfate (plaVIX) 75 mg DAILY NGT Last administered on 08/31/16 08:20; Admin Dose 75 MG; Start 08/28/16 at 09:00 Atorvastatin Calcium (Lipitor) 20 mg HS NGT Last administered on 08/30/16 20: 38; Admin Dose 20 MG; Start 08/28/16 at 21:00 Heparin Sodium (Porcine) (Heparin (5000 Units/0.5 ml)) 5,000 unit BID SC Last administered on 08/31/16 08:22; Admin Dose 5,000 UNIT; Start 08/30/16 at 11:00 SHAILESH PABLO MD Aug 31, 2016 12:06
--- NOTE | 2016-08-31 12:38 | CONS ---
Date/Time of Note Date/Time of Note DATE: 08/31/16 TIME: 12:30 Assessment/Plan Assessment/Plan Additional Assessment/Plan Ventilator settings; AC of 18, tidal volume 600, PEEP of 5, 30% FiO2. Assessment recommendations; 1. Patient admitted with acute [place] status post emergent angioplasty status post hypothermia protocol with significant improvement in mental status. 2. Right pleural effusion, precluding weaning from ventilator. 3. Anemia. 4. Mild thrombus cytopenia. Schedule ultrasound-guided thoracentesis on the right side. Transfuse 1 unit packed RBC. Patient likely could be weaned from ventilator in the next 24 hours. I did have a very detailed discussion with the patient's uncle at bedside and answered all his questions. Consultation Date/Type/Reason Admit Date/Time Aug 25, 2016 at 04:41 Initial Consult Date 08/25/16 Type of Consultation: Pulmonary/critical care 24 HR Interval Summary Free Text/Dictation Patient condition is significantly improved. He is now much more awake alert and follows commands. Has remained hemodynamically stable. General exam; young male, orally intubated, awake. Currently in no distress. Exam/Review of Systems Vital Signs Vitals Vital Signs Date Time Temp Pulse Resp B/P Pulse Ox O2 Delivery O2 Flow Rate FiO2 08/31/16 11:00 99 16 118/74 100 Mechanical Ventilator 08/31/16 09:25 30 08/31/16 08:00 98.9 Intake and Output 08/30/16 08/30/16 08/31/16 15:00 23:00 07:00 Intake Total 1200 ml 1170 ml 1194 ml Output Total 1300 ml 530 ml 410 ml Balance -100 ml 640 ml 784 ml Exam HEENT exam is; supple neck, no JVD. No lymphadenopathy. Midline trachea. No thyromegaly. Orally intubated. Pupils are midsize and reactive to light. Patient has good dentition. Chest examination [place]: Decreased breath sounds right lung with clear left lung examination. S1-S2 audible, no murmurs. Regular rhythm. Abdomen examination; soft, no organomegaly. Nontender. Bowel sounds audible. Extremity exam is; no peripheral edema. Pulses 1+ bilaterally. BACTERIOLOGIST FOOD exam is; patient is awake alert follows commands and moves all 4 extremities. Results Result Diagram: 08/31/16 0430 08/31/16 0430 Results 24 hrs Laboratory Tests Test 08/31/16 04:30 08/31/16 05:00 White Blood Count 9.5 Red Blood Count 2.42 L Hemoglobin 7.3 L Hematocrit 23.3 L Mean Corpuscular Volume 96.3 Mean Corpuscular Hemoglobin 30.2 Mean Corpuscular Hemoglobin Concent 31.3 L Red Cell Distribution Width 14.4 Platelet Count 153 # Mean Platelet Volume 11.2 H Neutrophils % 62.0 Band Neutrophils % 8.0 H Lymphocytes % 22.0 Reactive Lymphocytes % 1.0 Monocytes % 3.0 Eosinophils % 4.0 Neutrophils # 5.9 Lymphocytes # 2.1 Monocytes # 0.3 Eosinophils # 0.4 Prothrombin Time 15.0 H Prothrombin Time Ratio 1.2 INR International Normalized Ratio 1.17 Activated Partial Thromboplast Time 38.3 H Sodium Level 142 Potassium Level 3.2 L Chloride Level 112 H Carbon Dioxide Level 25 Anion Gap 8 Blood Urea Nitrogen 10 Creatinine 0.74 Glucose Level 100 Calcium Level 7.8 L Magnesium Level 2.0 Blood Gas Specimen Source Blood arterial Arterial Blood Date Drawn 08/31/2016 5:50:45 AM Arterial Blood pH (Temp corrected) 7.426 Arterial Blood pCO2 (Temp correct) 37.3 Arterial Blood pO2 (Temp corrected) 298.5 H Arterial Blood HCO3 24.0 Arterial Blood Base Excess -0.2 Arterial Blood Oxygen Saturation 99.2 H Gregory Test ACCEPTAB Arterial Blood Gas Puncture Site Right Radial Arterial Blood Carboxyhemoglobin 0.3 Arterial Blood Methemoglobin 0.1 Oxyhemoglobin Percent 98.8 Total Hemoglobin 10.2 L Blood Gas Temperature 37.0 Blood Gas Respiration Rate 16.0 Blood Gas Actual Respiration Rate 22 Blood Gas Modality VENT - AC FiO2 30.0 Blood Gas Tidal Volume 600.0 Blood Gas Low PEEP Setting 5.0 Blood Gas Inspiratory Pressure 29.0 Blood Gas Critical Value Read Back Trae PEDRO RN Blood Gas Notified Whom Blood Gas Notified Time 08/31/2016 6:15:39 AM Medications Medications Current Medications Propofol 100 ml @ 3 mls/hr Q12H IV Last administered on 08/31/16 03:07; Admin Dose 3 MLS/HR; Start 08/25/16 at 05:00 Piperacillin Sod/ Tazobactam Sod 100 ml @ 200 mls/hr Q6 IVPB Last administered on 08/31/16 11:59; Admin Dose 200 MLS/HR; Start 08/25/16 at 06:00 Phenylephrine HCl/ Dextrose (Jorge-Syneph/D5W) 500 ml @ 75 mls/hr TITRATE IV Last administered on 08/25/16 18:21; Admin Dose 37.5 MLS/HR; Start 08/25/16 at 06:30 Pantoprazole (Protonix Iv) 40 mg BID IV Last administered on 08/31/16 08:20; Admin Dose 40 MG; Start 08/25/16 at 11:00 Morphine Sulfate 2 mg 2 mg Q3H PRN IV PAIN LEVEL 6-10 Last administered on 08/31 00:10; Admin Dose 2 MG; Start 08/25/16 at 11:00 Norepinephrine 16 mg/Dextrose 500 ml @ 1.87 mls/hr TITRATE IV Last administered on 08/27/16 19:40; Admin Dose 20 MLS/HR; Start 08/25/16 at 15:00 Sodium Chloride 1,000 ml @ 75 mls/hr [id number] IV Last administered on 04:38; Admin Dose 75 MLS/HR; Start 08/25/16 at 18:00 Fentanyl 100 ml @ 2.5 mls/hr TITRATE IV Last administered on 08/30/16 03:11; Admin Dose 10 MLS/HR; Start 08/25/16 at 19:00 Midazolam HCl (Versed) 50 ml @ 1 mls/hr TITRATE IV Last administered on 09:56; Admin Dose 8 MLS/HR; Start 08/25/16 at 19:00 Acetaminophen (Tylenol Liquid) 650 mg Q4H PRN GTB PAIN AND OR ELEVATED TEMP Last administered on 08/31/16 00:07; Admin Dose 650 MG; Start 08/25/16 at 20:00 Aspirin (Aspirin) 81 mg DAILY PO Last administered on 08/31/16 08:20; Admin Dose 81 MG; Start 08/27/16 at 09:00 Miscellaneous Information 1 ea NOTE XX ; Start 08/26/16 at 17:00 Clopidogrel Bisulfate (plaVIX) 75 mg DAILY NGT Last administered on 08/31/16 08:20; Admin Dose 75 MG; Start 08/28/16 at 09:00 Atorvastatin Calcium (Lipitor) 20 mg HS NGT Last administered on 08/30/16 20: 38; Admin Dose 20 MG; Start 08/28/16 at 21:00 Heparin Sodium (Porcine) (Heparin (5000 Units/0.5 ml)) 5,000 unit BID SC Last administered on 08/31/16 08:22; Admin Dose 5,000 UNIT; Start 08/30/16 at 11:00 TUYET SCHWARTZ Aug 31, 2016 12:38
--- NOTE | 2016-08-31 15:25 | RADRPT ---
PROCEDURE: XR Chest. CLINICAL INDICATION: Check central line position. TECHNIQUE: Single frontal view. COMPARISON: 08/31/2016. FINDINGS: The endotracheal tube and nasogastric tube remain in satisfactory position. There is a left subclav jeovany vein catheter with the tip in the upper superior vena cava. There is air space disease in the r ight lung and a moderate right pleural effusion, unchanged. The left lung is clear and there is no left pleural effusion. The heart size is normal. There is no pneumothorax. IMPRESSION: 1. Left subclavian vein catheter tip in the upper superior vena cava. 2. No change from the prior study done earlier the same day. RPTAT: QQ .Gabe Harris MD, MD Date Time Electronically viewed and signed by .Gabe Harris MD, MD on 08/31/2016 15:25 .R/
[2016-08-31] MEDS ORDERED: LIDOCAINE 1% (MPF) 5 ML VIAL ONE (18:36)
--- NOTE | 2016-08-31 18:40 | RADRPT ---
PROCEDURE: Ultrasound guided thoracentesis CLINICAL INDICATION: Pleural effusion TECHNIQUE: Multiple sonographic images were obtained through the patient's chest. A site in the renato mccoy's right lower chest was selected and marked ink pen. The area was prepped and draped in the u sual sterile fashion. The skin and subcutaneous tissues were anesthetized with 10 cc of 1% lidocain e. A a 6-Syriac 10 cm long thoracentesis needle was advanced into the pleural space and the introduc er was connected to a vacuum drainage system. A total of 1000 cc of frankly bloody fluid was draine d. The patient tolerated the procedure well. The specimen was sent for laboratory evaluation. COMPARISON: Radiograph dated 08/31/2016 at 1515 hours FINDINGS: Anechoic fluid visualized in the chest cavity on ultrasound. IMPRESSION: 1. Successful ultrasound-guided thoracentesis without immediate complication. RPTAT: QQ .Vinny Breen MD, MD Date Time Electronically viewed and signed by .Vinny Breen MD, on 08/31/2016 18:40 .M/
[2016-08-31] MEDS: NS + KCL 20 MEQ 1,000 ML IV SCH (19:55)
--- NOTE | 2016-08-31 20:33 | RADRPT ---
PROCEDURE: Portable chest x-ray. CLINICAL INDICATION: Post right thoracentesis. TECHNIQUE: Portable AP view of the chest. COMPARISON: 08/31/2016. FINDINGS: An endotracheal tube terminates approximately 3.9 cm above the maia. A nasogastric tube terminates in the stomach. Decreased hazy opacification of the right mid and lower lung. Mild hazy opacificati on of the left lung base is noted The cardiac silhouette is not enlarged. There is no pneumothorax. IMPRESSION: 1. Endotracheal tube tip approximately 3.9 cm above the maia. 2. Nasogastric tube tip in the stomach. 3. No pneumothorax post right thoracentesis. 4. Decreased hazy opacification of the right mid and lower lung, likely representing decreased righ t pleural fluid. Underlying right lung edema, pneumonia, or atelectasis is not excluded. 5. Mild hazy opacification of the left lung base, possibly representing edema, atelectasis, and/or a small left pleural effusion. RPTAT: HTAR .Marc Frank MD, Date Time Electronically viewed and signed by .Marc Frank MD, on 08/31/2016 20:33 .R/
[2016-08-31] MEDS: ATORVASTATIN 20 MG TAB NGT SCH (21:01)
[2016-09-01] VITALS (29 sets, daily range): BP systolic 98–160; BP diastolic 53–105; PULSE 73–106; RESP 16–58
--- NOTE | 2016-09-01 00:16 | PN ---
DATE: REFERRING PHYSICIAN: Dr. Dyer HISTORY OF PRESENT ILLNESS: The patient is a 41-year-old male who had cardiopulmonary arrest, multi ple shocks, intubation, code STEMI, respiratory failure, hyperglycemia, anoxic encephalopathy. The patient is unresponsive. CURRENT MEDICATIONS: Include: 1. Morphine sulfate 2 mg every 3 hours as needed. 2. Lipitor 20 mg once a day. 3. Plavix 75 mg once a day. 4. Aspirin 81 mg once a day. 5. Potassium chloride as needed. 6. Tylenol 650 mg as needed. 7. Protonix 40 mg once a day. PHYSICAL EXAMINATION: GENERAL: On exam today, the patient does not follow any verbal command. He does not respond to daysi nful stimuli. CRANIAL NERVES: Cranial nerve II: His pupils with slightly sluggish reaction to light. Cranial ne rves III, IV and : Extraocular muscles with weak movement for doll's maneuver. Cranial nerves V and VII: Weak cornea reflex. Cranial nerve VIII through XII: Could not assess. MOTOR: Slight movement for painful stimuli. Sensation decreased for glove and sock area for light touch and temperature. COORDINATION: Could not assess. HEART: Regular rate and rhythm. LUNGS: Equal breath sounds. ABDOMEN: Soft, relaxed, nondistended. No tenderness. ASSESSMENT AND PLAN: 1. This is a patient 41 years old who is post anoxic encephalopathy. 2. Status post cardiopulmonary arrest. 3. Status post ST-elevation myocardial infarction with cardiogenic shock. 4. Respiratory failure, intubation. 5. Recurrent fever with intravenous antibiotic. 6. Hyperglycemia. 7. Stroke prophylaxis in the form of aspirin and Plavix. Again, thank you for asking me to see the patient with you. Dictated By: DAVID ISLAS/PEÑA Conf#: [id number] DID#: [id number]
[2016-09-01] MEDS: PROPOFOL 100 ML IV SCH (01:56)
[2016-09-01 04:30] LABS: ADD SCAN DIFF NO
[2016-09-01 04:34] LABS: BASOPHILS % 0.2 % (0.0-2.0); EOSINOPHILS # 0.6 10^3/ul (0.0-0.5); EOSINOPHILS % 7.3 % (0.0-7.0); HEMATOCRIT 25.1 % (42.0-52.0); LYMPHOCYTES # 1.8 10^3/ul (0.8-2.9); LYMPHOCYTES % 21.5 % (15.0-51.0); MEAN CORPUSCULAR HEMOGLOBIN 30.2 pg (29.0-33.0); MEAN CORPUSCULAR HGB CONC 31.9 g/dl (32.0-37.0); MEAN CORPUSCULAR VOLUME 94.7 fl (82.0-101.0); MONOCYTE # 0.7 10^3/ul (0.3-0.9); MONOCYTES % 8.5 % (0.0-11.0); NEUTROPHIL # 5.1 10^3/ul (1.6-7.5); NEUTROPHILS % 61.5 % (39.0-77.0); PLATELET COUNT 206 10^3/UL (140-415); RED BLOOD COUNT 2.65 10^6/ul (4.70-6.10); RED CELL DISTRIBUTION WIDTH 14.6 % (11.5-14.5); WHITE BLOOD COUNT 8.3 10^3/ul (4.8-10.8)
[2016-09-01 04:49] LABS: INR 1.18; PROTIME 15.1 Sec (12.2-14.2); PT RATIO 1.2
[2016-09-01 04:50] LABS: PARTIAL THROMBOPLASTIN TIME 38.5 Sec (25.0-35.0)
[2016-09-01 04:51] LABS: ALBUMIN 2.2 g/dl (3.3-4.9); POTASSIUM 3.6 mmol/L (3.5-5.1)
[2016-09-01 04:53] LABS: CREATININE 0.64 mg/dl (0.61-1.24)
[2016-09-01 04:54] LABS: ALBUMIN/GLOBULIN RATIO 0.81; BILIRUBIN,INDIRECT 0.2 mg/dl (0-1.1); BILIRUBIN,TOTAL 0.2 mg/dl (0.2-1.3); TOTAL PROTEIN 4.9 g/dl (6.1-8.1)
[2016-09-01 04:55] LABS: CALCIUM 8.1 mg/dl (8.4-10.2); PHOSPHORUS 3.5 mg/dl (2.5-4.9)
[2016-09-01] MEDS: POTASSIUM CHLORIDE 50 ML IVPB PRN ×2 (05:59→07:10)
[2016-09-01] MEDS: PIPER-TAZO 3.375 GM IV (PMX) 100 ML IVPB SCH ×4 (05:59→23:57)
[2016-09-01] MEDS: ASPIRIN 81 MG TAB PO SCH (08:28)
[2016-09-01] MEDS: PANTOPRAZOLE 40 MG INJ IV SCH ×2 (08:28→20:49)
[2016-09-01] MEDS: CLOPIDOGREL 75 MG TAB NGT SCH (08:28)
[2016-09-01] MEDS: HEPARIN 5,000 UNIT/0.5 ML VIAL SC SCH ×2 (08:29→20:59)
--- NOTE | 2016-09-01 09:01 | PN ---
Date/Time of Note Date/Time of Note DATE: 09/01/16 TIME: 08:55 Assessment/Plan VTE Prophylaxis VTE Prophylaxis Intervention: heparin Lines/Catheters IV Catheter Type (from Nrs): Peripheral IV Urinary Cath still in place: Yes Reason Cath still needed: other (indicate) (strict I/o, Intubated on ventilator ) Assessment/Plan Assessment/Plan 1. Cardiac arrest, revived in ER after several rounds of CPR and multiple shocks due to STEMI s/p Cardiac cath 2. STEMI (ST elevation myocardial infarction) s/p Angioplasty - continue current meds, cardiology following 3. Cardiogenic Shock s/p IABP, off pressors now 4. acute GI bleeding resolved, Hb stable 5. Acute Resp Failure due to cardigenic shock intubated on ventilator pulmonary has been following to manage ventilator , on CPAP trial 6. Moderate pleural effusion s/p Thoracentesis Right side 1 L removed 6. Hyperglycemia-reactive s/p insulin gtt 7. R/o Anoxic encephalopathy EEG showed slowing activity c/w acute encephalopathy, neurology following PPx- Heparin GI prophylaxis: Protonix Continue current care Subjective 24 Hr Interval Summary Free Text/Dictation s/p Thoracentesis 1 L removed, Remains intubated, BP stable, Pulmonary has been following , on CPAP trial today Exam/Review of Systems Vital Signs Vitals Vital Signs Date Time Temp Pulse Resp B/P Pulse Ox O2 Delivery O2 Flow Rate FiO2 09/01/16 07:03 84 16 100 30 09/01/16 07:00 110/74 Mechanical Ventilator 09/01/16 04:00 99.4 Intake and Output 08/31/16 08/31/16 09/01/16 15:00 23:00 07:00 Intake Total 1190 ml 1528.4 ml 1244.0 ml Output Total 425 ml 440 ml 450 ml Balance 765 ml 1088.4 ml 794.0 ml Exam Constitutional: non-verbal, on ventilator, intubated ENMT: intubated Respiratory: bilateral coarse BS Cardiovascular: regular rate and rhythm Gastrointestinal: soft, NT, ND, BS+ Musculoskeletal: nl extremities to inspection, + galicia catheter Results Result Diagram: 09/01/16 0415 09/01/16 0415 Results 24 hrs Laboratory Tests Test 09/01/16 04:15 White Blood Count 8.3 Red Blood Count 2.65 L Hemoglobin 8.0 L Hematocrit 25.1 L Mean Corpuscular Volume 94.7 Mean Corpuscular Hemoglobin 30.2 Mean Corpuscular Hemoglobin Concent 31.9 L Red Cell Distribution Width 14.6 H Platelet Count 206 # Mean Platelet Volume 11.0 H Neutrophils % 61.5 Lymphocytes % 21.5 Monocytes % 8.5 Eosinophils % 7.3 H Basophils % 0.2 Nucleated Red Blood Cells % 0.0 Neutrophils # 5.1 Lymphocytes # 1.8 Monocytes # 0.7 Eosinophils # 0.6 H Basophils # 0.0 Nucleated Red Blood Cells # 0.0 Prothrombin Time 15.1 H Prothrombin Time Ratio 1.2 INR International Normalized Ratio 1.18 Activated Partial Thromboplast Time 38.5 H Sodium Level 141 Potassium Level 3.6 Chloride Level 112 H Carbon Dioxide Level 24 Anion Gap 9 Blood Urea Nitrogen 10 Creatinine 0.64 Glucose Level 99 Calcium Level 8.1 L Phosphorus Level 3.5 Magnesium Level 2.0 Total Bilirubin 0.2 Direct Bilirubin 0.00 Indirect Bilirubin 0.2 Aspartate Amino Transf (AST/SGOT) 60 H Alanine Aminotransferase (ALT/SGPT) 61 Alkaline Phosphatase 185 H Total Protein 4.9 L Albumin 2.2 L Globulin 2.70 Albumin/Globulin Ratio 0.81 Medications Medications Current Medications Propofol 100 ml @ 3 mls/hr Q12H IV Last administered on 09/01/16 01:56; Admin Dose 10.8 MLS/HR; Start 08/25/16 at 05:00 Piperacillin Sod/ Tazobactam Sod 100 ml @ 200 mls/hr Q6 IVPB Last administered on 09/01/16 05:59; Admin Dose 200 MLS/HR; Start 08/25/16 at 06:00 Phenylephrine HCl/ Dextrose (Jorge-Syneph/D5W) 500 ml @ 75 mls/hr TITRATE IV Last administered on 08/25/16 18:21; Admin Dose 37.5 MLS/HR; Start 08/25/16 at 06:30 Pantoprazole (Protonix Iv) 40 mg BID IV Last administered on 09/01/16 08:28; Admin Dose 40 MG; Start 08/25/16 at 11:00 Morphine Sulfate 2 mg 2 mg Q3H PRN IV PAIN LEVEL 6-10 Last administered on 08/31 18:00; Admin Dose 2 MG; Start 08/25/16 at 11:00 Norepinephrine 16 mg/Dextrose 500 ml @ 1.87 mls/hr TITRATE IV Last administered on 08/27/16 19:40; Admin Dose 20 MLS/HR; Start 08/25/16 at 15:00 Fentanyl 100 ml @ 2.5 mls/hr TITRATE IV Last administered on 08/30/16 03:11; Admin Dose 10 MLS/HR; Start 08/25/16 at 19:00 Midazolam HCl (Versed) 50 ml @ 1 mls/hr TITRATE IV Last administered on 09:56; Admin Dose 8 MLS/HR; Start 08/25/16 at 19:00 Acetaminophen (Tylenol Liquid) 650 mg Q4H PRN GTB PAIN AND OR ELEVATED TEMP Last administered on 08/31/16 16:58; Admin Dose 650 MG; Start 08/25/16 at 20:00 Aspirin (Aspirin) 81 mg DAILY PO Last administered on 09/01/16 08:28; Admin Dose 81 MG; Start 08/27/16 at 09:00 Miscellaneous Information 1 ea NOTE XX ; Start 08/26/16 at 17:00 Clopidogrel Bisulfate (plaVIX) 75 mg DAILY NGT Last administered on 09/01/16 08:28; Admin Dose 75 MG; Start 08/28/16 at 09:00 Atorvastatin Calcium (Lipitor) 20 mg HS NGT Last administered on 08/31/16 21: 01; Admin Dose 20 MG; Start 08/28/16 at 21:00 Heparin Sodium (Porcine) 5000 unit 5,000 unit BID SC Last administered on 08:29; Admin Dose 5,000 UNIT; Start 08/30/16 at 11:00 Potassium Chloride/Sodium Chloride (NS-KCl 20 Meq) 1,000 ml @ 75 mls/hr [id number] IV Last administered on 08/31/16 19:55; Admin Dose 75 MLS/HR; Start at 20:00 JULIENNE FARMER MD Sep 01, 2016 09:01
[2016-09-01 09:18] LABS: AADO2 Arterial 17.9 mmHg (7.0-24.0); Allen Test ACCEPTAB; Arterial COHb 0.3 % (0.0-3.0); Arterial Fraction of Oxyhgb 97.8 % (93.0-99.0); Arterial HCO3 21.9 mmol/L (22.0-26.0); Arterial MetHb 0.4 % (0.0-1.5); Arterial Total Hemglobin 9.7 g/dl (12.0-18.0); MODE VENT - AC
[2016-09-01] MEDS: NS + KCL 20 MEQ 1,000 ML IV SCH ×2 (09:20→10:18)
--- NOTE | 2016-09-01 10:45 | CONS ---
Date/Time of Note Date/Time of Note DATE: 09/01/16 TIME: 10:42 Consult Date/Type/Reason Admit Date/Time Aug 25, 2016 at 04:41 Initial Consult Date 08/25/16 Type of Consultation: Pulmonary/critical care Subjective Patient is awake alert oriented on mechanical ventilation Status post thoracentesis 1 L from right lung Objective Vital Signs Date Time Temp Pulse Resp B/P Pulse Ox O2 Delivery O2 Flow Rate FiO2 09/01/16 10:00 88 19 121/77 100 Mechanical Ventilator 09/01/16 09:45 30 09/01/16 08:00 99.0 Intake and Output 08/31/16 08/31/16 09/01/16 15:00 23:00 07:00 Intake Total 1190 ml 1528.4 ml 1244.0 ml Output Total 425 ml 440 ml 510 ml Balance 765 ml 1088.4 ml 734.0 ml Exam PHYSICAL EXAMINATION GENERAL: Well-nourished well-developed Persian gentleman intubated on mechanical ventilation VITAL SIGNS: see below. HEENT: Pupils equal, round, and reactive to light. CARDIAC: S1, S2, tachycardia. CHEST: Diminished air entry bilaterally. ABDOMEN: Mildly distended. Bowel sounds present no guarding or rebound EXTREMITIES: No cyanosis, clubbing or edema. NEUROLOGIC: No focal deficits. Results/Medications Result Diagram: 09/01/16 0415 09/01/16 0415 Results 24 hrs Chest x-ray pulmonary edema Laboratory Tests Test 09/01/16 04:15 09/01/16 08:52 White Blood Count 8.3 Red Blood Count 2.65 L Hemoglobin 8.0 L Hematocrit 25.1 L Mean Corpuscular Volume 94.7 Mean Corpuscular Hemoglobin 30.2 Mean Corpuscular Hemoglobin Concent 31.9 L Red Cell Distribution Width 14.6 H Platelet Count 206 # Mean Platelet Volume 11.0 H Neutrophils % 61.5 Lymphocytes % 21.5 Monocytes % 8.5 Eosinophils % 7.3 H Basophils % 0.2 Nucleated Red Blood Cells % 0.0 Neutrophils # 5.1 Lymphocytes # 1.8 Monocytes # 0.7 Eosinophils # 0.6 H Basophils # 0.0 Nucleated Red Blood Cells # 0.0 Prothrombin Time 15.1 H Prothrombin Time Ratio 1.2 INR International Normalized Ratio 1.18 Activated Partial Thromboplast Time 38.5 H Sodium Level 141 Potassium Level 3.6 Chloride Level 112 H Carbon Dioxide Level 24 Anion Gap 9 Blood Urea Nitrogen 10 Creatinine 0.64 Glucose Level 99 Calcium Level 8.1 L Phosphorus Level 3.5 Magnesium Level 2.0 Total Bilirubin 0.2 Direct Bilirubin 0.00 Indirect Bilirubin 0.2 Aspartate Amino Transf (AST/SGOT) 60 H Alanine Aminotransferase (ALT/SGPT) 61 Alkaline Phosphatase 185 H Total Protein 4.9 L Albumin 2.2 L Globulin 2.70 Albumin/Globulin Ratio 0.81 Blood Gas Specimen Source Blood arterial Arterial Blood Date Drawn 09/01/2016 9:01:00 AM Arterial Blood pH (Temp corrected) 7.426 Arterial Blood pCO2 (Temp correct) 34.1 L Arterial Blood pO2 (Temp corrected) 155.9 H Arterial Blood HCO3 21.9 L Arterial Blood Base Excess -2.0 Arterial Blood Oxygen Saturation 98.5 H Gregory Test ACCEPTAB Arterial Blood Gas Puncture Site Right Radial Arterial Blood Carboxyhemoglobin 0.3 Arterial Blood Methemoglobin 0.4 Blood Gas A-a O2 Differential 17.9 Oxyhemoglobin Percent 97.8 Total Hemoglobin 9.7 L Blood Gas Temperature 37.0 Blood Gas Respiration Rate 16.0 Blood Gas Actual Respiration Rate 31 Blood Gas Modality VENT - AC FiO2 30.0 Blood Gas Tidal Volume 600.0 Blood Gas Low PEEP Setting 5.0 Blood Gas Notified Whom JLD Blood Gas Notified Time 09/01/2016 9:18:40 AM Medications Current Medications Propofol 100 ml @ 3 mls/hr Q12H IV Last administered on 09/01/16 01:56; Admin Dose 10.8 MLS/HR; Start 08/25/16 at 05:00 Piperacillin Sod/ Tazobactam Sod 100 ml @ 200 mls/hr Q6 IVPB Last administered on 09/01/16 05:59; Admin Dose 200 MLS/HR; Start 08/25/16 at 06:00 Phenylephrine HCl/ Dextrose (Jorge-Syneph/D5W) 500 ml @ 75 mls/hr TITRATE IV Last administered on 08/25/16 18:21; Admin Dose 37.5 MLS/HR; Start 08/25/16 at 06:30 Pantoprazole (Protonix Iv) 40 mg BID IV Last administered on 09/01/16 08:28; Admin Dose 40 MG; Start 08/25/16 at 11:00 Morphine Sulfate 2 mg 2 mg Q3H PRN IV PAIN LEVEL 6-10 Last administered on 08/31 18:00; Admin Dose 2 MG; Start 08/25/16 at 11:00 Norepinephrine 16 mg/Dextrose 500 ml @ 1.87 mls/hr TITRATE IV Last administered on 08/27/16 19:40; Admin Dose 20 MLS/HR; Start 08/25/16 at 15:00 Fentanyl 100 ml @ 2.5 mls/hr TITRATE IV Last administered on 08/30/16 03:11; Admin Dose 10 MLS/HR; Start 08/25/16 at 19:00 Midazolam HCl (Versed) 50 ml @ 1 mls/hr TITRATE IV Last administered on 09:56; Admin Dose 8 MLS/HR; Start 08/25/16 at 19:00 Acetaminophen (Tylenol Liquid) 650 mg Q4H PRN GTB PAIN AND OR ELEVATED TEMP Last administered on 08/31/16 16:58; Admin Dose 650 MG; Start 08/25/16 at 20:00 Aspirin (Aspirin) 81 mg DAILY PO Last administered on 09/01/16 08:28; Admin Dose 81 MG; Start 08/27/16 at 09:00 Miscellaneous Information 1 ea NOTE XX ; Start 08/26/16 at 17:00 Clopidogrel Bisulfate (plaVIX) 75 mg DAILY NGT Last administered on 09/01/16 08:28; Admin Dose 75 MG; Start 08/28/16 at 09:00 Atorvastatin Calcium (Lipitor) 20 mg HS NGT Last administered on 08/31/16 21: 01; Admin Dose 20 MG; Start 08/28/16 at 21:00 Heparin Sodium (Porcine) 5000 unit 5,000 unit BID SC Last administered on 08:29; Admin Dose 5,000 UNIT; Start 08/30/16 at 11:00 Potassium Chloride/Sodium Chloride (NS-KCl 20 Meq) 1,000 ml @ 75 mls/hr [id number] IV Last administered on 09/01/16 10:18; Admin Dose 75 MLS/HR; Start at 20:00 Assessment/Plan Chief Complaint/Hosp Course Assessment 1. Status post cardiac arrest and hypothermia protocol 2. Hypoxemic respiratory failure 3. Coronary artery disease status post Anterolateral ST elevation myocardial infarction. Status post PTCA of the LAD and left circumflex artery 4. Resolving encephalopathy 5. Anemia likely multifactorial Plan 1. CPAP weaning trial 2. Incentive spirometry 3. Cardiology recommendations 4. Speech therapy evaluation in a.m. Disposition Continue ICU care Problems: OSMANY ESPINOZA MD, [facility] Sep 01, 2016 10:44
[2016-09-01 12:02] LABS: AADO2 Arterial 94.6 mmHg (7.0-24.0); Allen Test ACCEPTAB; Arterial Base Excess -2.9 mmol/L (-3.0-3); Arterial COHb 0.3 % (0.0-3.0); Arterial MetHb 0.2 % (0.0-1.5); Arterial Total Hemglobin 10.2 g/dl (12.0-18.0); Blood Gas PS 10; MODE VENT - CPAP
--- NOTE | 2016-09-01 18:38 | RADRPT ---
PROCEDURE: US Abdomen. CLINICAL INDICATION: RUQ abd pain. TECHNIQUE: Multiple real-time images were acquired of the patient's abdomen and retroperitoneum ut ilizing a high resolution transducer. COMPARISON: None FINDINGS: Visualized portions of the pancreatic head and proximal body are unremarkable. The liver is normal in size and contour without evidence of intrapelvic biliary dilatation. The liver is enlarged measur ing 19.2 cm in length. The gallbladder is normal without evidence of cholelithiasis, pericholecystic fluid or gallbladder w all thickening. The technologist reports a negative sonographic Berrios's sign. The common bile du ct measures 4.1 mm in maximal dimension. No free fluid is identified. The right kidney is unremarkable without evidence of hydronephrosis or mass. Right kidney measures 12.5 cm in length. IMPRESSION: The liver is enlarged measuring 19.2 cm in length. Otherwise, no significant abnormalities are ident ified. RPTAT:AAJJ Physician Gabriele Date Time Electronically viewed and signed by Physician Gabriele on 09/01/2016 18:38 /
[2016-09-01] MEDS: ATORVASTATIN 20 MG TAB NGT SCH (20:42)
--- NOTE | 2016-09-01 22:41 | PN ---
DATE: 09/01/2016 CARDIOLOGY FOLLOWUP SUBJECTIVE: Discussed with the staff, discussed with the patient's family member. The patient has been successfully extubated. He complains of chest wall tenderness and abdominal discomfort. No pa lpitation. Blood pressure has remained stable. MEDICATIONS: Reviewed. PHYSICAL EXAMINATION: VITAL SIGNS: Temperature 99, T-max is 100.5. Temperature on the 16th at night was 102.3 and 102.7. Respiration rate of 20, saturating 100% on 30% oxygen. HEENT: Normocephalic, atraumatic. CARDIOVASCULAR: Regular rate and rhythm. PULMONARY: With diffuse mild wheezes, rhonchi. GASTROINTESTINAL: Soft. Mild tenderness to palpation in the right side. EXTREMITIES: With trivial edema. NEUROLOGIC: Awake, responds appropriately. PSYCHIATRIC: Appears to be calm. LABORATORY DATA: Shows sodium 141, potassium 3.6, BUN of 10, creatinine of 0.64, glucose of 99. Al bumin is 2.2. WBC of 8.3, hemoglobin 8, platelets of 206. ASSESSMENT AND PLAN: 1. Status post cardiac arrest secondary to ventricular fibrillation arrest. 2. Anterolateral ST elevation myocardial infarction. 3. Status post percutaneous transluminal coronary angioplasty of the left anterior descending and l eft circumflex artery with known chronic total occlusion of the right coronary artery. 4. Possible gastrointestinal bleed and melena. 5. Abdominal discomfort. 6. Recurrent fever, etiology unclear. 7. History of hypertension. 8. History of dyslipidemia. 9. History of poor compliance. 10. History of smoking. RECOMMENDATIONS: I will stop the Plavix due to severe anemia requiring transfusion. Aspirin will b e continued, however though. Transfusion to be given p.r.n. We will start a beta velia once his blood pressure is more stable. I will order ultrasound of the abdomen and gallbladder as well given his abdominal discomfort and recurrent pain. Thank you for this referral. Will continue to follow. Dictated By: DENNIS THORNE MD AV/PEÑA Conf#: [id number] DID#: [id number] CC: JAMEEL HERNANDEZ MD; ____;*EndCC*
[2016-09-01] MEDS: ALBUTEROL/IPRATROPIUM (NEB) 3 ML AMP HHN SCH (22:46)
[2016-09-02] VITALS (25 sets, daily range): BP systolic 94–137; BP diastolic 47–109; PULSE 82–121; RESP 12–48
[2016-09-02] MEDS ORDERED: LEVALBUTEROL (NEB) 0.63 MG/3 ML AMP HHN PRN (02:00)
[2016-09-02] MEDS: NS + KCL 20 MEQ 1,000 ML IV SCH ×4 (02:00→20:00)
[2016-09-02] MEDS ORDERED: LORAZEPAM 2 MG INJ IV ONE (02:00)
[2016-09-02 02:11] LABS: ADD SCAN DIFF NO
[2016-09-02] MEDS: ALBUTEROL/IPRATROPIUM (NEB) 3 ML AMP HHN SCH ×4 (02:13→20:30)
[2016-09-02 02:15] LABS: BASOPHILS % 0.3 % (0.0-2.0); EOSINOPHILS # 0.1 10^3/ul (0.0-0.5); EOSINOPHILS % 1.1 % (0.0-7.0); HEMATOCRIT 27.7 % (42.0-52.0); HEMOGLOBIN 9.1 g/dl (14.0-18.0); LYMPHOCYTES # 2.4 10^3/ul (0.8-2.9); MEAN CORPUSCULAR HEMOGLOBIN 30.4 pg (29.0-33.0); MEAN CORPUSCULAR HGB CONC 32.9 g/dl (32.0-37.0); MEAN CORPUSCULAR VOLUME 92.6 fl (82.0-101.0); MEAN PLATELET VOLUME 10.4 fl (7.4-10.4); MONOCYTE # 0.9 10^3/ul (0.3-0.9); MONOCYTES % 7.6 % (0.0-11.0); NEUTROPHIL # 8.5 10^3/ul (1.6-7.5); NEUTROPHILS % 70.5 % (39.0-77.0); PLATELET COUNT 271 10^3/UL (140-415); RED BLOOD COUNT 2.99 10^6/ul (4.70-6.10); RED CELL DISTRIBUTION WIDTH 14.2 % (11.5-14.5)
[2016-09-02 02:23] LABS: INR 1.1; PROTIME 14.2 Sec (12.2-14.2); PT RATIO 1.1
[2016-09-02 02:24] LABS: PARTIAL THROMBOPLASTIN TIME 34.3 Sec (25.0-35.0)
[2016-09-02 02:28] LABS: LYMPHOCYTES % 19.7 % (15.0-51.0)
[2016-09-02 02:39] LABS: CALCIUM 8.3 mg/dl (8.4-10.2); CREATININE 0.62 mg/dl (0.61-1.24); POTASSIUM 4.3 mmol/L (3.5-5.1)
[2016-09-02] MEDS: PIPER-TAZO 3.375 GM IV (PMX) 100 ML IVPB SCH (06:04)
[2016-09-02 07:43] LABS: AADO2 Arterial 127.3 mmHg (7.0-24.0); Allen Test ACCEPTAB; Arterial Base Excess 0.6 mmol/L (-3.0-3); Arterial COHb 0.3 % (0.0-3.0); Arterial Fraction of Oxyhgb 93.7 % (93.0-99.0); Arterial HCO3 23.2 mmol/L (22.0-26.0); Arterial MetHb 0.2 % (0.0-1.5); Arterial Total Hemglobin 11.6 g/dl (12.0-18.0); MODE NASAL CANNULA
[2016-09-02] MEDS: ASPIRIN 81 MG TAB PO SCH (08:34)
[2016-09-02] MEDS: PANTOPRAZOLE 40 MG INJ IV SCH ×2 (08:34→21:09)
[2016-09-02] MEDS: HEPARIN 5,000 UNIT/0.5 ML VIAL SC SCH ×2 (08:35→21:10)
--- NOTE | 2016-09-02 09:23 | PN ---
Date/Time of Note Date/Time of Note DATE: 09/02/16 TIME: 09:16 Assessment/Plan VTE Prophylaxis VTE Prophylaxis Intervention: heparin Lines/Catheters IV Catheter Type (from Nrs): Peripheral IV Urinary Cath still in place: Yes Reason Cath still needed: other (indicate) (strict I/o, pt was intubated on ventilator ) Assessment/Plan Assessment/Plan 1. Cardiac arrest, revived in ER after several rounds of CPR and multiple shocks due to STEMI s/p Cardiac cath 2. STEMI (ST elevation myocardial infarction) s/p Angioplasty - continue current meds, cardiology following 3. Cardiogenic Shock s/p IABP, off pressors now 4. acute GI bleeding resolved, Hb stable 5. Acute Resp Failure due to cardigenic shock , s/p VDRF, now extubated 6. Moderate pleural effusion s/p Thoracentesis Right side 1 L removed 6. Hyperglycemia-reactive s/p insulin gtt 7. R/o Anoxic encephalopathy EEG showed slowing activity c/w acute encephalopathy, neurology following NS 500 cc bolus, then increase current IVF rate to 100 cc/hr CXR ordered for tomorrow AM PPx- Heparin GI prophylaxis: Protonix Subjective 24 Hr Interval Summary Free Text/Dictation s/p extubation, BP labile today Exam/Review of Systems Vital Signs Vitals Vital Signs Date Time Temp Pulse Resp B/P Pulse Ox O2 Delivery O2 Flow Rate FiO2 09/02/16 08:39 89 22 97 Nasal Cannula 2.0 09/02/16 07:00 98/63 09/02/16 04:00 97.7 09/01/16 09:45 30 Intake and Output 09/01/16 09/01/16 09/02/16 15:00 23:00 07:00 Intake Total 750 ml 700 ml Output Total 395 ml 655 ml 2750 ml Balance 355 ml 45 ml -2750 ml Exam Constitutional: alert, awake, extubated communicative passed swallow Respiratory: bilateral decreased BS, Bibasilar rales Cardiovascular: regular rate and rhythm Gastrointestinal: soft, NT, ND, BS+ Musculoskeletal: nl extremities to inspection, + galicia catheter Results Result Diagram: 09/02/16 0206 09/02/16 020 Results 24 hrs Laboratory Tests Test 09/01/16 11:45 09/02/16 02:06 09/02/16 05:00 Blood Gas Specimen Source Blood arterial Blood arterial Arterial Blood Date Drawn 09/01/2016 11:45:58 AM 09/02/2016 5:28:37 AM Arterial Blood pH (Temp corrected) 7.372 7.497 H Arterial Blood pCO2 (Temp correct) 38.8 30.6 L Arterial Blood pO2 (Temp corrected) 73.7 L 72.3 L Arterial Blood HCO3 22.0 23.2 Arterial Blood Base Excess -2.9 0.6 Arterial Blood Oxygen Saturation 93.5 L 94.2 L Gregory Test ACCEPTAB ACCEPTAB Arterial Blood Gas Puncture Site Right Radial Right Radial Arterial Blood Carboxyhemoglobin 0.3 0.3 Arterial Blood Methemoglobin 0.2 0.2 Blood Gas A-a O2 Differential 94.6 H 127.3 H Oxyhemoglobin Percent 93.0 93.7 Total Hemoglobin 10.2 L 11.6 L Blood Gas Temperature 37.0 37.0 Blood Gas Actual Respiration Rate 42 Blood Gas Modality VENT - CPAP NASAL CANNULA FiO2 30.0 33.0 Blood Gas Low PEEP Setting 5.0 Blood Gas Pressure Support 10 Blood Gas Notified Whom GERALDINE MCKNIGHT Blood Gas Notified Time 09/01/2016 12:02:34 PM 09/02/2016 5:33:13 AM White Blood Count 12.0 #H Red Blood Count 2.99 L Hemoglobin 9.1 L Hematocrit 27.7 L Mean Corpuscular Volume 92.6 Mean Corpuscular Hemoglobin 30.4 Mean Corpuscular Hemoglobin Concent 32.9 Red Cell Distribution Width 14.2 Platelet Count 271 # Mean Platelet Volume 10.4 Neutrophils % 70.5 Lymphocytes % 19.7 Monocytes % 7.6 Eosinophils % 1.1 Basophils % 0.3 Nucleated Red Blood Cells % 0.0 Neutrophils # 8.5 H Lymphocytes # 2.4 Monocytes # 0.9 Eosinophils # 0.1 Basophils # 0.0 Nucleated Red Blood Cells # 0.0 Prothrombin Time 14.2 Prothrombin Time Ratio 1.1 INR International Normalized Ratio 1.10 Activated Partial Thromboplast Time 34.3 Sodium Level 137 Potassium Level 4.3 Chloride Level 108 Carbon Dioxide Level 22 Anion Gap 11 Blood Urea Nitrogen 6 L Creatinine 0.62 Glucose Level 89 Calcium Level 8.3 L Magnesium Level 1.9 Lipase 350 H Medications Medications Current Medications Piperacillin Sod/ Tazobactam Sod 100 ml @ 200 mls/hr Q6 IVPB Last administered on 09/02/16t 06:04; Admin Dose 200 MLS/HR; Start 08/25/16 at 06:00 Phenylephrine HCl/ Dextrose (Jorge-Syneph/D5W) 500 ml @ 75 mls/hr TITRATE IV Last administered on 08/25/16 18:21; Admin Dose 37.5 MLS/HR; Start 08/25/16 at 06:30 Pantoprazole (Protonix Iv) 40 mg BID IV Last administered on 09/02/16 08:34; Admin Dose 40 MG; Start 08/25/16 at 11:00 Morphine Sulfate 2 mg 2 mg Q3H PRN IV PAIN LEVEL 6-10 Last administered on 08/31 18:00; Admin Dose 2 MG; Start 08/25/16 at 11:00 Norepinephrine 16 mg/Dextrose 500 ml @ 1.87 mls/hr TITRATE IV Last administered on 08/27/16 19:40; Admin Dose 20 MLS/HR; Start 08/25/16 at 15:00 Fentanyl 100 ml @ 2.5 mls/hr TITRATE IV Last administered on 08/30/16 03:11; Admin Dose 10 MLS/HR; Start 08/25/16 at 19:00 Midazolam HCl (Versed) 50 ml @ 1 mls/hr TITRATE IV Last administered on 09:56; Admin Dose 8 MLS/HR; Start 08/25/16 at 19:00 Acetaminophen (Tylenol Liquid) 650 mg Q4H PRN GTB PAIN AND OR ELEVATED TEMP Last administered on 08/31/16 16:58; Admin Dose 650 MG; Start 08/25/16 at 20:00 Aspirin (Aspirin) 81 mg DAILY PO Last administered on 09/02/16 08:34; Admin Dose 81 MG; Start 08/27/16 at 09:00 Miscellaneous Information 1 ea NOTE XX ; Start 08/26/16 at 17:00 Atorvastatin Calcium (Lipitor) 20 mg HS NGT Last administered on 08/31/16 21: 01; Admin Dose 20 MG; Start 08/28/16 at 21:00 Heparin Sodium (Porcine) 5000 unit 5,000 unit BID SC Last administered on 08:35; Admin Dose 5,000 UNIT; Start 08/30/16 at 11:00 Potassium Chloride/Sodium Chloride (NS-KCl 20 Meq) 1,000 ml @ 75 mls/hr [id number] IV Last administered on 09/02/16t 02:00; Admin Dose 75 MLS/HR; Start at 20:00 JULINENE FARMER MD Sep 02, 2016 09:23
[2016-09-02] MEDS ORDERED: SOD CHLORIDE 0.9% 500 ML IV ONE (09:30)
--- NOTE | 2016-09-02 09:34 | CONS ---
Date/Time of Note Date/Time of Note DATE: 09/02/16 TIME: 09:32 Assessment/Plan Assessment/Plan Additional Assessment/Plan Assessment recommendations; 1. Patient admitted for acute MS status post emergent PTCA no successfully extubated doing very well overall. 2. Status post right thoracentesis. 3. Possibly some element of aspiration pneumonia. Next Continue current treatment. But discontinue Zosyn. Obtain follow-up chest x- ray. Consultation Date/Type/Reason Admit Date/Time Aug 25, 2016 at 04:41 Initial Consult Date 08/25/16 Type of Consultation: Pulmonary/critical care 24 HR Interval Summary Free Text/Dictation Patient condition stable. Remains awake alert. Denies any shortness of breath , chest pain, coughing, wheezing. General exam; young male, awake alert currently in no distress. Exam/Review of Systems Vital Signs Vitals Vital Signs Date Time Temp Pulse Resp B/P Pulse Ox O2 Delivery O2 Flow Rate FiO2 09/02/16 08:39 89 22 97 Nasal Cannula 2.0 09/02/16 07:00 98/63 09/02/16 04:00 97.7 09/01/16 09:45 30 Intake and Output 09/01/16 09/01/16 09/02/16 15:00 23:00 07:00 Intake Total 750 ml 700 ml Output Total 395 ml 655 ml 2750 ml Balance 355 ml 45 ml -2750 ml Exam HEENT exam; supple neck, no JVD. No lymphadenopathy. Midline trachea. Patient is good dentition. Pharynx is clear. Pupils are midsize and reactive to light. Chest exam; clear to auscultation. S1-S2 audible, no murmurs. Regular rhythm. Abdomen exam is; soft, no organomegaly. Bowel sounds audible. Nondistended. Extremity exam; no peripheral edema. Pulses 2+ bilaterally. CARPENTER FORM exam; no focal deficit. Results Result Diagram: 09/02/16 0206 09/02/16 0206 Results 24 hrs Laboratory Tests Test 09/01/16 11:45 09/02/16 02:06 09/02/16 05:00 Blood Gas Specimen Source Blood arterial Blood arterial Arterial Blood Date Drawn 09/01/2016 11:45:58 AM 09/02/2016 5:28:37 AM Arterial Blood pH (Temp corrected) 7.372 7.497 H Arterial Blood pCO2 (Temp correct) 38.8 30.6 L Arterial Blood pO2 (Temp corrected) 73.7 L 72.3 L Arterial Blood HCO3 22.0 23.2 Arterial Blood Base Excess -2.9 0.6 Arterial Blood Oxygen Saturation 93.5 L 94.2 L Gregory Test ACCEPTAB ACCEPTAB Arterial Blood Gas Puncture Site Right Radial Right Radial Arterial Blood Carboxyhemoglobin 0.3 0.3 Arterial Blood Methemoglobin 0.2 0.2 Blood Gas A-a O2 Differential 94.6 H 127.3 H Oxyhemoglobin Percent 93.0 93.7 Total Hemoglobin 10.2 L 11.6 L Blood Gas Temperature 37.0 37.0 Blood Gas Actual Respiration Rate 42 Blood Gas Modality VENT - CPAP NASAL CANNULA FiO2 30.0 33.0 Blood Gas Low PEEP Setting 5.0 Blood Gas Pressure Support 10 Blood Gas Notified Whom GERALDINE MCKNIGHT Blood Gas Notified Time 09/01/2016 12:02:34 PM 09/02/2016 5:33:13 AM White Blood Count 12.0 #H Red Blood Count 2.99 L Hemoglobin 9.1 L Hematocrit 27.7 L Mean Corpuscular Volume 92.6 Mean Corpuscular Hemoglobin 30.4 Mean Corpuscular Hemoglobin Concent 32.9 Red Cell Distribution Width 14.2 Platelet Count 271 # Mean Platelet Volume 10.4 Neutrophils % 70.5 Lymphocytes % 19.7 Monocytes % 7.6 Eosinophils % 1.1 Basophils % 0.3 Nucleated Red Blood Cells % 0.0 Neutrophils # 8.5 H Lymphocytes # 2.4 Monocytes # 0.9 Eosinophils # 0.1 Basophils # 0.0 Nucleated Red Blood Cells # 0.0 Prothrombin Time 14.2 Prothrombin Time Ratio 1.1 INR International Normalized Ratio 1.10 Activated Partial Thromboplast Time 34.3 Sodium Level 137 Potassium Level 4.3 Chloride Level 108 Carbon Dioxide Level 22 Anion Gap 11 Blood Urea Nitrogen 6 L Creatinine 0.62 Glucose Level 89 Calcium Level 8.3 L Magnesium Level 1.9 Lipase 350 H Medications Medications Current Medications Piperacillin Sod/ Tazobactam Sod 100 ml @ 200 mls/hr Q6 IVPB Last administered on 09/02/16t 06:04; Admin Dose 200 MLS/HR; Start 08/25/16 at 06:00 Phenylephrine HCl/ Dextrose (Jorge-Syneph/D5W) 500 ml @ 75 mls/hr TITRATE IV Last administered on 08/25/16 18:21; Admin Dose 37.5 MLS/HR; Start 08/25/16 at 06:30 Pantoprazole (Protonix Iv) 40 mg BID IV Last administered on 09/02/16 08:34; Admin Dose 40 MG; Start 08/25/16 at 11:00 Morphine Sulfate 2 mg 2 mg Q3H PRN IV PAIN LEVEL 6-10 Last administered on 08/31 18:00; Admin Dose 2 MG; Start 08/25/16 at 11:00 Norepinephrine/ Dextrose (Levophed/D5W) 500 ml @ 1.87 mls/hr TITRATE IV Last administered on 08/27/16 19:40; Admin Dose 20 MLS/HR; Start 08/25/16 at 15:00 Acetaminophen (Tylenol Liquid) 650 mg Q4H PRN GTB PAIN AND OR ELEVATED TEMP Last administered on 08/31/16 16:58; Admin Dose 650 MG; Start 08/25/16 at 20:00 Aspirin (Aspirin) 81 mg DAILY PO Last administered on 09/02/16 08:34; Admin Dose 81 MG; Start 08/27/16 at 09:00 Miscellaneous Information 1 ea NOTE XX ; Start 08/26/16 at 17:00 Atorvastatin Calcium (Lipitor) 20 mg HS NGT Last administered on 08/31/16 21: 01; Admin Dose 20 MG; Start 08/28/16 at 21:00 Heparin Sodium (Porcine) 5000 unit 5,000 unit BID SC Last administered on 08:35; Admin Dose 5,000 UNIT; Start 08/30/16 at 11:00 Potassium Chloride/Sodium Chloride 1,000 ml @ 100 mls/hr Q10H IV Last administered on 09/02/16 02:00; Admin Dose 75 MLS/HR; Start 08/31/16 at 20:00 Sodium Chloride (NS) 500 ml @ 500 mls/hr Q1H ONCE IV ; Start 09/02/16 at 09:30 ; Stop 09/02/16 at 10:29 TUYET SCHWARTZ Sep 02, 2016 09:34
[2016-09-02] MEDS: morphine 2 MG INJ IV PRN ×2 (09:35→23:47)
--- NOTE | 2016-09-02 12:05 | RADRPT ---
PROCEDURE: XR Chest 1 View. CLINICAL INDICATION: Shortness of breath, respiratory failure TECHNIQUE: AP view of the chest was obtained. COMPARISON: August 31, 2016 FINDINGS: The heart size is within normal limits. Calcified atherosclerosis is noted in the aorta. Central pu lmonary vascular congestion and interstitial prominence is seen in both lungs. Patchy infiltrates t hroughout the right lung have moderately increased. Patchy perihilar infiltrates at the left lung h ave also mildly increased. Small right pleural effusion has developed. Osseous structures are intac t. IMPRESSION: Calcified atherosclerosis in the aorta. Interval increase in patchy infiltrates throughout the right lung and development of small right ple ural effusion. Interval increase in patchy perihilar infiltrates throughout the left lung. Central pulmonary vascular congestion and interstitial prominence in both lungs. RPTAT: AA .Loki Carrasco MD, Date Time Electronically viewed and signed by .Loki Carrasco MD, on 09/02/2016 12:05 .P/
[2016-09-02] MEDS ORDERED: MAGNESIUM SULFATE 2 GM/50 ML 50 ML IVPB ONE (15:00)
--- NOTE | 2016-09-02 15:44 | PN ---
DATE: 09/02/2016 CARDIOLOGY FOLLOWUP SUBJECTIVE: Discussed with the staff, with family member. The patient is still complaining chest w all tenderness on palpitation, breathing and coughing. Does complain of dizziness, ____sitting. He remains in sinus rhythm. MEDICATIONS: Reviewed. PHYSICAL EXAMINATION: VITAL SIGNS: Temperature 97.9, heart rate 86, blood pressure 120/70, respiration rate of 20, satura ting 99%. HEENT: Normocephalic, atraumatic. Pupils are equal. CARDIOVASCULAR: Regular rate and rhythm. PULMONARY: Anteriorly with no wheezes heard, mild rhonchi. GASTROINTESTINAL: Soft, nontender. CHEST: Positive for chest wall tenderness. EXTREMITIES: No significant edema. NEUROLOGIC: Awake and alert, responds appropriately. PSYCHIATRIC: Appears to be calm. LABORATORY: WBC of 12, hemoglobin 9.1, platelets of 271. Sodium 137, potassium 4.3, BUN of 6, crea tinine 0.62, glucose of 89. Lipase is 350. Abdominal ultrasound shows liver enlarged. Gallbladder is normal. ASSESSMENT AND PLAN: 1. Status post cardiopulmonary arrest. 2. Ventricular fibrillation arrest associated with anterolateral ST elevation myocardial infarction , status post angioplasty of the left anterior descending and left circumflex artery. 3. Possible gastrointestinal bleed, currently stable. 4. Recurrent fever has resolved. 5. Dyslipidemia. 6. History of smoking. RECOMMENDATIONS: Continue with the current cardiac care. I will add Coreg to his regimen. Monitor his electrolytes and adjust it accordingly. Replace the magnesium again. Dictated By: DENNIS DUBOSE/PEÑA Conf#: [id number] DID#: [id number]
[2016-09-02] MEDS: ATORVASTATIN 20 MG TAB NGT SCH (21:09)
--- NOTE | 2016-09-02 21:57 | PN ---
DATE: HISTORY OF PRESENT ILLNESS: The patient is a 41-year-old status post cardiopulmonary arrest, ST-lesia vation myocardial infarction, angioplasty, cardiogenic shock, acute GI bleed, acute respiratory fail ure, moderate pleural effusion, thoracentesis, anoxic encephalopathy. CURRENT MEDICATIONS: Include: 1. Protonix 40 mg once a day. 2. Tylenol 650 mg as needed. 3. Potassium chloride as needed. 4. Aspirin 81 mg once a day. 5. Plavix 75 mg once a day. 6. Lipitor 20 mg once a day. 7. Morphine sulfate 2 mg every 3 hours as needed. PHYSICAL EXAMINATION: GENERAL: On exam today, the patient does not follow any verbal commands, does not respond to painfu l stimuli. CRANIAL NERVES: Cranial nerve II: His pupils with sluggish reaction to light. Cranial nerves III, IV and : Extraocular muscle movement with doll's maneuver. Cranial nerves V and VII: Intact co rneal reflex. Cranial nerves VIII through XII: Could not assess. MOTOR: Slight movement for painful stimuli. Sensation decreased for glove and sock area for light touch and temperature. COORDINATION: [id number] test intact. HEART: Regular rate and rhythm. LUNGS: Equal breath sounds. ABDOMEN: Soft, relaxed, nondistended. No tenderness. ASSESSMENT AND PLAN: 1. The patient is 41 years old with a past anoxic encephalopathy. 2. Status post cardiopulmonary arrest. 3. Status post ST-elevation myocardial infarction with cardiogenic shock. 4. Respiratory failure, status post intubation. 5. Recurrent fever with intravenous antibiotics. 6. Hyperglycemia. Follow up the patient with sliding scale insulin and Accu-Chek. 7. Stroke prophylaxis. Keep the patient on aspirin as well as the Plavix. Again, thank you for asking me to see the patient with you. Dictated By: DAVID ISLAS/PEÑA Conf#: [id number] DID#: [id number]
[2016-09-03] VITALS (22 sets, daily range): BP systolic 98–149; BP diastolic 61–109; PULSE 90–103; RESP 12–47
[2016-09-03] MEDS: ALBUTEROL/IPRATROPIUM (NEB) 3 ML AMP HHN SCH ×4 (02:00→19:13)
[2016-09-03] MEDS: NS + KCL 20 MEQ 1,000 ML IV SCH ×2 (05:24→05:31)
[2016-09-03 06:09] LABS: ALBUMIN 2.9 g/dl (3.3-4.9)
[2016-09-03 06:10] LABS: INR 1.16; POTASSIUM 3.9 mmol/L (3.5-5.1); PROTIME 14.9 Sec (12.2-14.2); PT RATIO 1.2
[2016-09-03 06:11] LABS: PARTIAL THROMBOPLASTIN TIME 36.2 Sec (25.0-35.0)
[2016-09-03 06:12] LABS: ALBUMIN/GLOBULIN RATIO 0.82; BILIRUBIN,INDIRECT 0.3 mg/dl (0-1.1); BILIRUBIN,TOTAL 0.3 mg/dl (0.2-1.3); CREATININE 0.6 mg/dl (0.61-1.24); TOTAL PROTEIN 6.4 g/dl (6.1-8.1)
[2016-09-03 06:13] LABS: CALCIUM 8.5 mg/dl (8.4-10.2)
[2016-09-03 06:16] LABS: PHOSPHORUS 3.9 mg/dl (2.5-4.9)
--- NOTE | 2016-09-03 08:10 | PN ---
DATE: 09/03/2016 CARDIOLOGY FOLLOWUP SUBJECTIVE: Discussed with the staff. Rhythm strip was reviewed. The patient remains in sinus rhy thm. The patient complains of epigastric and chest wall tenderness. Remains in sinus rhythm. No p alpitation. Still gets dizzy when walking and sitting, but is much better, stable. Blood pressure has remained improved. MEDICATIONS: Reviewed. PHYSICAL EXAMINATION: VITAL SIGNS: Temperature 98.4, heart rate of 94, blood pressure 120/84, respiration rate of 24, sat urating 93%. HEENT: Normocephalic, atraumatic. No acute distress. Pupils equal, round. CARDIOVASCULAR: Regular rate and rhythm. CHEST: Positive for tenderness. PULMONARY: No wheezes. GASTROINTESTINAL: Soft, mild tenderness to palpation in epigastric area. EXTREMITIES: No edema. NEUROLOGIC: Awake and alert. Responds appropriately. PSYCHIATRIC: Appears to be calm, cooperative, anxious, but pleasant. LABORATORY: Sodium 140, potassium 3.9, BUN of 6, creatinine 0.6, glucose of 98. ALT of 72. ASSESSMENT AND PLAN: 1. Status post cardiopulmonary arrest. 2. Ventricular fibrillation arrest. 3. Status post ST elevation myocardial infarction. 4. Status post PTCA of the LAD and left circumflex artery. 5. Dyslipidemia. 6. History of hypertension. 7. History of coronary artery disease with previous myocardial infarction. 8. Chest pain and abdominal pain. RECOMMENDATIONS: We will continue with the current cardiac care. Aspirin will be continued. Plavi x is off due to concern about anemia. Statin will be continued. Coreg was tolerated, will be aida nued. Dictated By: DENNIS DUBOSE/PEÑA Conf#: [id number] DID#: [id number]
[2016-09-03] MEDS: PANTOPRAZOLE 40 MG INJ IV SCH ×2 (08:15→20:27)
[2016-09-03] MEDS: ASPIRIN 81 MG TAB PO SCH (08:15)
[2016-09-03] MEDS: HEPARIN 5,000 UNIT/0.5 ML VIAL SC SCH ×2 (08:16→20:31)
--- NOTE | 2016-09-03 08:43 | RADRPT ---
PROCEDURE: XR Chest 1 View. CLINICAL INDICATION: Shortness of breath. TECHNIQUE: AP view of the chest was obtained. COMPARISON: Yesterday. FINDINGS: The heart size is within normal limits. Calcified atherosclerosis is noted in the aorta. Central pu lmonary vascular congestion and interstitial prominence in both lungs is unchanged. Patchy infiltrat es throughout the right lung are stable. Small to moderate right pleural effusion has mildly increas ed. Patchy infiltrates are seen throughout the left lung. Infiltrates have mildly increased in the left lower lobe. Osseous structures are unchanged. IMPRESSION: Calcified atherosclerosis in the aorta. Stable central pulmonary vascular congestion and interstitial prominence in both lungs. Patchy infiltrates throughout the left lung. Infiltrates appear to have mildly increased in the lef t lower lobe. Stable patchy infiltrates throughout the right lung. Mild interval increase in small to moderate right pleural effusion. RPTAT: AA .Loki Carrasco MD, MD Date Time Electronically viewed and signed by .Loki Carrasco MD, MD on 09/03/2016 08:43 .P/
--- NOTE | 2016-09-03 09:53 | CONS ---
Date/Time of Note Date/Time of Note DATE: 09/03/16 TIME: 09:50 Assessment/Plan Assessment/Plan Additional Assessment/Plan Chest x-ray was reviewed from today which is showing a recurrent right pleural effusion. Assessment recommendations; 1. Patient admitted with acute CO status post emergent PTCA. 2. Status post respiratory failure. 3. Cardia myopathy. 4. Recurrent right pleural effusion. Obtain ultrasound-guided right-sided thoracentesis. Continue current treatment. Add Lasix 40 mg IV daily. Consultation Date/Type/Reason Admit Date/Time Aug 25, 2016 at 04:41 Initial Consult Date 08/25/16 Type of Consultation: Pulmonary/critical care 24 HR Interval Summary Free Text/Dictation Condition is stable. Remains awake alert. Follows commands and moves all 4 extremities. Denies any shortness of breath, chest pain. General exam; young male, awake alert currently in no distress. Exam/Review of Systems Vital Signs Vitals Vital Signs Date Time Temp Pulse Resp B/P Pulse Ox O2 Delivery O2 Flow Rate FiO2 09/03/16 08:23 2.0 09/03/16 08:23 92 28 97 Nasal Cannula 09/03/16 07:00 98.4 120/82 09/01/16 09:45 30 Intake and Output 09/02/16 09/02/16 09/03/16 15:00 23:00 07:00 Intake Total 1100 ml 1200 ml 850 ml Output Total 2370 ml 1750 ml 1640 ml Balance -1270 ml -550 ml -790 ml Exam HEENT exam is; supple neck, positive JVD. No lymphadenopathy. Midline trachea. No thyromegaly. Patient has good dentition. Pupils are midsize and reactive to light. Extraocular movements are intact. Chest exam is; diminished breath sound right lower lobe. Upper lobes and left lower lobes are clear. S1-S2 audible, no murmurs. Regular rhythm. Abdomen exam is; soft, nondistended. No organomegaly. Bowel sounds audible. Extremity exam is; no peripheral edema. Pulses 1+ bilaterally. HIGH LIFT OPERATOR examination; no focal deficit. Results Result Diagram: 09/02/16 0206 09/03/16 0540 Results 24 hrs Laboratory Tests Test 09/03/16 05:40 Prothrombin Time 14.9 H Prothrombin Time Ratio 1.2 INR International Normalized Ratio 1.16 Activated Partial Thromboplast Time 36.2 H Sodium Level 141 Potassium Level 3.9 Chloride Level 108 Carbon Dioxide Level 22 Anion Gap 15 Blood Urea Nitrogen 6 L Creatinine 0.60 L Glucose Level 98 Calcium Level 8.5 Phosphorus Level 3.9 Magnesium Level 2.0 Total Bilirubin 0.3 Direct Bilirubin 0.00 Indirect Bilirubin 0.3 Aspartate Amino Transf (AST/SGOT) 72 H Alanine Aminotransferase (ALT/SGPT) 66 Alkaline Phosphatase 202 H Total Protein 6.4 Albumin 2.9 L Globulin 3.50 H Albumin/Globulin Ratio 0.82 Medications Medications Current Medications Phenylephrine HCl/ Dextrose (Jorge-Syneph/D5W) 500 ml @ 75 mls/hr TITRATE IV Last administered on 08/25/16 18:21; Admin Dose 37.5 MLS/HR; Start 08/25/16 at 06:30 Pantoprazole (Protonix Iv) 40 mg BID IV Last administered on 09/03/16 08:15; Admin Dose 40 MG; Start 08/25/16 at 11:00 Morphine Sulfate 2 mg 2 mg Q3H PRN IV PAIN LEVEL 6-10 Last administered on 09/02 23:47; Admin Dose 2 MG; Start 08/25/16 at 11:00 Norepinephrine/ Dextrose (Levophed/D5W) 500 ml @ 1.87 mls/hr TITRATE IV Last administered on 08/27/16 19:40; Admin Dose 20 MLS/HR; Start 08/25/16 at 15:00 Acetaminophen (Tylenol Liquid) 650 mg Q4H PRN GTB PAIN AND OR ELEVATED TEMP Last administered on 08/31/16 16:58; Admin Dose 650 MG; Start 08/25/16 at 20:00 Aspirin (Aspirin) 81 mg DAILY PO Last administered on 09/03/16 08:15; Admin Dose 81 MG; Start 08/27/16 at 09:00 Miscellaneous Information 1 ea NOTE XX ; Start 08/26/16 at 17:00 Atorvastatin Calcium (Lipitor) 20 mg HS NGT Last administered on 09/02/16 21: 09; Admin Dose 20 MG; Start 08/28/16 at 21:00 Heparin Sodium (Porcine) 5000 unit 5,000 unit BID SC Last administered on 08:16; Admin Dose 5,000 UNIT; Start 08/30/16 at 11:00 Potassium Chloride/Sodium Chloride (NS-KCl 20 Meq) 1,000 ml @ 100 mls/hr Q10H IV Last administered on 09/03/16 05:24; Admin Dose 100 MLS/HR; Start 09/02/16 at 10:00 Carvedilol (Coreg) 3.125 mg BID PO Last administered on 09/02/16 21:10; Admin Dose 3.125 MG; Start 09/02/16 at 21:00 TUYET SCHWARTZ Sep 03, 2016 09:53
[2016-09-03] MEDS ORDERED: FUROSEMIDE 40 MG INJ IV SCH (10:00)
--- NOTE | 2016-09-03 11:15 | PN ---
Date/Time of Note Date/Time of Note DATE: 09/03/16 TIME: 11:13 Assessment/Plan VTE Prophylaxis VTE Prophylaxis Intervention: heparin Lines/Catheters IV Catheter Type (from Nrs): Peripheral IV Central line still needed: No Urinary Cath still in place: Yes Reason Cath still needed: urinary retention, other (indicate) (strict I/o ) Assessment/Plan Assessment/Plan 1. Cardiac arrest, revived in ER after several rounds of CPR and multiple shocks due to STEMI s/p Cardiac cath 2. STEMI (ST elevation myocardial infarction) s/p Angioplasty - continue current meds, cardiology following 3. Cardiogenic Shock s/p IABP, off pressors now 4. acute GI bleeding resolved, Hb stable 5. Acute Resp Failure due to cardigenic shock , s/p VDRF, now extubated 6. Moderate pleural effusion s/p Thoracentesis Right side 1 L removed 6. Hyperglycemia-reactive s/p insulin gtt 7. R/o Anoxic encephalopathy EEG showed slowing activity c/w acute encephalopathy, neurology following - now alert, awake after extubation d/c IV fluids plan for Thoracentesis today PPx- Heparin GI prophylaxis: Protonix Subjective 24 Hr Interval Summary Free Text/Dictation pt stable after extubation, BP stable, no fever plan for thoracentesis Exam/Review of Systems Vital Signs Vitals Vital Signs Date Time Temp Pulse Resp B/P Pulse Ox O2 Delivery O2 Flow Rate FiO2 09/03/16 11:00 97 21 133/102 99 Nasal Cannula 09/03/16 08:23 2.0 09/03/16 07:00 98.4 09/01/16 09:45 30 Intake and Output 09/02/16 09/02/16 09/03/16 15:00 23:00 07:00 Intake Total 1100 ml 1200 ml 850 ml Output Total 2370 ml 1750 ml 1640 ml Balance -1270 ml -550 ml -790 ml Exam Constitutional: alert, awake, extubated communicative passed swallow Respiratory: bilateral decreased BS, Bibasilar rales Cardiovascular: regular rate and rhythm Gastrointestinal: soft, NT, ND, BS+ Musculoskeletal: nl extremities to inspection, + galicia catheter Results Result Diagram: 09/02/16 0206 09/03/16 0540 Results 24 hrs Laboratory Tests Test 09/03/16 05:40 Prothrombin Time 14.9 H Prothrombin Time Ratio 1.2 INR International Normalized Ratio 1.16 Activated Partial Thromboplast Time 36.2 H Sodium Level 141 Potassium Level 3.9 Chloride Level 108 Carbon Dioxide Level 22 Anion Gap 15 Blood Urea Nitrogen 6 L Creatinine 0.60 L Glucose Level 98 Calcium Level 8.5 Phosphorus Level 3.9 Magnesium Level 2.0 Total Bilirubin 0.3 Direct Bilirubin 0.00 Indirect Bilirubin 0.3 Aspartate Amino Transf (AST/SGOT) 72 H Alanine Aminotransferase (ALT/SGPT) 66 Alkaline Phosphatase 202 H Total Protein 6.4 Albumin 2.9 L Globulin 3.50 H Albumin/Globulin Ratio 0.82 Medications Medications Current Medications Phenylephrine HCl/ Dextrose (Jorge-Syneph/D5W) 500 ml @ 75 mls/hr TITRATE IV Last administered on 08/25/16 18:21; Admin Dose 37.5 MLS/HR; Start 08/25/16 at 06:30 Pantoprazole (Protonix Iv) 40 mg BID IV Last administered on 09/03/16 08:15; Admin Dose 40 MG; Start 08/25/16 at 11:00 Morphine Sulfate 2 mg 2 mg Q3H PRN IV PAIN LEVEL 6-10 Last administered on 09/02 23:47; Admin Dose 2 MG; Start 08/25/16 at 11:00 Norepinephrine/ Dextrose (Levophed/D5W) 500 ml @ 1.87 mls/hr TITRATE IV Last administered on 08/27/16 19:40; Admin Dose 20 MLS/HR; Start 08/25/16 at 15:00 Acetaminophen (Tylenol Liquid) 650 mg Q4H PRN GTB PAIN AND OR ELEVATED TEMP Last administered on 08/31/16 16:58; Admin Dose 650 MG; Start 08/25/16 at 20:00 Aspirin (Aspirin) 81 mg DAILY PO Last administered on 09/03/16 08:15; Admin Dose 81 MG; Start 08/27/16 at 09:00 Miscellaneous Information 1 ea NOTE XX ; Start 08/26/16 at 17:00 Atorvastatin Calcium (Lipitor) 20 mg HS NGT Last administered on 09/02/16 21: 09; Admin Dose 20 MG; Start 08/28/16 at 21:00 Heparin Sodium (Porcine) 5000 unit 5,000 unit BID SC Last administered on 08:16; Admin Dose 5,000 UNIT; Start 08/30/16 at 11:00 Potassium Chloride/Sodium Chloride (NS-KCl 20 Meq) 1,000 ml @ 100 mls/hr Q10H IV Last administered on 09/03/16 05:24; Admin Dose 100 MLS/HR; Start 09/02/16 at 10:00 Carvedilol (Coreg) 3.125 mg BID PO Last administered on 09/02/16 21:10; Admin Dose 3.125 MG; Start 09/02/16 at 21:00 JULIENNE FARMER MD Sep 03, 2016 11:15
[2016-09-03] MEDS ORDERED: LIDOCAINE 1% (MPF) 5 ML VIAL ONE (11:27)
[2016-09-03] MEDS: morphine 2 MG INJ IV PRN ×3 (12:18→21:11)
--- NOTE | 2016-09-03 12:40 | RADRPT ---
PROCEDURE: XR Chest. CLINICAL INDICATION: Status post thoracentesis TECHNIQUE: Single portable view of the chest was obtained COMPARISON: Same day FINDINGS: There is decreased right pleural effusion. There is decreased pulmonary vascular congestion. There are decreased bilateral perihilar and lower lobe infiltrates. The heart, lungs and mediastinum are otherwise unchanged. There is no evidence of pneumothorax status post thoracentesis. RPTAT:AA IMPRESSION: Decreased right pleural effusion. No pneumothorax status post thoracentesis. Decreased pulmonary vascular congestion. .Jesus Gilman MD, MD Date Time Electronically viewed and signed by .Jesus Gilman MD, MD on 09/03/2016 12:40 .S/
--- NOTE | 2016-09-03 12:41 | RADRPT ---
PROCEDURE: US guided right thoracentesis. CLINICAL INDICATION: Shortness of breath. Right pleural effusion. TECHNIQUE: Prior to the procedure, informed consent was obtained. The risks, benefits, and alternatives were e xplained to the patient or the patient's family, including but not limited to bleeding, infection, p ain, visceral or vascular damage, shock, pneumothorax, chest tube placement, air embolism, and . The patient or the patient's family understood the risks and the alternatives and wished to proce ed with the study. Informed written consent was obtained. A procedural pause was performed. The patient's name, date of , and procedure to be performed were verified. Ultrasound of the right hemithorax was performed in the axial and sagittal planes. A right pleural e ffusion is noted. Utilizing ultrasound guidance, optimal location for entry to the pleural cavity wa s ascertained. The overlying skin was prepped and draped in the usual sterile fashion. Approximate ly 10 ml of 1% Xylocaine was injected locally for pain control. Using ultrasound guidance, a 5-Fren Yueh catheter was introduced into the right pleural space without difficulty. Fluid was aspirated . COMPARISON: None. FINDINGS: Initial ultrasound demonstrates fluid in the right pleural space. Approximately 0.950 liters of christina guineous fluid was aspirated and discarded. IMPRESSION: 1. Satisfactory ultrasound-guided right thoracentesis. RPTAT: QQ .Gabe Harris MD, Date Time Electronically viewed and signed by .Gabe Harris MD, on 09/03/2016 12:40 .R/
--- NOTE | 2016-09-03 16:18 | RADRPT ---
PROCEDURE: CT Abdomen and Pelvis without contrast. CLINICAL INDICATION: Right lower quadrant pain. TECHNIQUE: CT scan of the abdomen and pelvis without contrast was performed on a multidetector hig h-resolution CT scanner. The patient was scanned without intravenous contrast. Coronal and sagittal reformatted images were obtained from the axial source images. Images were reviewed on a high-resol [place] [employer] PACS workstation. The total exam CTDI equals 12.24 mGy and the total exam DLP equals 726.01 mG y-cm. One or more of the following dose reduction techniques were used: Automated exposure control. Adjustment of the mA and/or kV according to patient size. Use of iterative reconstruction technique. COMPARISON: None FINDINGS: CT abdomen: The lung bases are remarkable for patchy consolidation in the right lower lobe concerning for pneumo manjula. There is small to moderate left pleural effusion with partial atelectasis of the left lower lo be. There is subsegmental atelectasis in the right middle lobe. The heart size is normal, without pericardial thickening or effusion. There is hepatomegaly. The spleen is normal in size and homogeneous in density. The stomach is par tially collapsed, but is grossly unremarkable. The pancreas as visualized is normal. The gallbladd er and biliary tree are unremarkable and there is no evidence for biliary dilatation. The adrenal g lands are symmetric and normal. The kidneys are symmetrically unremarkable as well. No renal calcu lamont or obstructive uropathy or mass lesion is seen. The aorta is of normal caliber. There is mild aortoiliac atherosclerosis. There is no retroperitone al lymphadenopathy. The lakia hepatis region is clear. The bowel and mesentery, as visualized, are equally unremarkable. CT pelvis: The small bowel loops situated within the pelvis are unremarkable. There is a normal appendix. The p elvic organs are normal. The urinary bladder is decompressed with Jacobo catheter in place. The pelvi c sidewalls and inguinal regions are clear. The sigmoid colon and rectum are unremarkable. No mass , lymphadenopathy is seen. There is trace fluid in the pelvis. No osteolytic or osteoblastic lesion is detected. IMPRESSION: 1. No mass, lymphadenopathy, or focal acute inflammatory process is identified in the abdomen and p chino. 2. Normal appendix. 3. Scattered aortoiliac atherosclerosis. 4. Trace free fluid in the pelvis. 5. Patchy consolidation in the right lung base concerning for pneumonia. 6. Small to moderate left pleural effusion with compressive atelectasis of the left lower lobe. RPTAT: BB .Jose Garcia MD, Date Time Electronically viewed and signed by .Jose Garcia MD, on 09/03/2016 16:18 .O/
[2016-09-03] MEDS: ATORVASTATIN 20 MG TAB NGT SCH (20:27)
--- NOTE | 2016-09-03 21:34 | PN ---
DATE: REFERRING PHYSICIAN: ____ HISTORY OF PRESENT ILLNESS: The patient is a 41-year-old male with a cardiopulmonary arrest, ST lesia vation myocardial infarction, angioplasty, cardiogenic shock, acute GI bleed, acute systolic failure , moderate pleural effusions, thoracentesis, anoxic encephalopathy. CURRENT MEDICATIONS: Include: 1. Protonix 40 mg once a day. 2. Tylenol 650 mg as needed. 3. Potassium chloride as needed. 4. Aspirin 81 mg once a day. 5. Plavix 75 mg once a day. 6. Lipitor 20 mg once a day. 7. Morphine sulfate 2 mg every 3 hours as needed. PHYSICAL EXAMINATION: GENERAL: Today, the patient is more awake and alert status post intubation. CRANIAL NERVES: Cranial nerve II: Pupils equal on both sides with reaction to light. Cranial nerv es III, IV, and : Extraocular movements intact for doll's maneuver. Cranial nerves V and VII: I ntact corneal reflexes. Cranial VIII through XII: Could not assess. MOTOR: Slight movement to painful stimuli. SENSATION: Decreased for glove and sock area for light touch and temperature. COORDINATION: Ksejut-ky-jzdy test intact. HEART: Regular rate and rhythm. LUNGS: Equal breath sounds. ABDOMEN: Soft, nondistended, nontender. ASSESSMENT: 1. The patient is a 41-year-old status post anoxic encephalopathy. 2. Status post cardiopulmonary arrest. 3. Status post ST elevation myocardial infarction with cardiogenic shock. 4. Respiratory failure status post intubation. 5. Recurrent fever with intravenous antibiotic. 6. Stroke prophylaxis. Keep the patient under aspirin as well as Plavix for the stroke prevention from now. Again, thank you for asking me to see the patient with you. Dictated By: DAVID SLATER MD NA/NTS Conf#: [id number] DID#: [id number] CC: JAMEEL HERNANDEZ MD;*EndCC*
[2016-09-04] VITALS (10 sets, daily range): BP systolic 100–158; BP diastolic 51–97; PULSE 80–93; RESP 15–18
[2016-09-04] MEDS: ALBUTEROL/IPRATROPIUM (NEB) 3 ML AMP HHN SCH ×4 (01:58→20:29)
[2016-09-04 07:59] LABS: CALCIUM 8.7 mg/dl (8.4-10.2); CREATININE 0.63 mg/dl (0.61-1.24); POTASSIUM 3.9 mmol/L (3.5-5.1)
[2016-09-04] MEDS: ASPIRIN 81 MG TAB PO SCH (08:36)
[2016-09-04] MEDS: HEPARIN 5,000 UNIT/0.5 ML VIAL SC SCH ×2 (08:38→21:00)
[2016-09-04] MEDS: PANTOPRAZOLE 40 MG INJ IV SCH (08:39)
[2016-09-04] MEDS: LISINOPRIL 10 MG TAB PO SCH (09:15)
--- NOTE | 2016-09-04 10:03 | PN ---
DATE: 09/04/2016 CARDIOLOGY FOLLOWUP SUBJECTIVE: Discussed with the staff. Rhythm strip was reviewed. The patient remains in sinus rhy thm. No more episodes of atrial tachycardia. He still complains of chest wall tenderness with elizabeth thing or coughing and abdominal discomfort. Still complains of weakness. MEDICATIONS: Reviewed. PHYSICAL EXAMINATION: VITAL SIGNS: Temperature 97.5, heart rate of 83, blood pressure 133/87, respiration rate of 20, sat urating 96%. HEENT: Normocephalic, atraumatic. Pupils are equal. CARDIOVASCULAR: Regular rate and rhythm. CHEST: Positive for chest wall tenderness. PULMONARY: With no wheezes. GASTROINTESTINAL: Soft. No rebound or guarding. EXTREMITIES: No significant lower extremity edema. NEUROLOGIC: Awake and alert. LABORATORY DATA: Sodium 137, potassium 3.9, BUN of 8, creatinine 0.63, glucose of 98. WBC of 12, h emoglobin 9.1, platelets 271. CT of the abdomen and pelvis was done, which was reviewed . ASSESSMENT AND PLAN: 1. Status post cardiopulmonary arrest secondary to ventricular fibrillation arrest. 2. ST elevation myocardial infarction status post percutaneous transluminal coronary angioplasty. 3. Hypertension. 4. Dyslipidemia. 5. History of tobacco and alcohol use. 6. Status post respiratory failure, currently improved. 7. Debility. 8. Chest wall tenderness from CPR. RECOMMENDATIONS: I will start the patient on lisinopril, continue with the Coreg. I will check for the iron studies tomorrow. Physical therapy and rehab as tolerated. Dictated By: DENNIS THORNE MD AV/PEÑA Conf#: [id number] DID#: [id number] CC: MARLENY FERRO;*EndCC*
--- NOTE | 2016-09-04 11:17 | CONS ---
Date/Time of Note Date/Time of Note DATE: 09/04/16 TIME: 11:15 Consult Date/Type/Reason Admit Date/Time Aug 25, 2016 at 04:41 Initial Consult Date 08/25/16 Type of Consultation: Pulmonary/critical care Subjective Patient awake alert comfortable this morning complaining of mild shortness of breath on exertion Mild chest discomfort over the CPR site Objective Vital Signs Date Time Temp Pulse Resp B/P Pulse Ox O2 Delivery O2 Flow Rate FiO2 09/04/16 08:27 83 09/04/16 08:25 20 96 Nasal Cannula 2.0 09/04/16 08:01 97.6 133/87 09/01/16 09:45 30 Intake and Output 09/03/16 09/03/16 09/04/16 15:00 23:00 07:00 Intake Total 350 ml 230 ml 300 ml Output Total 2055 ml 1335 ml 1300 ml Balance -1705 ml -1105 ml -1000 ml Exam GENERAL: Well-nourished well-developed Arabic gentleman comfortable at rest VITAL SIGNS: per chart NECK: Supple. No JVD or lymphadenopathy. CARDIAC EXAM: S1, S2. No added sounds or murmurs. CHEST: clear bilaterally, No added sounds, rales or wheezes ABDOMEN: Soft, nontender. No guarding or rebound. EXTREMITIES: No cyanosis, clubbing or edema. NEUROLOGIC: Generalized weakness. No focal deficits. Results/Medications Result Diagram: 09/02/16 0206 09/04/16 0703 Results 24 hrs Laboratory Tests Test 09/04/16 07:03 Sodium Level 137 Potassium Level 3.9 Chloride Level 106 Carbon Dioxide Level 25 Anion Gap 10 # Blood Urea Nitrogen 8 Creatinine 0.63 Glucose Level 98 Calcium Level 8.7 Magnesium Level 2.0 Medications Current Medications Pantoprazole (Protonix Iv) 40 mg BID IV Last administered on 09/04/16 08:39; Admin Dose 40 MG; Start 08/25/16 at 11:00 Morphine Sulfate (morphine) 2 mg Q3H PRN IV PAIN LEVEL 6-10 Last administered on 09/03/16 21:11; Admin Dose 2 MG; Start 08/25/16 at 11:00 Acetaminophen (Tylenol Liquid) 650 mg Q4H PRN GTB PAIN AND OR ELEVATED TEMP Last administered on 08/31/16 16:58; Admin Dose 650 MG; Start 08/25/16 at 20:00 Aspirin (Aspirin) 81 mg DAILY PO Last administered on 09/04/16 08:36; Admin Dose 81 MG; Start 08/27/16 at 09:00 Miscellaneous Information 1 ea NOTE XX ; Start 08/26/16 at 17:00 Atorvastatin Calcium (Lipitor) 20 mg HS NGT Last administered on 09/03/16 20: 27; Admin Dose 20 MG; Start 08/28/16 at 21:00 Heparin Sodium (Porcine) (Heparin (5000 Units/0.5 ml)) 5,000 unit BID SC Last administered on 09/04/16 08:38; Admin Dose 5,000 UNIT; Start 08/30/16 at 11:00 Carvedilol (Coreg) 3.125 mg BID PO Last administered on 09/04/16 08:36; Admin Dose 3.125 MG; Start 09/02/16 at 21:00 Lisinopril (Zestril) 10 mg DAILY PO Last administered on 09/04/16 09:15; Admin Dose 10 MG; Start 09/04/16 at 09:00 Assessment/Plan Chief Complaint/Hosp Course Assessment 1. Status post cardiac arrest and hypothermia protocol, 2. Hypoxemic respiratory failure 3. Coronary artery disease status post Anterolateral ST elevation myocardial infarction. Status post PTCA of the LAD and left circumflex artery 4. Resolving encephalopathy 5. Anemia likely multifactorial 6. Small left pleural effusion with small right infiltrate Plan 1. Encourage out of bed, bronchodilators as needed 2. Incentive spirometry 3. Cardiology recommendations 4. Workup for iron deficiency anemia Disposition Continue telemetry care Problems: OSMANY ESPINOZA [facility], [facility] Sep 04, 2016 11:17
--- NOTE | 2016-09-04 12:54 | PN ---
Date/Time of Note Date/Time of Note DATE: 09/04/16 TIME: 12:51 Assessment/Plan VTE Prophylaxis VTE Prophylaxis Intervention: heparin Lines/Catheters IV [facility] Peripheral IV Urinary Cath still in place: Yes Reason Cath still needed: other (indicate) (d/c today ) Assessment/Plan Assessment/Plan 1. Cardiac arrest, revived in ER after several rounds of CPR and multiple shocks due to STEMI s/p Cardiac cath 2. STEMI (ST elevation myocardial infarction) s/p Angioplasty - continue current meds, cardiology following 3. Cardiogenic Shock s/p IABP, off pressors now 4. acute GI bleeding resolved, Hb stable 5. Acute Resp Failure due to cardigenic shock , s/p VDRF, now extubated 6. Moderate pleural effusion s/p Thoracentesis Right side 1 L removed 6. Hyperglycemia-reactive s/p insulin gtt 7. R/o Anoxic encephalopathy EEG showed slowing activity c/w acute encephalopathy, neurology following - now alert, awake after extubation s/p Thoracentesis on right side 950 cc drained, will order US chest to assess for left pleural effusion, if needed then will order US guided thoracentesis on left side- no need to send fluid studies PPx- Heparin GI prophylaxis: Protonix Subjective 24 Hr Interval Summary Free Text/Dictation Transferred to telemetry, s/p Right thoracentesis 950cc drained, wants to walk, abd pain, better, CT abdomen + pelvis negative for acute findings Exam/Review of Systems Vital Signs Vitals Vital Signs Date Time Temp Pulse Resp B/P Pulse Ox O2 Delivery O2 Flow Rate FiO2 09/04/16 12:12 90 09/04/16 11:30 97.6 18 110/69 96 09/04/16 08:25 Nasal Cannula 2.0 09/01/16 09:45 30 Intake and Output 09/03/16 09/03/16 09/04/16 15:00 23:00 07:00 Intake Total 350 ml 230 ml 300 ml Output Total 2055 ml 1335 ml 1300 ml Balance -1705 ml -1105 ml -1000 ml Exam Constitutional: alert, awake, extubated communicative passed swallow Respiratory: bilateral decreased BS, Bibasilar rales Cardiovascular: regular rate and rhythm Gastrointestinal: soft, NT, ND, BS+ Musculoskeletal: nl extremities to inspection, + galicia catheter Results Result Diagram: 09/02/16 0206 09/04/16 0703 Results 24 hrs Laboratory Tests Test 09/04/16 07:03 Sodium Level 137 Potassium Level 3.9 Chloride Level 106 Carbon Dioxide Level 25 Anion Gap 10 # Blood Urea Nitrogen 8 Creatinine 0.63 Glucose Level 98 Calcium Level 8.7 Magnesium Level 2.0 Medications Medications Current Medications Pantoprazole (Protonix Iv) 40 mg BID IV Last administered on 09/04/16 08:39; Admin Dose 40 MG; Start 08/25/16 at 11:00 Morphine Sulfate (morphine) 2 mg Q3H PRN IV PAIN LEVEL 6-10 Last administered on 09/03/16 21:11; Admin Dose 2 MG; Start 08/25/16 at 11:00 Acetaminophen (Tylenol Liquid) 650 mg Q4H PRN GTB PAIN AND OR ELEVATED TEMP Last administered on 08/31/16 16:58; Admin Dose 650 MG; Start 08/25/16 at 20:00 Aspirin (Aspirin) 81 mg DAILY PO Last administered on 09/04/16 08:36; Admin Dose 81 MG; Start 08/27/16 at 09:00 Miscellaneous Information 1 ea NOTE XX ; Start 08/26/16 at 17:00 Atorvastatin Calcium (Lipitor) 20 mg HS NGT Last administered on 09/03/16 20: 27; Admin Dose 20 MG; Start 08/28/16 at 21:00 Heparin Sodium (Porcine) (Heparin (5000 Units/0.5 ml)) 5,000 unit BID SC Last administered on 09/04/16 08:38; Admin Dose 5,000 UNIT; Start 08/30/16 at 11:00 Carvedilol (Coreg) 3.125 mg BID PO Last administered on 09/04/16 08:36; Admin Dose 3.125 MG; Start 09/02/16 at 21:00 Lisinopril (Zestril) 10 mg DAILY PO Last administered on 09/04/16 09:15; Admin Dose 10 MG; Start 09/04/16 at 09:00 JULIENNE FARMER MD Sep 04, 2016 12:54
--- NOTE | 2016-09-04 14:41 | RADRPT ---
PROCEDURE: US left chest. CLINICAL INDICATION: Pleural effusion TECHNIQUE: Multiple real-time images were acquired of the patient's left chest utilizing a high re solution transducer. COMPARISON: Recent x-ray FINDINGS: There is a moderate - sized left pleural effusion. IMPRESSION: Moderate left pleural effusion. RPTAT: AA Branden Jean Physician Date Time Electronically viewed and signed by Branden Jean Physician on 09/04/2016 14:41 RA/
[2016-09-04] MEDS: ATORVASTATIN 20 MG TAB NGT SCH (21:20)
[2016-09-04] MEDS: PANTOPRAZOLE (EC) 40 MG TAB PO SCH (21:20)
[2016-09-05] VITALS (12 sets, daily range): BP systolic 104–130; BP diastolic 67–79; PULSE 79–93; RESP 15–20
[2016-09-05] MEDS: ALBUTEROL/IPRATROPIUM (NEB) 3 ML AMP HHN SCH ×4 (02:16→20:41)
[2016-09-05] MEDS: PANTOPRAZOLE (EC) 40 MG TAB PO SCH ×2 (06:13→18:20)
[2016-09-05 07:51] LABS: ADD SCAN DIFF NO
[2016-09-05 07:54] LABS: BASOPHIL # 0.1 10^3/ul (0.0-0.1); BASOPHILS % 0.6 % (0.0-2.0); EOSINOPHILS # 0.7 10^3/ul (0.0-0.5); EOSINOPHILS % 4.5 % (0.0-7.0); HEMATOCRIT 36.7 % (42.0-52.0); LYMPHOCYTES # 2.7 10^3/ul (0.8-2.9); LYMPHOCYTES % 16.9 % (15.0-51.0); MEAN CORPUSCULAR HEMOGLOBIN 29.8 pg (29.0-33.0); MEAN CORPUSCULAR HGB CONC 32.7 g/dl (32.0-37.0); MEAN CORPUSCULAR VOLUME 91.1 fl (82.0-101.0); MEAN PLATELET VOLUME 9.6 fl (7.4-10.4); MONOCYTE # 1.1 10^3/ul (0.3-0.9); MONOCYTES % 6.5 % (0.0-11.0); NEUTROPHIL # 11.1 10^3/ul (1.6-7.5); NEUTROPHILS % 69.4 % (39.0-77.0); PLATELET COUNT 570 10^3/UL (140-415); RED BLOOD COUNT 4.03 10^6/ul (4.70-6.10); WHITE BLOOD COUNT 16.1 10^3/ul (4.8-10.8)
[2016-09-05 08:08] LABS: ALBUMIN 3.4 g/dl (3.3-4.9); ALBUMIN/GLOBULIN RATIO 0.91; BILIRUBIN,INDIRECT 0.3 mg/dl (0-1.1); BILIRUBIN,TOTAL 0.3 mg/dl (0.2-1.3); CALCIUM 9.1 mg/dl (8.4-10.2); CREATININE 0.68 mg/dl (0.61-1.24); MAGNESIUM 2.1 mg/dl (1.7-2.5); TOTAL PROTEIN 7.1 g/dl (6.1-8.1)
[2016-09-05 08:24] LABS: IRON 40 ug/dl (35-150)
[2016-09-05 08:34] LABS: TOTAL IRON BINDING CAPACITY 267 ug/dl (241-421)
[2016-09-05] MEDS: LISINOPRIL 10 MG TAB PO SCH (09:19)
--- NOTE | 2016-09-05 11:45 | PN ---
Date/Time of Note Date/Time of Note DATE: 09/05/16 TIME: 11:41 Assessment/Plan VTE Prophylaxis VTE Prophylaxis Intervention: heparin Lines/Catheters IV [facility]from [facility] [place] Urinary Cath still in place: No Assessment/Plan Assessment/Plan 1. Cardiac arrest, revived in ER after several rounds of CPR and multiple shocks due to STEMI s/p Cardiac cath 2. STEMI (ST elevation myocardial infarction) s/p Angioplasty - continue current meds, cardiology following 3. Cardiogenic Shock s/p IABP, off pressors now 4. acute GI bleeding resolved, Hb stable 5. Acute Resp Failure due to cardigenic shock , s/p VDRF, now extubated 6. Moderate pleural effusion s/p Thoracentesis Right side x 2 so far, now US showed moderate left pleural effusion 6. Hyperglycemia-reactive s/p insulin gtt 7. R/o Anoxic encephalopathy EEG showed slowing activity c/w acute encephalopathy, neurology following - now alert, awake after extubation s/p Thoracentesis on right side x 2 today, US showed left moderate pleural effusion - plan for thoracentesis on left side - no need to send fluid studies PPx- Heparin GI prophylaxis: Protonix Subjective 24 Hr Interval Summary Free Text/Dictation US showed moderate pleural effusion, BP stable, no chest pain, mild SOB with ambulation Exam/Review of Systems Vital Signs Vitals Vital Signs Date Time Temp Pulse Resp B/P Pulse Ox O2 Delivery O2 Flow Rate FiO2 09/05/16 11:28 97.5 85 17 104/68 95 09/05/16 07:48 2.0 09/05/16 07:48 Nasal Cannula 09/04/16 20:30 21 Intake and Output 09/04/16 09/04/16 09/05/16 15:00 23:00 07:00 Intake Total 1100 ml 500 ml Output Total 1600 ml Balance -500 ml 500 ml Exam Constitutional: alert, awake, extubated communicative passed swallow Respiratory: bilateral decreased BS, Bibasilar rales , Decreased BS on left side > right side Cardiovascular: regular rate and rhythm Gastrointestinal: soft, NT, ND, BS+ Musculoskeletal: nl extremities to inspection, + galicia catheter Results Result Diagram: 09/05/16 0655 09/05/16 0655 Results 24 hrs Laboratory Tests Test 09/05/16 06:55 White Blood Count 16.1 #H Red Blood Count 4.03 #L Hemoglobin 12.0 #L Hematocrit 36.7 #L Mean Corpuscular Volume 91.1 Mean Corpuscular Hemoglobin 29.8 Mean Corpuscular Hemoglobin Concent 32.7 Red Cell Distribution Width 14.0 Platelet Count 570 #H Mean Platelet Volume 9.6 Neutrophils % 69.4 Lymphocytes % 16.9 Monocytes % 6.5 Eosinophils % 4.5 Basophils % 0.6 Nucleated Red Blood Cells % 0.0 Neutrophils # 11.1 H Lymphocytes # 2.7 Monocytes # 1.1 H Eosinophils # 0.7 H Basophils # 0.1 Nucleated Red Blood Cells # 0.0 Sodium Level 138 Potassium Level 4.0 Chloride Level 106 Carbon Dioxide Level 23 Anion Gap 13 Blood Urea Nitrogen 10 Creatinine 0.68 Glucose Level 100 Calcium Level 9.1 Magnesium Level 2.1 Iron Level 40 Total Iron Binding Capacity 267 Percent Iron Saturation 15 L Ferritin 225.0 Total Bilirubin 0.3 Direct Bilirubin 0.00 Indirect Bilirubin 0.3 Aspartate Amino Transf (AST/SGOT) 79 H Alanine Aminotransferase (ALT/SGPT) 93 H Alkaline Phosphatase 183 H B-Type Natriuretic Peptide 2830 H Total Protein 7.1 Albumin 3.4 Globulin 3.70 H Albumin/Globulin Ratio 0.91 Medications Medications Current Medications Morphine Sulfate (morphine) 2 mg Q3H PRN IV PAIN LEVEL 6-10 Last administered on 09/03/16 21:11; Admin Dose 2 MG; Start 08/25/16 at 11:00 Acetaminophen (Tylenol Liquid) 650 mg Q4H PRN GTB PAIN AND OR ELEVATED TEMP Last administered on 08/31/16 16:58; Admin Dose 650 MG; Start 08/25/16 at 20:00 Aspirin (Aspirin) 81 mg DAILY PO Last administered on 09/04/16 08:36; Admin Dose 81 MG; Start 08/27/16 at 09:00 Miscellaneous Information 1 ea NOTE XX ; Start 08/26/16 at 17:00 Atorvastatin Calcium (Lipitor) 20 mg HS NGT Last administered on 09/04/16 21: 20; Admin Dose 20 MG; Start 08/28/16 at 21:00 Heparin Sodium (Porcine) (Heparin (5000 Units/0.5 ml)) 5,000 unit BID SC Last administered on 09/04/16 08:38; Admin Dose 5,000 UNIT; Start 08/30/16 at 11:00 Carvedilol (Coreg) 3.125 mg BID PO Last administered on 09/05/16 09:19; Admin Dose 3.125 MG; Start 09/02/16 at 21:00 Lisinopril (Zestril) 10 mg DAILY PO Last administered on 09/05/16 09:19; Admin Dose 10 MG; Start 09/04/16 at 09:00 Pantoprazole (Protonix Tab) 40 mg BID@ PO Last administered on 09/05/16 06:13; Admin Dose 40 MG; Start 09/04/16 at 19:30 JULIENNE FARMER MD Sep 05, 2016 11:45
[2016-09-05] MEDS: CLOPIDOGREL 75 MG TAB PO SCH (14:12)
[2016-09-05] MEDS: ASPIRIN 81 MG TAB PO SCH (14:12)
[2016-09-05] MEDS: HEPARIN 5,000 UNIT/0.5 ML VIAL SC SCH ×2 (14:13→20:59)
--- NOTE | 2016-09-05 14:47 | RADRPT ---
PROCEDURE: US left chest. CLINICAL INDICATION: Pleural effusion TECHNIQUE: Multiple real-time images were acquired of the patient's left chest utilizing a high re solution transducer. COMPARISON: Recent x-ray FINDINGS: There is a small left pleural effusion, not enough for a therapeutic thoracentesis. IMPRESSION: Small left pleural effusion. RPTAT: AA Branden Jean Physician Date Time Electronically viewed and signed by Branden Jean Physician on 09/05/2016 14:46 RA/
--- NOTE | 2016-09-05 15:40 | PN ---
DATE: 09/05/2016 CARDIOLOGY FOLLOWUP SUBJECTIVE: Discussed with the staff. The patient is feeling better, is able to walk. Denies any shortness of breath or dyspnea to me. Has some chest wall tenderness. MEDICATIONS: Reviewed. PHYSICAL EXAMINATION: VITAL SIGNS: Temperature 97.5, heart rate of 82, blood pressure 104/68, respirations 18, saturating 95%. HEENT: Normocephalic, atraumatic. Pupils are equal. CARDIOVASCULAR: Regular rate and rhythm. PULMONARY: With no wheezes heard. GASTROINTESTINAL: Soft, nontender. EXTREMITIES: No significant edema. NEUROLOGIC: Awake and alert. PSYCHIATRIC: Calm, pleasant. LABORATORY: Reviewed. Sodium 138, potassium 4, BUN of 10, creatinine 0.68, glucose 100. ALT of 79 . ASSESSMENT AND PLAN: 1. Status post cardiopulmonary arrest. 2. Ventricular fibrillation arrest, currently stable. 3. Status post anterolateral ST elevation myocardial infarction. Repeat percutaneous coronary inte rvention of the left anterior descending and left circumflex artery. 4. Hypertension. 5. Pleural effusion, status post thoracentesis. 6. Elevated liver function tests. 7. Anemia, currently has been stabilized. RECOMMENDATIONS: 1. I will resume the patient on Plavix now that the hemoglobin and hematocrit has remained stable a nd there are no signs of bleeding. 2. Continue with the rest of her cardiac care. 3. Discharge planning when okay from an internal medicine standpoint. 4. The patient has been given my information to follow up with me as an outpatient. Dictated By: DENNIS DUBOSE/PEÑA Conf#: [id number] DID#: [id number] CC: Unknown Grewal;*EndCC*
--- NOTE | 2016-09-05 16:07 | CONS ---
Date/Time of Note Date/Time of Note DATE: 09/05/16 TIME: 16:05 Consult Date/Type/Reason Admit Date/Time Aug 25, 2016 at 04:41 Initial Consult Date 08/25/16 Type of Consultation: Pulmonary/critical care Subjective Comfortable. Objective Vital Signs Date Time Temp Pulse Resp B/P Pulse Ox O2 Delivery O2 Flow Rate FiO2 09/05/16 15:46 97.8 94 18 111/72 96 09/05/16 14:44 Nasal Cannula 2.0 09/04/16 20:30 21 Intake and Output 09/04/16 09/04/16 09/05/16 15:00 23:00 07:00 Intake Total 1100 ml 500 ml Output Total 1600 ml Balance -500 ml 500 ml Exam GENERAL: Well-nourished well-developed [place] gentleman comfortable at rest VITAL SIGNS: per chart NECK: Supple. No JVD or lymphadenopathy. CARDIAC EXAM: S1, S2. No added sounds or murmurs. CHEST: clear bilaterally, No added sounds, rales or wheezes ABDOMEN: Soft, nontender. No guarding or rebound. EXTREMITIES: No cyanosis, clubbing or edema. NEUROLOGIC: Generalized weakness. No focal deficits. Results/Medications Result Diagram: 09/05/16 0655 09/05/16 0655 Results 24 hrs Laboratory Tests Test 09/05/16 06:55 White Blood Count 16.1 #H Red Blood Count 4.03 #L Hemoglobin 12.0 #L Hematocrit 36.7 #L Mean Corpuscular Volume 91.1 Mean Corpuscular Hemoglobin 29.8 Mean Corpuscular Hemoglobin Concent 32.7 Red Cell Distribution Width 14.0 Platelet Count 570 #H Mean Platelet Volume 9.6 Neutrophils % 69.4 Lymphocytes % 16.9 Monocytes % 6.5 Eosinophils % 4.5 Basophils % 0.6 Nucleated Red Blood Cells % 0.0 Neutrophils # 11.1 H Lymphocytes # 2.7 Monocytes # 1.1 H Eosinophils # 0.7 H Basophils # 0.1 Nucleated Red Blood Cells # 0.0 Sodium Level 138 Potassium Level 4.0 Chloride Level 106 Carbon Dioxide Level 23 Anion Gap 13 Blood Urea Nitrogen 10 Creatinine 0.68 Glucose Level 100 Calcium Level 9.1 Magnesium Level 2.1 Iron Level 40 Total Iron Binding Capacity 267 Percent Iron Saturation 15 L Ferritin 225.0 Total Bilirubin 0.3 Direct Bilirubin 0.00 Indirect Bilirubin 0.3 Aspartate Amino Transf (AST/SGOT) 79 H Alanine Aminotransferase (ALT/SGPT) 93 H Alkaline Phosphatase 183 H B-Type Natriuretic Peptide 2830 H Total Protein 7.1 Albumin 3.4 Globulin 3.70 H Albumin/Globulin Ratio 0.91 Medications Current Medications Morphine Sulfate (morphine) 2 mg Q3H PRN IV PAIN LEVEL 6-10 Last administered on 09/03/16 21:11; Admin Dose 2 MG; Start 08/25/16 at 11:00 Acetaminophen (Tylenol Liquid) 650 mg Q4H PRN GTB PAIN AND OR ELEVATED TEMP Last administered on 08/31/16 16:58; Admin Dose 650 MG; Start 08/25/16 at 20:00 Aspirin (Aspirin) 81 mg DAILY PO Last administered on 09/05/16 14:12; Admin Dose 81 MG; Start 08/27/16 at 09:00 Miscellaneous Information 1 ea NOTE XX ; Start 08/26/16 at 17:00 Atorvastatin Calcium (Lipitor) 20 mg HS NGT Last administered on 09/04/16 21: 20; Admin Dose 20 MG; Start 08/28/16 at 21:00 Heparin Sodium (Porcine) (Heparin (5000 Units/0.5 ml)) 5,000 unit BID SC Last administered on 09/05/16 14:13; Admin Dose 5,000 UNIT; Start 08/30/16 at 11:00 Carvedilol (Coreg) 3.125 mg BID PO Last administered on 09/05/16 09:19; Admin Dose 3.125 MG; Start 09/02/16 at 21:00 Lisinopril (Zestril) 10 mg DAILY PO Last administered on 09/05/16 09:19; Admin Dose 10 MG; Start 09/04/16 at 09:00 Pantoprazole (Protonix Tab) 40 mg BID@18 PO Last administered on 09/05/16 06:13; Admin Dose 40 MG; Start 09/04/16 at 19:30 Clopidogrel Bisulfate (plaVIX) 75 mg DAILY PO Last administered on 09/05/16 14 :12; Admin Dose 75 MG; Start 09/05/16 at 14:00 Assessment/Plan Chief Complaint/Hosp Course Assessment 1. Status post cardiac arrest and hypothermia protocol, 2. Hypoxemic respiratory failure 3. Coronary artery disease status post Anterolateral ST elevation myocardial infarction. Status post PTCA of the LAD and left circumflex artery 4. Resolving encephalopathy 5. Anemia likely multifactorial 6. Small left pleural effusion with small right infiltrate Plan 1. Encourage out of bed, bronchodilators as needed 2. Incentive spirometry 3. Cardiology recommendations 4. Anemia work up. 5. Encourage out of bed. Disposition transfer to med surg. Problems: OSMANY ESPINOZA MD, [facility] Sep 05, 2016 16:07
[2016-09-05] MEDS: ATORVASTATIN 20 MG TAB NGT SCH (20:56)
[2016-09-06] VITALS (7 sets, daily range): BP systolic 90–127; BP diastolic 56–76; PULSE 79–82; RESP 18–19
[2016-09-06] MEDS: ALBUTEROL/IPRATROPIUM (NEB) 3 ML AMP HHN SCH ×2 (02:41→08:01)
[2016-09-06] MEDS: PANTOPRAZOLE (EC) 40 MG TAB PO SCH (06:07)
[2016-09-06] MEDS: ASPIRIN 81 MG TAB PO SCH (08:17)
[2016-09-06] MEDS: CLOPIDOGREL 75 MG TAB PO SCH (08:17)
[2016-09-06] MEDS: HEPARIN 5,000 UNIT/0.5 ML VIAL SC SCH (08:18)
[2016-09-06] MEDS: LISINOPRIL 10 MG TAB PO SCH (08:18)
[2016-09-06] MEDS ORDERED: LISI10TA2 PO (10:07)
[2016-09-06] MEDS ORDERED: ATOR40TA68 PO (10:07)
[2016-09-06] MEDS ORDERED: CARV3.1260 PO (10:07)
[2016-09-06] MEDS ORDERED: CLOP75TA28 PO (10:07)
[2016-09-06] MEDS ORDERED: ASPI81TA3 PO (10:07)
--- NOTE | 2016-09-06 10:08 | PDOCDIS ---
Discharge Instructions CONDITION Patient Condition: Good HOME CARE INSTRUCTIONS: Special Diet: Cardiac ACTIVITY: Activity Restrictions: No Restrictions FOLLOW UP/APPOINTMENTS Appointments F/U WITH A PCP AND DR DENNIS THORNE IN 1-2 WEEKS JAMEEL HERNANDEZ Sep 06, 2016 10:08
--- NOTE | 2016-09-06 14:39 | DS ---
DATE OF ADMISSION: 08/25/2016 DATE OF DISCHARGE: 09/06/2016 DISCHARGE DIAGNOSES: 1. Cardiac arrest with STEMI, status post cardiac catheterization, with angioplasty. Stable to disc harge with cardiac medications. 2. Cardiogenic shock, status post intraaortic balloon pump and pressors. Now resolved. 3. Acute gastrointestinal bleed. Now resolved. 4. Respiratory failure with intubation. Now resolved. 5. Moderate pleural effusion, status post thoracentesis x2. Now stable. 6. Hyperglycemia, which was reactive. The patient is not a diabetic. 7. Anoxic encephalopathy. Now resolved. The patient's mentation is within normal limits. HOSPITAL COURSE: The patient is a 41-year-old male with no known medical history. The patient pres ented with cardiac arrest and was found to have STEMI and was sent to the cardiac catheterization [facility], where the patient had angioplasty. The patient was in cardiogenic shock, was in the ICU, was intubated. The patient was on an intraaortic balloon pump at one point, as well as pressors. E ventually he was weaned off and BP was stable. The patient was put on cardiac medications, as he do es have diffuse coronary artery disease. The patient did have a gastrointestinal bleed that resolve d, felt to be secondary to the cardiac arrest. The patient had acute respiratory failure and was in tubated for some time. He did have an elevated blood sugar, but his A1c is 5.1 and his elevated suga r was secondary to stress from the cardiac arrest. Eventually the insulin drip was discontinued. T he patient did have signs of anoxic encephalopathy. EEG did show encephalopathy, but this did resol ve and the patient's mentation stabilized. The patient did have pleural effusions and require thora centesis x2. The effusions were on the right side of the chest. The patient was seen by pulmonology . The patient was felt to be stable for discharge per cardiology, with cardiac medications. Of not e, his LDL was 61 and his A1c was normal at 5.1. The patient's mentation was within normal limits o n the day of discharge. He had no complaints and no shortness of breath. Vitals, labs, and physica l exam were stable. He had no acute complaints and his questions were answered. CONDITION ON DISCHARGE: Stable. DISPOSITION: To home. MEDICATIONS: The patient was given prescriptions for: 1. Aspirin 81 daily. 2. Lipitor 40 mg p.o. at bedtime. 3. Coreg 3.125 mg p.o. b.i.d. 4. Plavix 75 daily. 5. Lisinopril 10 mg daily. The patient has no reported home medications. FOLLOWUP: The patient is to follow up with his PCP and his spotlight operator, Dr. Javy Dyer, in 1 to 2 weeks. Greater than 30 minutes was spent coordinating the discharge of this patient. Dictated By: JAMEEL HERNANDEZ MD BS/NTS Conf#: [id number] DID#: [id number]
== END 2016-09-06 11:50 | disposition home or self-care (01) | DRG 270 ==
LOC: E/R 01:30 → EDBD 01:30 → SDS 02:32 → CCL 02:32 → ICU 04:41 → CCL 05:00 → MS4 09-03 22:20
PROVIDERS: ADMIT Internal Medicine; ATTEND Internal Medicine
PROC: 5A12012 Performance of Cardiac Output, Single, Manual (ICD-10-PCS; 2016-08-25)
PROC: 5A1955Z Respiratory Ventilation, Greater than 96 Consecutive Hours (ICD-10-PCS; 2016-08-25)
PROC: 4A023N7 Measurement of Cardiac Sampling and Pressure, Left Heart, Percutaneous Approach (ICD-10-PCS; 2016-08-25)
PROC: B211YZZ Fluoroscopy of Multiple Coronary Arteries using Other Contrast (ICD-10-PCS; 2016-08-25)
PROC: 5A2204Z Restoration of Cardiac Rhythm, Single (ICD-10-PCS; 2016-08-25)
PROC: 0BH17EZ Insertion of Endotracheal Airway into Trachea, Via Natural or Artificial Opening (ICD-10-PCS; 2016-08-25)
PROC: 05H633Z Insertion of Infusion Device into Left Subclavian Vein, Percutaneous Approach (ICD-10-PCS; 2016-08-25)
PROC: 02713ZZ Dilation of Coronary Artery, Two Arteries, Percutaneous Approach (ICD-10-PCS; principal; 2016-08-25 03:00)
PROC: 5A02210 Assistance with Cardiac Output using Balloon Pump, Continuous (ICD-10-PCS; 2016-08-25 03:00)
PROC: 0W993ZZ Drainage of Right Pleural Cavity, Percutaneous Approach (ICD-10-PCS; 2016-08-31)
PROC: 30233N1 Transfusion of Nonautologous Red Blood Cells into Peripheral Vein, Percutaneous Approach (ICD-10-PCS; 2016-08-31)
PROC: 0W994ZZ Drainage of Right Pleural Cavity, Percutaneous Endoscopic Approach (ICD-10-PCS; 2016-09-03)
DX: I21.09 ST elevation (STEMI) myocardial infarction involving other coronary artery of anterior wall (principal); I46.9 Cardiac arrest, cause unspecified; I49.01 Ventricular fibrillation; J96.01 Acute respiratory failure with hypoxia; G93.1 Anoxic brain damage, not elsewhere classified; J90 Pleural effusion, not elsewhere classified; J18.9 Pneumonia, unspecified organism; I11.0 Hypertensive heart disease with heart failure; I50.9 Heart failure, unspecified; K62.5 Hemorrhage of anus and rectum; D69.6 Thrombocytopenia, unspecified; R73.9 Hyperglycemia, unspecified; I25.5 Ischemic cardiomyopathy; I25.10 Atherosclerotic heart disease of native coronary artery without angina pectoris; I25.82 Chronic total occlusion of coronary artery; E78.5 Hyperlipidemia, unspecified; F17.200 Nicotine dependence, unspecified, uncomplicated; D64.9 Anemia, unspecified; Z98.61 Coronary angioplasty status; Z91.19 Patient's noncompliance with other medical treatment and regimen
CPT/HCPCS: 31500; 36415; 36430; 36600; 71010; 74000; 74176; 76604; 76705; 76942; 80048; 80053; 80061; 82150; 82270; 82550; 82553; 82728; 82803; 82962; 83036; 83540; 83615; 83690; 83735; 83880; 84100; 84132; 84439; 84443; 84484; 85025; 85378; 85384; 85610; 85730; 86850; 86900; 86901; 86920; 87040; 87070; 87081; 87086; 87102; 87116; 92610; 92920; 92921; 92950; 93005; 93306; 93458; 94002; 94003; 94640; 94664; 94770; 96374; 96375; J1940; C1725; C1726; C1769; C1887; C1894; C9113; J0171; J0282; J0583; J0692; J1644; J1815; J2060; J2250; J2270; J2370; J2543; J3010; J3475; J3480; J7030; J7040; J7050; J7060; P9016; Q9967